=== PATIENT | male | born 1955 | race Caucasian/White ===

== ENCOUNTER → 2023-06-23 08:17 | Outpatient (REF) | payer BC, SELFPAY | LOC: DHCBS MAIN 08:17 | PROVIDERS: ATTENDING PHYSICIAN Internal Medicine Cardiovascular Disease; FAMILY PHYSICIAN Internal Medicine | DX: I10 Essential (primary) hypertension (principal) | CPT/HCPCS: 93306 ==

== ENCOUNTER 2024-08-28 15:53 | Inpatient (IN) | payer BC, SELFPAY ==
[2024-08-28] VITALS (12 sets, daily range): BP systolic 101–132; BP diastolic 65–93; BMI 31.7
--- NOTE | 2024-08-28 10:31 | ED.GENMED ---
History of Present Illness
General
Chief Complaint: Breathing Problem
Source: patient
Time Seen by Provider: 08/28/24 10:13
History of Present Illness
History of Present Illness:
68-year-old male presents to the emergency room from outpatient stress test where he essentially failed a stress test. Patient has been experiencing shortness of breath with walking short distances. It is significant enough that he has to stop and
rest. Patient was referred for stress test today and performing the stress test developed shortness of breath fatigue and was noted to have heart block as well as ST depression in the inferior leads
Past History
Past History
ED Past Medical History: CAD, HTN, Hypercholesterolemia and IDDM
Social History
Tobacco: Non-smoker
Alcohol: Occasional
Drug: None
Personal:
Living: with family
Phy Exam
Physical Exam
Physical Exam:
General: Awake, Alert, Oriented X3. No acute distress.
Vitals: unremarkable
Head: Atraumatic
Eyes: Pupils equal, EOMI
Throat: Airway intact, no exudates
Neck: Trachea midline
Lungs: Clear and equal b/l
Heart: Regular rate, no murmurs
Abd: Soft, Nontender, No pulsatile mass
Neuro: Nonfocal
Skin: Warm, dry, no rash
Extremities: pulses equal b/l, no edema
Scores
Heart Failure Risk
Heart Failure Risk Score: Not Applicable
Course
Orders/Labs/Results
Orders:
Orders
08/28/24 Lunch
Cholesterol Lowering
Cholesterol Lowering: Sodium, 2 Gram
1800 martha/15 CHO Diabetic
08/28/24 10:21
EKG [Electrocardiogram (*1)] Urgent
Reason for Study: Shortness of Breath
EKG- Treatment ONCE
08/28/24 10:30
Cardiac Monitoring- Treatment ONCE
CR Chest Portable - 1 View Urgent
Comment:
Reason For Exam: chest pain, sob
Reason Study Needs to be Portable: Patient Unstable
08/28/24 10:32
Nitroglycerin 100 mg/250 ml [Nitroglycerin Premix] 100 mg in 250 ml IV NOW
Initial dose in mcg/min, then titrate:: 5
Titrate to keep:: SBP < 160 mmHg
Titrate by mcg/min:: 5 mcg/min, may increase by 10 mcg/min if dose > 20 mcg/min
Frequency of titrations (minutes):: every 3-5 minutes
Maximum dose in mcg/min:: 200
Begin to taper infusion when:: Remained at goal for 2hrs
Taper by mcg/min:: 5 mcg/min
Frequency of taper (minutes) if patient maintains goal:: 30
Taper to off?: Yes
If infusion off & no longer maintaining goal:: Contact Provider
08/28/24 10:34
Aspirin Chewable [Low Strength Aspirin] 324 mg PO NOW STA
08/28/24 10:38
Basic Metabolic Panel Urgent
Complete Blood Count/With Diff Urgent
Magnesium Urgent
NT-proBNP Urgent
Comment: [place] PER [id number]
Troponin I Urgent
08/28/24 10:41
Heparin 4,000 units IV NOW STA
Pharmacy Request to Place See Dose Instructions PO NOW STA
Discontinue all Active Warfarin orders?: Yes
08/28/24 10:[address] Non Medication Order As Directed
Physician Order: PTT 6 hours after initial start of Heparin infusion
Above order entered?: Yes
08/28/24 10:43
PTT Urgent
Comment: Obtain baseline before beginning heparin infusion if not already collected
08/28/24 10:45
Heparin [id number] Units/250 ml 25,000 units in 250 ml IV PER PROTOCOL
Weight to be used for heparin protocol in kilograms (kg):: 112
Protocol:: Cardiac Tx/Acute Coronary
PTT Goal Range to be used:: PTT 73 to 111 seconds
Order type:: Initial
INITIAL Infusion Dose (UNITS/KG/hr) & then follow protocol:: 15 units/kg/hr
Infusion Dose in UNITS/hr & then follow protocol (UNITS/hr):: 1,500
INFUSION RATE in mL/hr & then follow protocol (mL/hr):: 15
PTT less than or equal to 64 seconds:: Increase rate by 200 units/hr (+ 2 mL/hr)
PTT 64.1 to 72.9 seconds:: Increase rate by 100 units/hr (+ 1 mL/hr)
PTT 73 to 111 seconds:: Target Range. No change in rate.
PTT 111.1 to 130.9 seconds:: Decrease rate by 100 units/hr (- 1 mL/hr)
PTT 131 to 199.9 seconds:: HOLD for 1 hr. Then decrease rate by 200 units/hr (- 2 mL/hr)
PTT greater than or equal to 200 seconds:: HOLD for 2 hrs & Notify Provider. Then decrease by 200 units/hr (-
2 mL/hr)
Lab follow-up:: Each change, PTT q6h until 2 consecutive are therapeutic. Then PTT
daily.
08/28/24 11:[address] See Dose Instructions IV DIRECTED
08/28/24 11:02
Heparin [id number] Units/250 ml 25,000 units in 250 ml .ROUTE .STK-MED
08/28/24 11:43
Verapamil Injectable [Isoptin/Verapamil Injection] 5 mg .ROUTE .STK-MED ONE
08/28/24 11:44
Heparin 1000 Units/500 ml [Heparin] 1,000 units in 500 ml .ROUTE .STK-MED
Heparin Sodium,Porcine/Ns/Pf [Heparin 2000 Units/1000 ml] 2,000 unit in 1,000 ml .ROUTE .STK-MED
Lidocaine HCl/Pf [Xylocaine-Mpf 1% Vial] 50 mg .ROUTE .STK-MED ONE
Nitroglycerin [Tridil] 1,500 mcg .ROUTE .STK-MED ONE
08/28/24 12:13
Fentanyl Citrate/Pf [Sublimaze] 100 mcg .ROUTE .STK-MED ONE
Heparin 10,000 units .ROUTE .STK-MED ONE
Midazolam HCl [Versed] 2 mg .ROUTE .STK-MED ONE
08/28/24 12:15
Heparin [id number] Units/250 ml 25,000 units in 250 ml IV PER PROTOCOL
Weight to be used for heparin protocol in kilograms (kg):: 112
Protocol:: Cardiac Tx/Acute Coronary
PTT Goal Range to be used:: PTT 73 to 111 seconds
Order type:: Initial
INITIAL Infusion Dose (UNITS/KG/hr) & then follow protocol:: 15 units/kg/hr
Infusion Dose in UNITS/hr & then follow protocol (UNITS/hr):: 1,500
INFUSION RATE in mL/hr & then follow protocol (mL/hr):: 15
PTT less than or equal to 64 seconds:: Increase rate by 200 units/hr (+ 2 mL/hr)
PTT 64.1 to 72.9 seconds:: Increase rate by 100 units/hr (+ 1 mL/hr)
PTT 73 to 111 seconds:: Target Range. No change in rate.
PTT 111.1 to 130.9 seconds:: Decrease rate by 100 units/hr (- 1 mL/hr)
PTT 131 to 199.9 seconds:: HOLD for 1 hr. Then decrease rate by 200 units/hr (- 2 mL/hr)
PTT greater than or equal to 200 seconds:: HOLD for 2 hrs & Notify Provider. Then decrease by 200 units/hr (-
2 mL/hr)
Lab follow-up:: Each change, PTT q6h until 2 consecutive are therapeutic. Then PTT
daily.
08/28/24 12:34
Furosemide [Lasix] 100 mg .ROUTE .STK-MED ONE
08/28/24 12:40
Arterial Blood Gas Urgent
08/28/24 13:16
Heparin 10,000 units .ROUTE .STK-MED ONE
08/28/24 13:26
Phenylephrine HCl/0.9% NaCl [Eduardo-Synephrine] 1,000 mcg .ROUTE .STK-MED ONE
08/28/24 13:28
NORepinephrine 4 MG/250 ML [Levophed] 4 mg in 250 ml .ROUTE .STK-MED
08/28/24 13:56
Admit Patient As Directed
Co-Sign Provider:
Level of Care: Inpatient admission
Assign to:: IVU
Physician / Group: dca
Diagnosis: NSTEMI
Reason for Hospitalization: NSTEMI
Expected length of stay greater than two midnights?: Yes
ELOS- Estimated Length of Stay in days: 2
I certify the patient meets the requirements for IP care: Yes
Electrocardiogram (*1) Urgent
Reason for Study: Other
Other Reason for Exam: s/p intervention
Comment: dca
CARDIAC REHAB CONSULT Routine
Co-Sign Provider:
Cardiac Rehab & Exercise Evaluation Referral
Type of Cardiac Rehab Referral: Outpatient
Diagnosis: NSTEMI
Date of Diagnosis/Surgery: 08/28/24
Referring Provider: Geovanna Rosales
[facility] Intensive Cardiac Rehab Exercise Prescription
The above named person is capable of participating in an intensive cardiac rehab exercise therapy program
under the guidance of the [facility] cardiac rehab staff, outpatient registered dieticians and
supervision of a physician.
ICR Program Objectives:
Provide supervised exercise, cooking classes, nutritional counseling and healthy mind-set education to
improve the function/symptom free work capacity to an optimal level as well as control risk factors to
prevent the progression of heart disease. During the supervised exercise therapy session some or all of
the following may be included in the cardiac rehab session: ECG telemetry, BP, heart rate, rate of
perceived exertion, symptoms/tolerance, cholesterol testing and education. Exercise modalities may
include: treadmill, upright or recumbent bike, spin bike, rowing machine, elliptical, recumbent
elliptical, arm-bike machine, recumbent stepper and free weights.
Intensity:
All CR staff will use ACSM guidelines: Most patients will exercise in the following range: Heart Rate
[place] range of 40% to 80% & Oxygen Uptake reserve range 40-80% (VO2R). Peak heart rate and VO2 are
derived from the cardiac rehab submaximal graded exercise test at RPE of 13/14 out of 20. Initial
intensity range: RPE 11 to 14/20 and may expand to 11 to 16/20.
Duration & Frequency:
If appropriate the patient will be progressed up to 40 minutes of exercise therapy. Patients will be
instructed to come three times a week in cardiac rehab and at a home/other gym to achieve optimal
physical activity/exercies i.e. 4000-10,000 steps per day.
Education:
The patient will receive one-on-one education during their orientation, initial exercise evaluation, ITP
reassessments and discharge session. Each exercise session will also include an education class (30-40
minutes).
VTE Contraindication Routine
VTE Mechanical Device Contraindication: Low Risk- LOS < 2 days
Pharmocologic Contraindication: Low Risk- LOS < 2 days
Risk assessment completed and pt is low risk: Yes
Acetaminophen [Tylenol] 650 mg PO Q4HPRN PRN
Activity As Directed
Activity Level: Out of Bed- Chair
Comment: bed/chair rest for 2 hours then out of bed ad eycenia
[facility] Procedure As Directed
Cardiac Cath Procedure: percutaneous coronary intervention
Intake/ Output As Directed
Frequency: Per unit guidelines
Notify MD As Directed
Notify physician if: immediately for chest pain or bleeding from access site(s)
Radial Artery Hemostasis Method As Directed
Instructions:: 3 mL out at 2 hour posts placement of band
3 mL out at 2 1/2 hours post placement of band
3 mL out at 3 hours post placement of band
Off at 3 1/2 hours post placement of band
If any oozing or hemotoma occurs:: re-inflate band and call provider
Site Checks As Directed
Check access site for bleeding/hematoma: Yes
Comment: on arrival, Q15min x4, Q30min x2, Q1 hr x2, Q2 hr x2, Q4 hr or per
protocol
Vascular Checks As Directed
Location: distal to access site - pulse check
Frequency: Other
Comment: on arrival, Q15min x4, Q30min x2, Q1 hr x2, Q2 hr x2, Q4 hr or per protocol
Vital Signs As Directed
Frequency: Other
Additional Instructions:: on arrival, Q15min x4, Q30min x2, Q1 hr x2, Q2 hr x2, then Q4 hr or per unit
protocol
08/28/24 13:57
PRN Pain Medication Management As Directed
May give lesser potent ordered pain med per pt: Yes
preference::
Protocol:: Medication orders for pain may be administered in a
manner that supports deferring to patient preference
when the pt is:
- Requesting an ordered lesser potent pain medication.
Least to most potent pain medications are defined
as: acetaminophen < NSAID < tramadol < opioids
(morphine, oxycodone, hydromorphone).
- Requesting a lesser dose of the same medication IF
ORDERED.
- Requesting a less intrusive route of administration
if both routes are prescribed by the provider (PO <
IV).
08/28/24 14:00
0.9% Sodium Chloride 1000 ml [Nss] 1,000 ml IV PER PROTOCOL
Infusion rate in mL/kg/hr:: 1.5
Infusion rate in mL/hr:: 168
Duration of infusion (hours):: 5
08/28/24 14:02
Dextrose 50%-Water [Dextrose 50% Syringe] 12.5 grams IV [id number] PRN
Glucagon [GlucaGen] 1 mg IM PRN PRN
Bedside Glucose Monitoring As Directed
Frequency: AC&HS
Additional Instructions:: Change to q6h if pt on TPN, tube feeding or not eating
08/28/24 14:03
Heparin 1000 Units/500 ml [Heparin] 1,000 units in 500 ml .ROUTE .STK-MED
08/28/24 16:00
Repaglinide [Prandin] 4 mg PO TID
08/28/24 16:30
Insulin Aspart Corrective Mod [Novolog Flexpen-Moderate Resistance] See Protocol SC AC
insulin lispro-aabc [Lyumjev KwikPen U-100 Insulin] 12 sliding scale dose SC AC
08/28/24 18:00
insulin glargine [Lantus Solostar U-100 Insulin] 40 unit SC QPM
08/28/24 20:00
Troponin I Q8H
omega-3 acid ethyl esters 2 grams PO BID
08/28/24 22:00
Buspirone [Buspar] 15 mg PO HS
08/29/24 04:00
Troponin I Q8H
08/29/24 06:00
Electrocardiogram (*1) IN AM
Reason for Study: Other
Other Reason for Exam: s/p intervention
Comment: dca
Basic Metabolic Panel IN AM
Cardiovascular Evaluation IN AM
Complete Blood Count/No Diff IN AM
Glycohemoglobin (HgbA1c) IN AM
Magnesium IN AM
08/29/24 08:00
Aspirin Low Dose EC [Aspir Low (Enteric Coated)] 81 mg PO DAILY
Buspirone [Buspar] 7.5 mg PO DAILY
Metoprolol [Lopressor] 100 mg PO DAILY
Rosuvastatin Calcium [Crestor] 40 mg PO DAILY
Tamsulosin [Flomax] 0.4 mg PO DAILY
Triamterene/Hctz [Dyazide] 1 capsule PO DAILY
finerenone [Kerendia] 20 mg PO DAILY
08/30/24 06:00
Basic Metabolic Panel IN AM
Complete Blood Count/No Diff IN AM
Magnesium IN AM
Abnormal Lab Results
08/28/24 08/28/24 08/28/24
10:38 12:40 12:55
WBC 12.9 H 10^3/uL
(4.8-10.8)
MPV 13.2 H fL
(7.4-10.4)
Abs Immat Gran (auto) 0.2 H 10^3/uL
(0-0.05)
Absolute Neuts (auto) 10.4 H 10^3/uL
(1.4-6.5)
Absolute Monos (auto) 0.9 H 10^3/uL
(0.1-0.6)
Immature Gran % 1.7 H %
(0-0.5)
Neutrophils % 80.6 H %
(42.2-75.2)
Lymphocytes % 9.6 L %
(20.5-51.1)
pCO2 30 L mmHg
(35-48)
pO2 74 L mmHg
(83-108)
HCO3 17.7 L mmol/L
(21-28)
BUN 33 H mg/dl
(9-20)
Creatinine 1.7 H mg/dL
(0.7-1.3)
Glucose 167 H mg/dl
(70-99)
Troponin I 1.340 H* ng/ml
POC ACT Low Range 227 H Seconds
(116-155)
08/28/24 08/28/24
13:09 13:23
WBC
MPV
Abs Immat Gran (auto)
Absolute Neuts (auto)
Absolute Monos (auto)
Immature Gran %
Neutrophils %
Lymphocytes %
pCO2
pO2
HCO3
BUN
Creatinine
Glucose
Troponin I
POC ACT Low Range 287 H Seconds 302 H Seconds
(116-155) (116-155)
08/28/24 10:38
08/28/24 10:38
Vital Signs
Initial and Last Documented VS:
Initial Vital Signs
Temp Pulse Resp BP Pulse Ox
98.2 F 105 16 113/82 100
08/28/24 10:11 08/28/24 10:11 08/28/24 10:11 08/28/24 10:11 08/28/24 10:11
Last Documented Vital Signs
Temp Pulse Resp BP Pulse Ox
98.2 F 96 21 113/82 99
08/28/24 10:11 08/28/24 10:30 08/28/24 10:30 08/28/24 10:16 08/28/24 10:40
MDM/Problems Addressed
Differential Diagnosis Includes:
NSTEMI, angina, conduction abnormality
MDM/Problems Addressed:
Patient developed chest discomfort, dizziness during a stress test. On the conductor freight he was observed to be in heart block ([place] 2). Patient arrives to the emergency room with 5 out of 10 chest pain. Nitro drip, heparin drip initiated.
Troponin is elevated on lab studies. Cardiology came to evaluate the patient at the bedside. He was taken to the [facility].
*Radiology
Radiology exam reviewed: preliminary read by ED provider (No acute abnormality)
*Pulse Oximetry
Patient hypoxic: no
*EKG
Interpretation: abnormal
Heart Rate: 97
Rate: normal
Rhythm: sinus
QRS Pattern: other (Nonspecific intraventricular conduction delay)
Ischemia: non-specific ST changes
*Dietary Director Interpretation
Rate: normal
Interpretation: normal
Rhythm: sinus
*Critical Care Note
Total Time (30-74mins, 75-104mins- exclusive of procedures): 33 min
comment:
Critical care statement: A total of 33 minutes of critical care time was provided for this patient. This includes management of unstable vital signs, evaluation of the patient at bedside, reviewing the patient�s pertinent medical records, discussion
with consultants, review of old EKGs and review of pertinent medical records. This time with separate from time utilized to perform the aforementioned documented procedures
ED Attending Note
-
Portions of this chart may have been created with voice recognition software.� Occasional wrong word or��sound alike� substitutions may have occurred due to the inherent limitations of voice recognition software.
Discharge Plan
Departure
Patient Disposition: Admit
Date of Disposition: 08/28/24
Time of Disposition: 11:27
Admit to: IVU
Presentation/result/management discussed w/ accepting MD/DO: Dr. sim
Condition: Serious
Discharge Problem:
Acute non-ST elevation myocardial infarction (NSTEMI)
Interventions
Interventions:
*Risk Screen - Suicide Last Done: 08/28/24 10:11
*General Assessment Last Done: 08/28/24 10:11
*Neglect/Abuse Screening Last Done: 08/28/24 10:11
*ED- Fall Risk Assessment Last Done: 08/28/24 10:42
*ED COVID-19 Vaccine History Last Done: 08/28/24 10:42
*Nursing Disposition Last Done: 08/28/24 12:12
ED- Cardiac Assessment Last Done: 08/28/24 10:40
ED- Pulmonary Assessment Last Done: 08/28/24 10:40
Discharge Date and Time
Discharge Date/Time: 08/28/24 12:13
--- NOTE | 2024-08-28 10:38 | CON.CAR ---
Addendum entered and electronically signed by Geovanna Rosales MD 08/28/24 18:19:
I saw and examined the patient.
[employer]'s note was reviewed and I agree with the note.
Comment: Patient is a 68-year-old gentleman with past medical history of hypertension, morbid obesity, hyperlipidemia, insulin-dependent type 2 diabetes mellitus, CKD stage IIIa, baseline creatinine of about 1.5, history of elevated ANCA titers
without evidence of active ANCA vasculitis, follows chronically with nephrology for his CKD, mild aortic stenosis with peak and mean transaortic gradients of 22 and 13 mmHg and possible fusion of noncoronary and left coronary cusp by echo on
June 23, 2023 with LVEF of 55 to 60%, coronary artery disease status post 2.5 x 23 mm drug-eluting stent to OM1, postdilated with a 2.5 x 15 mm NC balloon to 12 dain at [facility], repeat cath in 2005 with previously placed OM1
stent patent with subtotal occlusion of the distal LAD status post 2.5 x 24 mm Taxus drug-eluting stent to distal LAD, postdilated with a 2.5 x 15 mm NC balloon at 14 dain and a 3.5 x 20 mm Taxus drug-eluting stent to the distal RCA on January 19,
2005, overlapped with a 3.0 x 16 mm Taxus drug-eluting stent, postdilated with stent balloon to 18 dain who presents after attempting a exercise nuclear stress test with recurrent episode of chest pressure and high-grade AV block concerning for a
hide a stress test in the setting of 2 months of progressive exertional dyspnea and intermittent episodes of exertional chest pressure.
Vital signs and lab work reviewed. Initial troponin elevated at 1.34. On exam patient is complaining of ongoing mild chest discomfort and appears to be in mild distress but breathing comfortably, regular rate, 2 out of 6 systolic ejection murmur,
loudest at the right upper sternal border, fine bibasilar Rales, abdomen is soft, nontender, nondistended with active bowel sounds, warm extremities without significant edema
Recommendations
1. Initiate treatment for acute coronary syndrome with full dose aspirin, IV unfractionated heparin, high intensity statin.
2. Given ongoing 5 out of 10 chest pain in the emergency room, decision was made to bring patient up emergently to the heart catheterization lab to rule out obstructive CAD. IV nitroglycerin drip was also initiated to attempt getting patient
chest pain free and route.
3. Extensive discussion was had with patient regarding risk and benefit of the procedure with plan to access via right radial artery and after informed consent plan was to proceed with heart catheterization emergently.
Further recommendations based on findings of heart catheterization.
Geovanna Rosales MD, [facility], [facility]
Original Note:
Consultation
Consultation Request
Date/Time Consultation Requested: 08/28/24
Date/Time Consultation Performed: 08/28/24
Performing Provider: Dr. Rosales
Reason for Consultation: H&P for chest pain, ACS
Medical History
-
History of Present Illness:
Patient came to the ER today with chest pain while attempting a stress test at the [facility] and cardiology has been asked to see the patient in the ER. Patient was seen in the office on 08/15/2024 with complaints of CP and LOZA. Patient has a history of
CAD as outlined above including OM-1 PCI at [facility] in 2002. Last cath was in 2005 and at that time the OM-1 stent was patent but there was new distal LAD and distal RCA disease both of which were treated with Taxus BOB. Patient takes aspirin 81 mg
daily as an outpatient, but missed the dose today while he was NPO for stress test. Patient attempted exercise nuclear stress test at the [facility] and at the end of stage I and the beginning of stage II he has started with increased CP and ECG showed
new 3-1 AV block. Exercise was stopped before patient reached 85% of MPHR. Chest pain was waxing and waning. Patient completed second set of nuclear images and final report is pending. Patient had ongoing pain and was referred to the ER where
initial troponin was elevated at 1.34. When I saw the patient he continued with a 5 out of 10 CP and was in the process of receiving NTG gtt, aspirin chewable and heparin gtt.
PMH:
CAD
s/p 2.5 mm BOB to OM-1 at [facility] 04/29/03
s/p cath with patent previously placed OM-1 stent and then 2.5 mm Taxus to distal LAD and 3.5 mm Taxus to distal RCA 01/19/06
Mild with peak/mean 22/13 mmHg and possible fusion of the noncoronary and left coronary cusps by echo 06/23/2023
HTN
LAFB
Hyperlipidemia
DM 2
CKD 3a, baseline Cre 1.5
h/o elevated ANCA titer without evidence of active ANCA vasculitis
Past Medical History
Past Medical History: Other (in HPI)
Past Surgical History: Cardiac (OM PCI at [facility] 2002, RCA PCI at [facility] 2005)
Social History
Tobacco: Former Smoker
Alcohol: None
Drug: None
Personal:
Living: With Family
Family History
Family History: CAD and Diabetes
Allergies / Home Medications
Allergy/AdvReac Type Severity Reaction Status Date / Time
No Known Allergies Allergy Verified 08/28/24 10:19
Review of Systems
-
History Source: Patient and Family ( bedside in the ER helping with HPI)
All other systems: Negative unless noted
Physical Exam
Vital Signs
Temp Pulse Resp BP Pulse Ox
98.2 F 105 16 113/82 100
08/28/24 10:11 08/28/24 10:11 08/28/24 10:11 08/28/24 10:11 08/28/24 10:11
GEN: NAD. AAOx3
HEENT: EOMI, MMM
LUNGS: RA. Clear anterolaterally without wheeze
CV: Reg, S1/S2, 2/6 syst LSB
ABD: soft, BS+, NT, ND
EXT: No clubbing, cyanosis, lesions or edema B/L
NEURO: Gross non-focal
SKIN: Warm, dry and pink. No rash
Lab Results
Labs/02/13:
CBC: Hgb 4.5, WBC 12.9, PLT 177
CMP:Cre 1.7, BUN 33, sodium 142, potassium 4.3, blood sugar 167, troponin 1.34
Impression / Plan
-
PCP: Dr. Cornelius Rodriguez
Card: Dr. Oakes
Impression:
Admitted with chest pain and abnormal stress test/02/13
NSTEMI, initial troponin 1.34
CAD
s/p 2.5 mm BOB to OM-1 at [facility] 04/29/03
s/p cath with patent previously placed OM-1 stent and then 2.5 mm Taxus to distal LAD and 3.5 mm Taxus to distal RCA 01/19/06
Mild with peak/mean 22/13 mmHg and possible fusion of the noncoronary and left coronary cusps by echo 06/23/2023
HTN
LAFB
Hyperlipidemia
DM 2
CKD 3a, baseline Cre 1.5
h/o elevated ANCA titer without evidence of active ANCA vasculitis
Echo 06/23/2023: EF 55 to 60%, normal RV size and function, mild MR, calcified aortic valve with restricted leaflet motion and possible fusion of the noncoronary and left coronary cusps, mild with peak/mean 22/13 mmHg
Plan:
-Patient came to the ER today with chest pain while attempting a stress test at the [facility] and cardiology has been asked to see the patient in the ER. Patient was seen in the office on 08/15/2024 with complaints of CP and LOZA. Patient has a history of
CAD as outlined above including OM-1 PCI at [facility] in 2002. Last cath was in 2005 and at that time the OM-1 stent was patent but there was new distal LAD and distal RCA disease both of which were treated with Taxus BOB. Patient takes aspirin 81 mg
daily as an outpatient, but missed the dose today while he was NPO for stress test. Patient attempted exercise nuclear stress test at the [facility] and at the end of stage I and the beginning of stage II he has started with increased CP and ECG showed
new 3-1 AV block. Exercise was stopped before patient reached 85% of MPHR. Chest pain was waxing and waning. Patient completed second set of nuclear images and final report is pending. Patient had ongoing pain and was referred to the ER where
initial troponin was elevated at 1.34. When I saw the patient he continued with a 5 out of 10 CP and was in the process of receiving NTG gtt, aspirin chewable and heparin gtt.
-ECG reviewed by me is SR with lateral ST changes
-Initial troponin 1.34. Ongoing CP. Overall symptoms are concerning for ACS and likely NSTEMI. Talked with patient and about management options including cardiac cath. We talked about the risk versus the benefit of cardiac cath. Patient
had previous cardiac cath at [facility], both cases were femoral access. We discussed likely radial access, but outlined that if needed we would go back to femoral access.
-Aspirin 324 mg chewable now, ordered and administered in the ER
-Heparin 4000 unit bolus now, ordered and administered in the ER.
-Nitro gtt titrating to start now, ordered and administered in the ER
-Check HgbA1c
-Check CV and continue outpatient dose of Crestor 40 mg daily.
Patient was taking Toprol-XL 50 mg daily prior to admission and this will be continued
-Patient was taking ramipril 10 mg daily prior to admission and pending Cre will resume.
-Patient with known CKD 3 AA and baseline Cre of 1.5. Cre in the ER was 1.7.
-Nephrology office note from 08/12/2024 reviewed by me, patient has a history of an elevated ANCA level, but not felt to be concerning [place] and there was no evidence of ANCA vasculitis so biopsy was deferred. The plan was to only pursue biopsy if
there was an increase in the ANCA titer level, worsening renal function or if there was severe proteinuria.
[2024-08-28] MEDS: LOW STRENGTH ASPIRIN 324 MG PO (10:52)
[2024-08-28] MEDS: NITROGLYCERIN PREMIX 250 IV (10:57)
[2024-08-28] MEDS: HEPARIN 4000 UNITS IV (11:02)
[2024-08-28 11:03] LABS: APTT 27.7 Sec (23.4-35.0)
[2024-08-28 11:06] LABS: Blood Urea Nitrogen 33 mg/dl (9-20); Calcium 9.6 mg/dl (8.4-10.2); Carbon Dioxide 23 mmol/L (22-30); Chloride 107 mmol/L (98-107); Estimated Creatinine Clearance 56 ml/min; Glucose 167 mg/dl (70-99); Potassium 4.3 mmol/L (3.5-5.1); Sodium 142 mmol/L (135-145); eGFR 43.64
[2024-08-28 11:13] LABS: % Basophils 0.4 % (0-2); % Eosinophils 0.8 % (0-6); % Immature Granulocytes 1.7 % (0-0.5); % Lymphocytes 9.6 % (20.5-51.1); % Monocytes 6.9 % (1.7-9.3); % Neutrophils 80.6 % (42.2-75.2); Absolute Basophils 0.1 10^3/uL (0-0.2); Absolute Eosinophils 0.1 10^3/uL (0-0.7); Absolute Immature Granulocytes 0.2 10^3/uL (0-0.05); Absolute Lymphocytes 1.2 10^3/uL (1.2-3.4); Absolute Monocytes 0.9 10^3/uL (0.1-0.6); Absolute Neutrophils 10.4 10^3/uL (1.4-6.5); Hematocrit 43.6 % (39.0-52.0); Hemoglobin 14.5 g/dL (13.0-18.0); Mean Corp Hgb Conc. 33.3 g/dL (33.0-37.0); Mean Corpuscular Hgb 28.1 pg (27.0-31.0); Mean Corpuscular Volume 84.5 fL (80.0-94.0); Mean Platelet Volume 13.2 fL (7.4-10.4); Nucleated Red Blood Cells % 0 % (-); Platelet Count 177 10^3/uL (130-400); Red Blood Cell Count 5.16 10^6/uL (4.70-6.10); Red Cell Dist. Width 13.6 % (11.5-14.5); White Blood Cell Count 12.9 10^3/uL (4.8-10.8)
[2024-08-28 12:52] LABS: B.E. -6.1 mmol/L; HCO3 17.7 mmol/L (21-28); O2 Saturation % 95.3 % (94-98); PCO2 30 mmHg (35-48); PO2 74 mmHg (83-108); pH 7.38 (7.35-7.45)
[2024-08-28 12:59] LABS: ACT-LR - POC 227 Seconds (116-155)
[2024-08-28 13:17] LABS: ACT-LR - POC 287 Seconds (116-155)
[2024-08-28 13:20] LABS: NT-proBNP 2340 pg/ml
[2024-08-28 13:28] LABS: ACT-LR - POC 302 Seconds (116-155)
[2024-08-28 14:47] LABS: ACT-LR - POC 268 Seconds (116-155)
[2024-08-28 15:10] LABS: ACT-LR - POC 277 Seconds (116-155)
[2024-08-28 15:58] LABS: ACT-LR - POC > 397 Seconds (116-155)
--- NOTE | 2024-08-28 16:00 | HPS.HSE ---
Family Physician
-
Family Physician: Cornelius Kelley MD
Chief Complaint
-
chest pain
History of Present Illness
68-year-old male with PMH for CAD with cardiac stents, hypertension, type 2 diabetes, anxiety, BPH, stage III CKD,presents to the emergency room from outpatient stress test where he essentially failed a stress test. Patient stated midsternal chest
discomfort with exertion for few months with longer distance, but for few months it got worse with shorter distance. Patient stated associated short of breath. It is significant enough that he has to stop and rest. Patient attempted exercise
nuclear stress test and noted chest pain and ECG showed new 3-1 AV block. patient was refereed to ER. patient underwent cardiac cath with the impression of vessel disease. patient admitted to IVU. At rest resting in bed with no acute complaints.
Denied headache dizziness syncope. Patient denied any abdominal pain, nausea, vomiting or diarrhea. Patient denied any congestion, cough, fever, chills. Patient denied dysuria hematuria
Medical History
Past Medical History
Past Medical History: Reports Other
Additional Past Medical History:
HTN
CAD
type 2 Dm
anxiety
BPH
stage 2 CKD
hepers zoster
Past Surgical History: Reports Other
Additional Past Surgical History:
CAD stent
cataract surgery
Social History
Tobacco: Former Smoker
Alcohol: None
Drug: None
Living: With Family
Employment: Employed
Family History
Family History: Not pertinent
Allergies / Home Medications
Allergies reflects when Allergies were last updated in [employer].
Home Medications with original date entered in [employer]
Allergy/Medication List:
Allergies
Allergy/AdvReac Type Severity Reaction Status Date / Time
No Known Allergies Allergy Verified 08/28/24 10:19
Home Medications
aspirin 81 mg tablet,delayed release 81 mg PO DAILY 08/28/24
buspirone 15 mg tablet 7.5 mg PO DAILY 08/28/24
buspirone 15 mg tablet 15 mg PO HS 08/28/24
empagliflozin 10 mg tablet (Jardiance) 10 mg PO DAILY 08/28/24
finerenone 20 mg tablet (Kerendia) 20 mg PO DAILY 08/28/24
furosemide 40 mg tablet (Lasix) 40 mg PO DAILY 08/28/24
insulin glargine 100 unit/mL (3 mL) subcutaneous pen (Lantus Solostar U-100 Insulin) 40 unit SC QPM 08/28/24
insulin lispro-aabc 100 unit/mL subcutaneous pen (Lyumjev KwikPen U-100 Insulin) 12 sliding scale dose SC AC 08/28/24
metoprolol succinate 50 mg tablet,extended release 24 hr 100 mg PO DAILY 08/28/24
omega-3 acid ethyl esters 1 gram capsule 2 g PO BID 08/28/24
repaglinide 2 mg tablet 4 mg PO TID 08/28/24
rosuvastatin 40 mg tablet (Crestor) 40 mg PO DAILY 08/28/24
tamsulosin 0.4 mg capsule (Flomax) 0.4 mg PO DAILY 08/28/24
tirzepatide 5 mg/0.5 mL subcutaneous pen injector (Mounjaro) 5 mg SC MO 08/28/24
triamterene 37.5 mg-hydrochlorothiazide 25 mg capsule 1 cap PO DAILY 08/28/24
Review of Systems
-
Constitutional: Reports No Symptoms
EENT: Reports No Symptoms
Respiratory: Reports Trouble Breathing
Cardiac: Reports Chest Pain
Abdomen/GI: Reports No Symptoms
: Reports No Symptoms
Musculoskeletal: Reports No Symptoms
Skin: Reports No Symptoms
Neurological: Reports No Symptoms
Endocrine: Reports No Symptoms
Hematologic/Lymphatic: Reports No Symptoms
Psych: Reports No Symptoms
Physical Exam
Vital Signs
Vital Signs
Temp Pulse Resp BP Pulse Ox
98.2 F 96 21 113/82 99
04/09/25 10:11 08/28/24 10:30 08/28/24 10:30 08/28/24 10:16 08/28/24 10:40
Physical Exam
General: Well Developed, Well Nourished and No Apparent Distress
HEENT: NormoCephalic, Moist mucous membranes and Atraumatic
Respiratory: Clear
Cardiac: S1/S2 and Regular Rhythm; No Murmur or Rub
GI: Soft, Non Tender, Non Distended and Normal Bowel Sounds; No Organomegaly
Rectal: Deferred by Provider
Musculoskeletal: No Clubbing, No Cyanosis and No Edema
Skin: No Rash
Neuro: AO x 3 and Nonfocal/grossly intact
Psych: Calm
Laboratory Results
-
08/28/24 10:38
08/28/24 10:38
Laboratory Results
APTT 27.7 Sec (23.4-35.0) 08/28/24 10:43
pH 7.38 (7.35-7.45) 08/28/24 12:40
pCO2 30 mmHg (35-48) L 08/28/24 12:40
pO2 74 mmHg (83-108) L 08/28/24 12:40
HCO3 17.7 mmol/L (21-28) L 08/28/24 12:40
Troponin I 1.340 ng/ml H* 08/28/24 10:38
Data Reviewed
-
Lab Data: Labs Reviewed by me
Impression/Plan
-
#chest pain secondary to NSTEMI
-trop elevated at 1.34
-EKG with SR with lateral ST changes
-asa and heparin
-nitro drip
-crestor 40 daily
-ECHO
-s/p cath today with 2 vessel disease
-CT surgeon consulted
# Anxiety
-BuSpar continued
# Type 2 diabetes
- Repaglinide continued
-sliding scale
- CHO diet
- Lantus continue
# CKD stage IIIa
- Creatinine 1 point
- Kerendia continued
# BPH
- Flomax continued
# Hypertension
-Metoprolol, triamterene-HCTZ continued
# DVT prophylaxis
-on heparin drip
# CODE STATUS
-Full code
--- NOTE | 2024-08-28 16:48 | ITS.CL.CATH ---
Brand Director - Catheterization
Cardiac Catheterization
Procedure Report:
LEFT HEART CATHETERIZATION
Date of Procedure: August 28, 2024
Referring: [place] emergency department
PROCEDURES:
1. Left heart catheterization, coronary angiogram
2. Moderate sedation
3. Plain old balloon angioplasty of a hazy 95% distal RCA stenosis with CADENCE II flow into the RPDA with 3.0 x 20 mm semicompliant balloon at 16 dain with residual 40 to 50% stenosis and CADENCE-3 flow into the distal vessel along with symptom
improvement and stabilization of the respiratory status.
INDICATION: Patient is a 68-year-old gentleman with past medical history of hypertension, morbid obesity, hyperlipidemia, insulin-dependent type 2 diabetes mellitus, CKD stage IIIa, baseline creatinine of about 1.5, history of elevated ANCA titers
without evidence of active ANCA vasculitis, follows chronically with nephrology for his CKD, mild aortic stenosis with peak and mean transaortic gradients of 22 and 13 mmHg and possible fusion of noncoronary and left coronary cusp by echo on
June 23, 2023 with LVEF of 55 to 60%, coronary artery disease status post 2.5 x 23 mm drug-eluting stent to OM1, postdilated with a 2.5 x 15 mm NC balloon to 12 dain at [facility], repeat cath in 2005 with previously placed OM1
stent patent with subtotal occlusion of the distal LAD status post 2.5 x 24 mm Taxus drug-eluting stent to distal LAD, postdilated with a 2.5 x 15 mm NC balloon at 14 dain and a 3.5 x 20 mm Taxus drug-eluting stent to the distal RCA on January 19
2005, overlapped with a 3.0 x 16 mm Taxus drug-eluting stent, postdilated with stent balloon to 18 dain who presents after attempting a exercise nuclear stress test with recurrent episode of chest pressure and high-grade AV block concerning for a
high a stress test in the setting of 2 months of progressive exertional dyspnea and intermittent episodes of exertional chest pressure. After detailed informed consent, patient was brought up to the heart catheterization lab emergently in the
setting of ongoing chest pain. Even just getting the patient from the ED bed to the heart catheterization table while he was getting prepped for the procedure, his respiratory status worsened acutely and he needed to sit up using a wedge and
pillows at about 45 to 60 degree angle. His respiratory status was managed with IV diuretics, IV nitroglycerin drip, positive pressure ventilation etc. before proceeding to the heart catheterization.
ACCESS: Right radial artery, 6 [place] sheath, under ultrasound-guided
Ultrasound was utilized for vascular access. The radial artery was visualized under ultrasound, and the vessel was patent and pulsatile. An image was stored permanently in the patient's medical record. Under direct ultrasound guidance, a 6 [place]
sheath was inserted into the artery using a micropuncture kit through a modified Seldinger technique.
HEMODYNAMICS : (mmHg)
AO (s/d) : 104/70
LV (s/d) : 114/13
LVEDP : 32
CORONARY FINDINGS
DOMINANCE: Right
LEFT MAIN: The left main artery is a large-caliber vessel which gives rise to the left anterior descending artery and the left circumflex artery. There is mild diffuse atherosclerotic plaque.
LEFT ANTERIOR DESCENDING: The left anterior descending artery is a medium to large caliber vessel which gives rise to multiple small caliber diagonal branches as it courses to the anterior interventricular groove and wraps around the apex. There is
mild to moderate diffuse atherosclerotic plaque within the LAD with a focal 75 to 80% stenosis in the mid LAD just distal to the second small diagonal branch.. Mid to distal LAD has a previously placed stent which is patent. Distal LAD has
moderate to severe diffuse atherosclerotic plaque.
CIRCUMFLEX: The left circumflex artery has 100% occlusion at the ostium with faint right to left collaterals.
RIGHT CORONARY ARTERY: The right coronary artery is a large-caliber, dominant vessel which gives rise to the right posterior descending artery of the right posterolateral system. There is a hazy 95% distal RCA stenosis with CADENCE II flow into the
RPDA which is thought to be the culprit of presenting acute coronary syndrome with intervention as noted below.
CORONARY INTERVENTION: Given ongoing symptoms with no prior imaging available for review here at [facility], I reviewed images with Dr. Carlos Busby and we initially wondered if the culprit lesion could have been a ostial left circumflex
acute occlusion. So once his respiratory status was stabilized as detailed in another update note, we brought in a 6 [place] EBU 3.75 guide catheter to selectively engage the left coronary artery. We then attempted to wire into the left circumflex
using a 190 cm 0.014' run-through wire and despite multiple attempts, we could not successfully find a channel into the left circumflex. At this time I discussed the case with senior interventional partner, Dr. Montrell Funez and we decided that it
was likely a chronic total occlusion with right to left collaterals and therefore we decided to now turned our attention to the distal RCA obstructive stenosis. The right coronary artery was selectively engaged using a 6 [place] AL 0.75 guide
catheter. Through this we used the same 190 cm 0.014 run-through wire and with some difficulty successfully advance this into the distal RPDA. We predilated the lesion initially with a 2.5 x 12 mm semicompliant balloon at 14 dain with full
expansion. At this time we attempted to bring in a 2.75 x 15 mm Medtronic [place] drug-eluting stent however we could not advance this past the previously placed distal RCA stent. At this point we decided to further predilate using a 2.75 x 15 mm NC
balloon however we could not successfully advance this beyond the same point. We reattempted bringing this balloon in through a 6 [place] guide liner for support however even with GuideLiner support, we could not advance the balloon into the distal
RCA. We then attempted bringing in a 3.0 x 20 mm semicompliant balloon and we were able to successfully advance this with multiple inflations in the distal RCA into the prior stent at 14 to 16 dain with what appeared to be full expansion. Beyond
this we reattempted bringing in a 2.75 x 26 mm Medtronic [place] drug-eluting stent to cover the larger area that we had balloon and despite GuideLiner support we still could not advance the stent into the distal portion. I really tried by bringing in
the 3.0 x 20 mm semicompliant balloon and well inflated we really attempted to bring the guide liner deep to be able to 1 sheath and NC balloon however we could not advance the guide liner beyond the previously placed stent without the entire system
backing out. I rediscussed the case at this point with senior interventional partners, Drs. Daryn Busby, Montrell Funez and Mane Espino. We discussed that given we could not successfully advance any NC balloons or the stents, we did not feel like
shockwave balloons could be deliverable given higher profile though calcium modification would likely be needed. We discussed attempting orbital atherectomy at this point however given we had already given 175 cc of IV contrast in the setting of
CKD, we felt like this may increase risk for LI for this patient. Given at this point we had obtained CADENCE-3 flow down into the distal vessel and patient was chest pain-free and otherwise stable from a hemodynamic as well as respiratory standpoint
making urine with the previously given IV Lasix, we decided to stop any further interventions.
SEDATION: 57 minutes of procedural sedation was utilized. An independent medical imaging tech was present to assist with and help manage the patient's level of consciousness and physiologic status.
RADIATION SUMMARY: Fluoro Time (min): 34.5 dose (mGy): 3011.84, DAP (Gy.cm2) : 171.7 send
Closure Device: Vascular band over right radial artery, 10 cc of air.
CONCLUSIONS
1. Plain old balloon angioplasty of a hazy 95% distal RCA stenosis with CADENCE II flow into the RPDA with 3.0 x 20 mm semicompliant balloon at 16 dain with residual 40 to 50% stenosis and CADENCE-3 flow into the distal vessel along with symptom
improvement and stabilization of the respiratory status.
2. Elevated LVEDP at 32 mmHg.
RECOMMENDATIONS
1. Continue management for acute coronary syndrome with daily baby aspirin, IV unfractionated heparin, high intensity statin.
2. Heart team discussion with CT surgery consult and consideration for possible coronary artery bypass grafting to RPDA and LAD in the setting of known insulin-dependent diabetes and significant two-vessel coronary artery disease versus
reattempting PCI to the distal RCA with plan for atherectomy and staged PCI down the road of LAD.
3. Check full echocardiogram to assess biventricular function and rule out any significant valvular abnormalities.
4. Wean radioman per protocol.
5. Close monitoring on telemetry.
6. Eventual referral for outpatient cardiac rehab.
7. Aggressive management of cardiovascular risk factors.
Geovanna Rosales MD, FACC, [facility]
--- NOTE | 2024-08-28 17:06 | W.PN.UPDATE ---
Update Note
Progress Note Update
This is an addendum to the H&P written by Mary Bo on 08/28/2024.� Patient seen and examined independently with NEWS COPY EDITOR.
68-year-old male past medical history of CAD status post PCI in 2002, mild aortic stenosis, left anterior fascicular block, hypertension, hyperlipidemia, diabetes, CKD 3A, history of elevated ANCA titer presenting with chest pain and ongoing
shortness of breath with exertion.� He was referred for stress test today developed symptoms and was noted to have 3-[address] depressions in inferior leads so sent to the emergency room.
In the emergency room he was found to have troponin of 1.3 indicating NSTEMI.� EKG showed sinus rhythm with nonspecific intraventricular conduction block, LVH.� creatinine 1.7 from baseline of 1.4.
He was taken urgently to [facility] and found to have two-vessel disease.
He was initially started on heparin drip and nitroglycerin drip.� Continue daily aspirin.� Cardiology recommended CT surgery evaluation.
Lasix and Jardiance on hold.
[2024-08-28 17:10] LABS: Glucose - Point of Care 111 mg/dl (70-99)
[2024-08-28] MEDS: PRANDIN 4 MG PO (17:24)
[2024-08-28] MEDS: NOVOLOG FLEXPEN-MODERATE RESISTANCE SC (17:24)
--- NOTE | 2024-08-28 18:19 | W.PN.UPDATE ---
Update Note
Progress Note Update
Interventional cardiology update note
Soon as patient was moved from the stretcher to the heart catheterization table and prep was completed with plan for urgent heart catheterization, before I even scrubbed and he was found to have worsening hypoxic respiratory failure needing to be
placed on a wedge along with 2 pillows at about a 45 to 60 degree angle given tachypnea with oxygen saturations noninvasively down to 83%. In the setting patient also became increasingly tachycardic with heart rates in the 115s with stable blood
pressures in the 130s over 90s. Visibly he was tachypneic and working harder to breathe. His JVP was significantly elevated at about 11 to 12 cm of water with rhonchorous breath sounds and 2 out of 6 systolic ejection murmur loudest at the right
upper sternal border.
I urgently asked Hand Plate Stacker nursing to give him 80 mg of IV Lasix with his creatinine on presentation at 1.7. Respiratory therapist was urgently paged to bring down BiPAP given concern for acute decompensated diastolic heart failure in the setting of
ACS resulting in hypoxic respiratory failure warranting positive pressure ventilation. His nitroglycerin drip was increased to 20 mg IV as patient continued to complain of 5-6 out of 10 chest discomfort.
we proceeded to obtain right radial artery access to be able to send a blood gas and check a stat arterial saturation given his noninvasive pulse ox was in the low to mid 80s. Once right radial artery access was obtained, we sent off a proBNP as
well as a stat blood gas.
We also urgently proceeded to checking an LVEDP which was significantly elevated at 32 mmHg confirming our suspicion that patient was in acute hypoxic respiratory failure due to acute decompensated diastolic heart failure in the setting of acute
coronary syndrome.
On the monitor patient's heart rates were 115, nonspecific IVCD, frequent PVCs and ventricular couplets.
During the heart catheterization, given ongoing hypoxia, I asked the respiratory therapist to make further changing status BiPAP setting to 12/5 from initial 10/5 and increased FiO2. We also paged the anesthesia team in case his hypoxia does not
improve to consider mechanical ventilation and intubation. Given at this point his blood pressures were borderline low in the high 80s to low 90s, his nitroglycerin drip was discontinued.
I was informed by the staff that the proBNP came back elevated at 2340. His blood gas came back at 7.38/30/74/17.7. BUN and creatinine were 33 and 1.7. Potassium of 4.3, magnesium of 2.0.
Please refer to heart catheterization report for further procedural details.
Geovanna Rosales MD, [facility], [facility]
Critical care time: 31 minutes
The time documented above was spent providing direct care to this critically ill patient with acute decompensation of respiratory status prior to initiation of heart catheterization and does not include any time for procedures. Furthermore, in
calculating this total time I have been careful to only include the minimum time during which I personally was providing the critical care services listed to this patient. My critical care time includes examining the patient, review of laboratory
data and imaging studies, management of IV vasoactive medications, management of arrhythmias, review of ECG and telemetry, discussion with nursing and physician assistants to help coordinate care, discussing updates with family at bedside or via
phone and documentation.
[2024-08-28] MEDS: LANTUS 0.4 UNITS SC (18:25)
--- NOTE | 2024-08-28 19:17 | CONSULT.CT ---
Consultation
-
Date/Time Consultation Performed: 08/28/24 8:00pm
Performing Provider: Dr Nicholson
Reason for Consultation: CABG evaluation
Patient History
Physicians
Family Physician: Dr Cornelius Matta
Outpatient Parking Patroller: Dr Corby Oakes
Inpatient Parking Patroller: Dr Manpreet Rosales
History of Present Illness
68-year-old male presents to the emergency room from outpatient stress test where he essentially failed a stress test. Patient states he has been experiencing 2months of progressive LOZA and stable angina. He reports that walking short distances
requires frequent stops due to SOB. He denies LE edema, claudication, orthopnea, syncope, N/V, fevers, malaise. He was seen in the office on 08/15/2024 with complaints of CP and LOZA. Patient has a history of CAD, including OM-1 PCI at [facility] in 2002.
Last cath was in 2005 and at that time the OM-1 stent was patent but there was new distal LAD and distal RCA disease both of which were treated with Taxus BOB. Patient was referred for stress test today and performing the stress test developed
shortness of breath & fatigue, and was noted to have heart block as well as ST depression in the inferior leads. He reported to the ED as directed by his sole stitcher hand & in the ED initial troponin was elevated at 1.34.
Past Medical History
Past Medical History: Angina, CAD (status post 2.5 x 23 mm drug-eluting stent to OM1, postdilated with a 2.5 x 15 mm NC balloon to 12 dain at [facility], repeat cath in 2005 with previously placed OM1 stent patent with subtotal
occlusion of the distal LAD status post 2.5 x 24 mm Taxus drug-eluting stent to distal LAD,), HTN, Hypercholesterolemia, IDDM, SOB and Valvular Disease (mild with peak and mean transaortic gradients of 22 and 13 mmHg and possible fusion of
noncoronary and left coronary cusp by echo on June 23, 2023)
morbid obestity, CKD stage IIIa (baseline Cr 1.5), hx elevated ANCA titers without evidence of active ANCA vasculitis, LVEF 55-60% 06/23/23, LAFB
Past Surgical History
Past Surgical History: PCI/Stent (status post 2.5 x 23 mm drug-eluting stent to OM1, postdilated with a 2.5 x 15 mm NC balloon to 12 dain at [facility], repeat cath in 2005 with previously placed OM1 stent patent with subtotal
occlusion of the distal LAD status post 2.5 x 24 mm Taxus drug-eluting stent to distal LAD,)
Social History
Alcohol: Occasional
Drug: None
Tobacco: Former Smoker
Personal:
Living: With Family
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
Allergies
Allergy/AdvReac Type Severity Reaction Status Date / Time
No Known Allergies Allergy Verified 08/28/24 10:19
Home Medications
�Medication �Instructions �Recorded �Confirmed �Type
aspirin 81 mg tablet,delayed 81 mg PO DAILY 08/28/24 08/28/24 History
release
buspirone 15 mg tablet 7.5 mg PO DAILY 08/28/24 08/28/24 History
buspirone 15 mg tablet 15 mg PO HS 08/28/24 08/28/24 History
empagliflozin 10 mg tablet 10 mg PO DAILY 08/28/24 08/28/24 History
(Jardiance)
finerenone 20 mg tablet (Kerendia) 20 mg PO DAILY 08/28/24 08/28/24 History
furosemide 40 mg tablet (Lasix) 40 mg PO DAILY 08/28/24 08/28/24 History
insulin glargine 100 unit/mL (3 40 unit SC QPM 08/28/24 08/28/24 History
mL) subcutaneous pen (Lantus
Solostar U-100 Insulin)
insulin lispro-aabc 100 unit/mL 12 sliding scale dose SC AC 08/28/24 08/28/24 History
subcutaneous pen (Lyumjev KwikPen
U-100 Insulin)
metoprolol succinate 50 mg 100 mg PO DAILY 08/28/24 08/28/24 History
tablet,extended release 24 hr
omega-3 acid ethyl esters 1 gram 2 g PO BID 08/28/24 08/28/24 History
capsule
repaglinide 2 mg tablet 4 mg PO TID 08/28/24 08/28/24 History
rosuvastatin 40 mg tablet (Crestor) 40 mg PO DAILY 08/28/24 08/28/24 History
tamsulosin 0.4 mg capsule (Flomax) 0.4 mg PO DAILY 08/28/24 08/28/24 History
tirzepatide 5 mg/0.5 mL 5 mg SC MO 08/28/24 08/28/24 History
subcutaneous pen injector
(Mounjaro)
triamterene 37.5 1 cap PO DAILY 08/28/24 08/28/24 History
mg-hydrochlorothiazide 25 mg
capsule
Review of Systems
-
Respiratory: Reports SOB and LOZA
Cardiac: Reports Chest Pain (pressure with exertion) and Other (bradycardia noted by patient during CP episodes, recent decreased exercise tolerance)
Physical Exam
Vital Signs
Temp 98.5 F 08/28/24 15:50
Temp route: Oral 08/28/24 15:50
Pulse 94 08/28/24 18:15
Rhythm: Normal sinus rhythm 08/28/24 16:10
Resp Rate 20 08/28/24 15:50
Blood pressure 132/93 08/28/24 18:00
Blood pressure extremity used: Left upper arm 08/28/24 15:50
Position: Lying 08/28/24 15:50
MAP (cuff-Tere Monitor) 103 08/28/24 18:00
SaO2 97 08/28/24 16:10
Oxygen Mode of Delivery Room air 08/28/24 16:10
Can the patient verbally communicate their pain? Yes 08/28/24 16:27
Actual Weight 112 kg 08/28/24 10:39
Body Mass Index (BMI) 31.7 08/28/24 10:39
Labs
08/28/24 10:38
08/28/24 10:38
APTT 27.7 Sec (23.4-35.0) 08/28/24 10:43
Troponin I 1.340 ng/ml H* 08/28/24 10:38
Bww-L-Obtdpvoskgl Pept 2340 pg/ml 08/28/24 10:38
Arterial Blood Gases
pH 7.38 (7.35-7.45) 08/28/24 12:40
pCO2 30 mmHg (35-48) L 08/28/24 12:40
pO2 74 mmHg (83-108) L 08/28/24 12:40
HCO3 17.7 mmol/L (21-28) L 08/28/24 12:40
Base Excess -6.1 mmol/L 08/28/24 12:40
ABG O2 Sat (Measured) 95.3 % (94-98) 08/28/24 12:40
O2 Delivery Level Not Reportable 08/28/24 12:40
Exam
General: Well Developed and Well Nourished
HEENT: Normocephalic
Respiratory: Clear and Other (unlabored, able to speak in full sentences)
Cardiac: Regular Rhythm
GI: Soft, Non Tender, Non Distended and Other (obese abdomen)
Rectal: Deferred by Provider
Skin: Warm and Dry
Neuro: Awake, Alert, Oriented, AO x 3, No Motor Deficits and Nonfocal/Grossly Intact
Psych: Calm
Assessment / Plan
-
68 yr pleasant male who presented with NSTEMI complicated by acute hypoxic respiratory failure requiring temporary BIPAP 2/2 acute diastolic HF (LVEDP 32) who is now known to have MVCAD as was noted on cardiac catheterization today. He is s/p POBA
of a hazy 95% distal RCA stenosis with CADENCE II flow into the RPDA with 3.0 x 20 mm semicompliant balloon at 16 dain with residual 40 to 50% stenosis and CADENCE-3 flow into the distal vessel along which resulted in symptom improvement and stabilization
of the respiratory status 08/28/24. cath findings: 95% distal RCA, 80% mid LAD, 100% ostial Cx with faint collaterals
CT surgery was consulted for CABG vs staged PCI evaluation
Plan:
continue daily baby aspirin, IV unfractionated heparin, high intensity statin as per cardiology
obtain TTE, along with standard CABG workup studies
Likely would benefit from CABG, though final recommendations pending completion of workup
Data Reviewed
-
EKG: Tracing Personally Visualized and interpreted
Feltmaker: Report Reviewed by me
--- NOTE | 2024-08-28 19:18 | PTCARENOTE ---
Pt with NSTEMI received post cardiac cath done via right radial artery. Pt denied any discomfort, diuresing well after IV lasix, 99% on room air. Telemetry shows sinus rhythm. Echo done at bedside. Radial band removed as ordered without problem. Pt
OOB without problem. Will start IV heparin infusion @21:00. Pt states he will report any symptoms.
[2024-08-28] MEDS: HEPARIN 25000 UNITS/250 ML IV (21:04)
--- NOTE | 2024-08-28 22:18 | PTCARENOTE ---
Assumed care of the pt @ 1900. Pt is AAOX3 sitting up in chair. SR/ST on the monitor. Denies sob ambulating in room. RT radial cath site dressing c/d/i. Heparin gtt restarted @ 2100 @ previous rate 1500 units/HR. Call harmon within reach.
[2024-08-28] MEDS: BUSPAR 15 MG PO (22:34)
[2024-08-28 22:39] LABS: Glucose - Point of Care 103 mg/dl (70-99)
[2024-08-28] MEDS: PRANDIN PO (22:39)
[2024-08-29] VITALS (8 sets, daily range): BP systolic 108–124; BP diastolic 72–86; BMI 30.8
[2024-08-29 03:36] LABS: Hemoglobin 13.7 g/dL (13.0-18.0); Mean Corp Hgb Conc. 33.4 g/dL (33.0-37.0); Mean Corpuscular Hgb 27.6 pg (27.0-31.0); Mean Corpuscular Volume 82.7 fL (80.0-94.0); Mean Platelet Volume 12.7 fL (7.4-10.4); Platelet Count 196 10^3/uL (130-400); Red Blood Cell Count 4.96 10^6/uL (4.70-6.10); Red Cell Dist. Width 13.9 % (11.5-14.5); White Blood Cell Count 12.1 10^3/uL (4.8-10.8)
[2024-08-29 03:53] LABS: Blood Urea Nitrogen 32 mg/dl (9-20); Calcium 9.2 mg/dl (8.4-10.2); Carbon Dioxide 24 mmol/L (22-30); Chloride 108 mmol/L (98-107); Estimated Creatinine Clearance 59 ml/min; Glucose 122 mg/dl (70-99); HDL Cholesterol 44 mg/dl; LDL Cholesterol, Calculated 62 mg/dl; Magnesium 1.9 mg/dl (1.6-2.3); Potassium 3.9 mmol/L (3.5-5.1); Sodium 142 mmol/L (135-145); Total Cholesterol 146 mg/dl (50-199); Triglyceride 204 mg/dl (10-149); Very Low Density Lipoprotein 40 mg/dl (0-30); eGFR 46.93
[2024-08-29 03:55] LABS: APTT 63.5 Sec (23.4-35.0)
[2024-08-29] MEDS: TOPROL XL 100 MG PO (07:48)
[2024-08-29] MEDS: ASPIR LOW (ENTERIC COATED) 81 MG PO (07:48)
[2024-08-29] MEDS: PRANDIN 4 MG PO ×3 (07:48→17:05)
[2024-08-29] MEDS: CRESTOR 40 MG PO (07:48)
[2024-08-29] MEDS: BUSPAR 7.5 MG PO (07:49)
[2024-08-29] MEDS: DYAZIDE 1 CAPSULE PO (07:49)
[2024-08-29] MEDS: FLOMAX 0.4 MG PO (07:50)
[2024-08-29 07:55] LABS: Glucose - Point of Care 157 mg/dl (70-99)
--- NOTE | 2024-08-29 08:22 | W.PN.CARDCBS ---
Addendum entered and electronically signed by Ramana Arteaga MD 08/29/24 11:56:
I saw and examined the patient.
The Block Hacker's note was reviewed and I agree with the note.
Comment:
GEN: No distress, awake, Ox3
HEENT: supple, anicteric, mmm
LUNGS: CTA, no wheezes/rales
CV: Reg, S1/S2, 1/6 syst LSB, no gallop
ABD: soft, BS+, NT/ND
EXT: No edema
NEURO: Gross non-focal
SKIN: No rash
Plan:
Case reviewed. Echo with EF of 30% with moderate MR and mild to moderate aortic stenosis. Will review with CT surgery regarding plan for valves.
Cath results with severe multivessel coronary artery disease status post balloon angioplasty of distal RCA.
Continue aspirin and IV heparin. Continue Toprol. Creatinine at 1.6. Hold on ELLY inhibitor for now.
Peak troponin improving and down to 3.7.
Continue Crestor 40 mg daily.
Would switch Dyazide to Lasix. Will likely start tomorrow in a.m. if Creat is stable.
Original Note:
Today's Communication / Plan
-
CT surgery consult
Cre improving and eventually start ELLY (previously on ramipril, but Retail Loss Prevention Specialist changed to lisinopril 08/12/24) and finerenone
EF down to 30%, Troponin trending
Mod MR and mild to mod
Impression / Plan
-
PCP: Dr. Cornelius Rodriguez
Card: Dr. Oakes
Impression:
Admitted with chest pain and abnormal stress test 08/28/24
NSTEMI, troponin 5.1 and trending
CAD
s/p 2.5 mm BOB to OM-1 at [facility] 04/29/03
s/p cath with patent previously placed OM-1 stent and then 2.5 mm Taxus to distal LAD and 3.5 mm Taxus to distal RCA 01/19/06
s/p cath with POBA of hazy 95% distal RCA stenosis, residual 75 to 80% stenosis in the mid LAD and 100% occlusion at the ostium of the circumflex by cardiac cath 08/28/2024
ICM EF 30% by echo 08/28/2024
Mild to mod with peak/mean 20/12 mmHg and possible fusion of the noncoronary and left coronary cusps by echo 08/28/2024
Moderate central MR
HTN
LAFB
Hyperlipidemia
DM 2
CKD 3a, baseline Cre 1.5
h/o elevated ANCA titer without evidence of active ANCA vasculitis
Echo 06/23/2023: EF 55 to 60%, normal RV size and function, mild MR, calcified aortic valve with restricted leaflet motion and possible fusion of the noncoronary and left coronary cusps, mild with peak/mean 22/13 mmHg
ECHO 08/28/24: EF 30%, hypokinesis anterolateral, inferior and inferolateral smith, stage II diastolic dysfunction, mild MS peak/mean 15/6 mmHg, moderate central MR, possible fusion between noncoronary and left coronary cusps, mild to moderate with
peak/mean 20/12 mmHg, AMANDA 1.5 cm sq
Plan:
-Pain free on Heparin gtt, renewed by me 08/29/24. Hgb 13.7 and Plt 196 on labs reviewed by me 08/29/24
-Continue aspirin 81 mg daily
-Troponin up to 5.1 on 08/29/24 and next Troponin ordered for 1000 by sc, will trend to peak
-EF down to 30% by echo with hypokinesis anterolateral, inferior and inferolateral smith as new WMAs.
-Cardiac cath outlined above. Patient had POBA of a hazy 95% distal RCA lesion on 08/28/2024, but has residual disease. There is also evidence of moderate MR and mild to moderate AAS with possible effusion between the noncoronary and left coronary
cusps. CT surgery has been consulted
-Outpatient dose of Toprol XL 100 mg daily has been continued
-Outpatient med list shows ramipril 10 mg daily, but when he last saw his home improvement advisor on 08/12/2024 they had made a decision to stop ramipril and instead start lisinopril 40 mg daily. Regardless ELLY is on hold due to elevated Cre above baseline
-Outpatient dose of triamterene/HCTZ 37.5/25 mg daily is on hold due to elevated Cre above baseline
-Outpatient dose of finerenone 20 mg daily is on hold due to elevated Cre above baseline
-LDL 62 and outpatient dose of Crestor 40 mg daily has been continued
-Patient with known DM 2 and the HgbA1c is 7%. Outpatient dose of Prandin 4 mg TID is on hold. Outpatient dose of Jardiance 10 mg daily is also on hold, but will eventually restart when Cre comes back to baseline.
-Patient with known CKD 3a and baseline Cre of 1.5. Cre in the ER was 1.7 on 08/28/24 and improved a bit to 1.6 on 08/29/2024.
-Nephrology office note from 08/12/2024 reviewed by me, patient has a history of an elevated ANCA level, but not felt to be concerning [place] and there was no evidence of ANCA vasculitis so biopsy was deferred. The plan was to only pursue biopsy if
there was an increase in the ANCA titer level, worsening renal function or if there was severe proteinuria.
HPI: Patient came to the ER today with chest pain while attempting a stress test at the [facility] and cardiology has been asked to see the patient in the ER. Patient was seen in the office on 08/15/2024 with complaints of CP and LOZA. Patient has a
history of CAD as outlined above including OM-1 PCI at [facility] in 2002. Last cath was in 2005 and at that time the OM-1 stent was patent but there was new distal LAD and distal RCA disease both of which were treated with Taxus BOB. Patient takes
aspirin 81 mg daily as an outpatient, but missed the dose today while he was NPO for stress test. Patient attempted exercise nuclear stress test at the [facility] and at the end of stage I and the beginning of stage II he has started with increased CP and
ECG showed new 3-1 AV block. Exercise was stopped before patient reached 85% of MPHR. Chest pain was waxing and waning. Patient completed second set of nuclear images and final report is pending. Patient had ongoing pain and was referred to the
ER where initial troponin was elevated at 1.34. When I saw the patient he continued with a 5 out of 10 CP and was in the process of receiving NTG gtt, aspirin chewable and heparin gtt.
Progress Note - [employer]
Subjective
Date of Service: August 29, 2024
No CP with ambulating in his room
Objective
Labs:
08/29/24 03:12
08/29/24 03:12
Labs
Hgb 13.7 g/dL (13.0-18.0) 08/29/24 03:12
Hct 41.0 % (39.0-52.0) 08/29/24 03:12
Plt Count 196 10^3/uL (130-400) 08/29/24 03:12
APTT 63.5 Sec (23.4-35.0) H 08/29/24 03:12
Sodium 142 mmol/L (135-145) 08/29/24 03:12
Potassium 3.9 mmol/L (3.5-5.1) 08/29/24 03:12
BUN 32 mg/dl (9-20) H 08/29/24 03:12
Creatinine 1.6 mg/dL (0.7-1.3) H 08/29/24 03:12
Glucose 122 mg/dl (70-99) H 08/29/24 03:12
Troponins
08/28/24 08/28/24 08/29/24
10:38 20:57 03:12
Troponin I 1.340 H* 4.730 H* 5.110 H*
Vital Signs and I&O:
Vital Signs
Temp Pulse Resp BP Pulse Ox
98.6 F 98 20 120/77 97
08/29/24 07:50 08/29/24 07:49 08/29/24 07:50 08/29/24 07:49 08/29/24 07:50
Vital Signs
Temp Pulse Resp BP Pulse Ox
98.6 F 98 20 120/77 97
08/29/24 07:50 08/29/24 07:49 08/29/24 07:50 08/29/24 07:49 08/29/24 07:50
Intake & Output
08/27/24 08/28/24 08/29/24 08/30/24
06:59 06:59 06:59 06:59
Intake Total 120 / 120
Output Total 950 / 950
Balance -830 / -830
Physical Exam
Physical Exam
GEN: NAD. AAOx3
HEENT: EOMI, MMM
LUNGS: RA. No wheeze
CV: SR on tele.
ABD: ND
EXT: No edema B/L
NEURO: Gross non-focal
SKIN: No rash
[2024-08-29] MEDS: NOVOLOG FLEXPEN-MODERATE RESISTANCE 1 UNITS SC (09:43)
[2024-08-29 10:34] LABS: APTT 53.6 Sec (23.4-35.0)
[2024-08-29 11:31] LABS: Glucose - Point of Care 93 mg/dl (70-99)
--- NOTE | 2024-08-29 12:13 | CM ---
Chart reviewed. Patient is independent of ADLS, lives with his in a 3 S[address], 4 CLOTILDE, 0 DME. Patient currently works. Preoperative and postoperative instructions and restrictions, along with showering guidelines discussed with the patient and
. Gave patient Cardiac Surgery Book. Patient is agreeable to a home visit by CT Transitional RN. Plan is for the patient to return home with CT Transitional RN. CM to follow
--- NOTE | 2024-08-29 13:20 | W.PN.HOSP.TC ---
Today's Communication/Plan
-
Monitor vital signs see plan
CT surgery evaluation ongoing
Continue IV heparin
Continue with insulin
Hold Dyazide
Continue metoprolol
Assessment / Plan
Assessment / Plan
General: Well Developed, Well Nourished and No Apparent Distress
HEENT: NormoCephalic, Moist mucous membranes and Atraumatic
Respiratory: Clear
Cardiac: S1/S2 and Regular Rhythm; No Murmur or Rub
GI: Soft, Non Tender, Non Distended and Normal Bowel Sounds
Musculoskeletal: No Edema
Skin: No Rash
Neuro: AO x 3 and Nonfocal/grossly intact
Psych: Calm
NSTEMI
-trop noted
s/p cath with POBA of hazy 95% distal RCA stenosis, residual 75 to 80% stenosis in the mid LAD and 100% occlusion at the ostium of the circumflex by cardiac cath 08/28/[address] surgery evaluation ongoing
Continue with heparin drip
Aspirin
-ECHO 08/28 with EF 30%, hypokinesis, stage II diastolic dysfunction, valvular disease
Continue metoprolol
Ischemic cardiomyopathy
Echo with EF 30%
Mild to moderate AAS
Monitor
History of CKD stage IIIa
Baseline creatinine 1.5; cr 1.6 today. monitor
Continue to monitor creatinine
History of elevated ANCA titer without evidence of active ANCA vasculitis
# Anxiety
-BuSpar continued
# Type 2 diabetes
A1c 7
- Repaglinide continued
-sliding scale
- CHO diet
- Lantus continue
# BPH
- Flomax continued
# Hypertension
-Metoprolol, triamterene-HCTZ continued
# DVT prophylaxis
-on heparin drip
# CODE STATUS
-Full code
I spent a total of 52 minutes with the patient or on the floor. More than 50% of this time involved counseling and coordination of care.
Anticipated Discharge: > 48 hours
Subjective/Interval History
-
Date of Service: August 29, 2024
Denies pain
Objective Data
-
Labs:
Laboratory Results
08/29/24 08/29/24 08/29/24
03:12 10:12 17:00
WBC 12.1 H
Hgb 13.7
Hct 41.0
Plt Count 196
APTT 63.5 H 53.6 H Pending
Sodium 142
Potassium 3.9
Chloride 108 H
Carbon Dioxide 24
BUN 32 H
Creatinine 1.6 H
Glucose 122 H
Calcium 9.2
Vital Signs:
Vital Signs
Temp Pulse Resp BP Pulse Ox
97.9 F 98 20 120/77 100
08/29/24 11:13 08/29/24 07:49 08/29/24 11:13 08/29/24 07:49 08/29/24 11:13
I&O
08/28/24 08/29/24 08/30/24
06:59 06:59 06:59
Intake Total 120 / 120
Output Total 950 / 950
Balance -830 / -830
[2024-08-29] MEDS: NOVOLOG FLEXPEN-MODERATE RESISTANCE SC ×2 (13:35→17:07)
[2024-08-29] MEDS: HEPARIN 25000 UNITS/250 ML IV (13:36)
[2024-08-29 16:48] LABS: Glucose - Point of Care 98 mg/dl (70-99)
[2024-08-29] MEDS: LANTUS 0.4 UNITS SC (17:05)
--- NOTE | 2024-08-29 18:00 | PTCARENOTE ---
Pt received this am with no c/o of chest pain or sob. Heparin infusing as ordered. OOB ad yecenia in the room and the hallway. No c/o offered.
[2024-08-29 18:12] LABS: APTT 92.8 Sec (23.4-35.0)
[2024-08-29 18:45] LABS: Hepatitis C Antibody Negative (Negative)
[2024-08-29] MEDS: BUSPAR 15 MG PO (21:05)
[2024-08-29 22:09] LABS: Glucose - Point of Care 136 mg/dl (70-99)
[2024-08-30] VITALS (8 sets, daily range): BP systolic 104–139; BP diastolic 59–80; BMI 30.9
--- NOTE | 2024-08-30 00:23 | PTCARENOTE ---
Assumed care of the pt @ 1900. Pt is AAOX3 sitting in the chair. SR on the monitor denies cp Heparin gtt infusing @ 1900 units. Call harmon with reach.
[2024-08-30 00:37] LABS: APTT 116.1 Sec (23.4-35.0)
[2024-08-30 06:42] LABS: % Basophils 0.9 % (0-2); % Eosinophils 2.6 % (0-6); % Immature Granulocytes 0.3 % (0-0.5); % Lymphocytes 25.8 % (20.5-51.1); % Monocytes 9.9 % (1.7-9.3); % Neutrophils 60.5 % (42.2-75.2); Absolute Basophils 0.1 10^3/uL (0-0.2); Absolute Eosinophils 0.3 10^3/uL (0-0.7); Absolute Lymphocytes 2.7 10^3/uL (1.2-3.4); Absolute Monocytes 1.1 10^3/uL (0.1-0.6); Absolute Neutrophils 6.4 10^3/uL (1.4-6.5); Hematocrit 41.7 % (39.0-52.0); Hemoglobin 13.9 g/dL (13.0-18.0); Mean Corp Hgb Conc. 33.3 g/dL (33.0-37.0); Mean Corpuscular Hgb 28.3 pg (27.0-31.0); Mean Corpuscular Volume 84.9 fL (80.0-94.0); Mean Platelet Volume 12.9 fL (7.4-10.4); Nucleated Red Blood Cells % 0 % (-); Platelet Count 195 10^3/uL (130-400); Red Blood Cell Count 4.91 10^6/uL (4.70-6.10); Red Cell Dist. Width 13.8 % (11.5-14.5); White Blood Cell Count 10.6 10^3/uL (4.8-10.8)
[2024-08-30 06:55] LABS: ALT (SGPT) 21 U/L (0-50); AST (SGOT) 28 U/L (17-59); Alkaline Phosphatase 59 U/L (38-126); Blood Urea Nitrogen 33 mg/dl (9-20); Calcium 9.6 mg/dl (8.4-10.2); Carbon Dioxide 28 mmol/L (22-30); Chloride 106 mmol/L (98-107); Direct Bilirubin 0.2 mg/dl (0.0-0.4); Estimated Creatinine Clearance 59 ml/min; Glucose 132 mg/dl (70-99); Magnesium 2.1 mg/dl (1.6-2.3); Sodium 142 mmol/L (135-145); Total Bilirubin 0.8 mg/dl (0.2-1.3); Total Protein 6.5 g/dl (6.3-8.2); eGFR 46.93
[2024-08-30 07:00] LABS: Urine Albumin 1+ (Neg - Trace); Urine Bilirubin Negative (Negative); Urine Character Clear (Clear); Urine Color Yellow; Urine Glucose 4+ (Negative); Urine Ketone Negative (Negative); Urine Leukocyte Negative (Negative); Urine Nitrite Negative (Negative); Urine Occult Blood Negative (Negative); Urine Urobilinogen Negative (Neg - 1+)
[2024-08-30 07:01] LABS: APTT 117.7 Sec (23.4-35.0)
[2024-08-30 07:15] LABS: INR 1.05; PT 14.2 Sec (11.4-14.6)
[2024-08-30 07:18] LABS: APTT 121.6 Sec (23.4-35.0)
[2024-08-30 07:31] LABS: Urine Bacteria Few (Negative); Urine Red Blood Cell 0-2 /HPF (0-2); Urine White Cell 0-2 /HPF (0-5)
[2024-08-30 08:25] LABS: Glucose - Point of Care 106 mg/dl (70-99)
--- NOTE | 2024-08-30 08:34 | W.PN.CARDCBS ---
Addendum entered and electronically signed by Ramana Arteaga MD 08/30/24 09:35:
I saw and examined the patient.
The Toaster Element Repairer's note was reviewed and I agree with the note.
Comment:
GEN: No distress, awake, Ox3
HEENT: supple, anicteric, mmm
LUNGS: CTA, no wheezes/rales
CV: Reg, S1/S2, 2/6 syst LSB, no gallop
ABD: soft, BS+, NT/ND
EXT: No edema
NEURO: Gross non-focal
SKIN: No rash
Plan:
Overall doing well. Plan is likely for CABG plus AVR plus mitral valve surgery.
Continue Toprol, aspirin and heparin.
Creatinine overall stable at 1.6. Continue to hold ELLY, Dyazide, Jardiance, and finerenone.
LVEDP during cath was 32. If creatinine remains stable in a.m. would start Lasix.
Original Note:
Today's Communication / Plan
-
Continue CT surgery evaluation
Continue heparin, aspirin
Continue Toprol. ELLY, dyazide, jardiance, and finerenone on hold.
Impression / Plan
-
PCP: Dr. Cornelius Rodriguez
Card: Dr. Jonas
Impression:
Admitted with chest pain and abnormal stress test 08/28/24
NSTEMI, troponin 5.1 and trending
CAD
s/p 2.5 mm BOB to OM-1 at [facility] [place] [place] 04/29/03
s/p cath with patent previously placed OM-1 stent and then 2.5 mm Taxus to distal LAD and 3.5 mm Taxus to distal RCA 01/19/06
s/p cath with POBA of hazy 95% distal RCA stenosis, residual 75 to 80% stenosis in the mid LAD and 100% occlusion at the ostium of the circumflex by cardiac cath 08/28/2024
ICM EF 30% by echo 08/28/2024
Mild to mod with peak/mean 20/12 mmHg and possible fusion of the noncoronary and left coronary cusps by echo 08/28/2024
Moderate central MR
HTN
LAFB
Hyperlipidemia
DM 2
CKD 3a, baseline Cre 1.5
h/o elevated ANCA titer without evidence of active ANCA vasculitis
Echo 06/23/2023: EF 55 to 60%, normal RV size and function, mild MR, calcified aortic valve with restricted leaflet motion and possible fusion of the noncoronary and left coronary cusps, mild with peak/mean 22/13 mmHg
ECHO 08/28/2024: EF 30%, hypokinesis anterolateral, inferior and inferolateral smith, stage II diastolic dysfunction, mild MS peak/mean 15/6 mmHg, moderate central MR, possible fusion between noncoronary and left coronary cusps, mild to moderate
with peak/mean 20/12 mmHg, AMANDA 1.5 cm sq
Plan:
-Presented with chest pain and abnormal stress test 08/28. Trop peaked at 5.1. C 08/28 noted MV CAD as outlined above.
-EF down to 30% by echo 08/28 with hypokinesis anterolateral, inferior and inferolateral smith as new WMAs.
-Also noted to have moderate MR and mild to moderate w/ possible fusion between noncoronary and left coronary cusps.
-CT surgery evaluation ongoing.
-Continue heparin gtt, aspirin 81mg daily.
-Continues on Toprol for medical therapy. OP ELLY, Dyazide, and finerenone on hold due to creat above baseline.
-May eventually need diuresis, however still feels well w/ no SOB or edema. Weight
-LDL 62 and outpatient dose of Crestor 40 mg daily has been continued
-Known DM2, HgbA1c 7%. Jardiance on hold. Eventually resume.
HPI: Patient came to the ER today with chest pain while attempting a stress test at the [facility] and cardiology has been asked to see the patient in the ER. Patient was seen in the office on 08/15/2024 with complaints of CP and LOZA. Patient has a
history of CAD as outlined above including OM-1 PCI at [facility] in 2002. Last cath was in 2005 and at that time the OM-1 stent was patent but there was new distal LAD and distal RCA disease both of which were treated with Taxus BOB. Patient takes
aspirin 81 mg daily as an outpatient, but missed the dose today while he was NPO for stress test. Patient attempted exercise nuclear stress test at the [facility] and at the end of stage I and the beginning of stage II he has started with increased CP and
ECG showed new 3-1 AV block. Exercise was stopped before patient reached 85% of MPHR. Chest pain was waxing and waning. Patient completed second set of nuclear images and final report is pending. Patient had ongoing pain and was referred to the
ER where initial troponin was elevated at 1.34. When I saw the patient he continued with a 5 out of 10 CP and was in the process of receiving NTG gtt, aspirin chewable and heparin gtt.
Progress Note - Bulk Sealer
Subjective
Date of Service: August 30, 2024
Feeling well. No current complaints.
Objective
Labs:
08/30/24 06:26
08/30/24 06:26
Labs
Hgb 13.9 g/dL (13.0-18.0) 08/30/24 06:26
Hct 41.7 % (39.0-52.0) 08/30/24 06:26
Plt Count 195 10^3/uL (130-400) 08/30/24 06:26
PT 14.2 Sec (11.4-14.6) 08/30/24 06:26
INR 1.05 08/30/24 06:26
APTT 117.7 Sec (23.4-35.0) H 08/30/24 06:26
APTT 121.6 Sec (23.4-35.0) H 08/30/24 06:26
Sodium 142 mmol/L (135-145) 08/30/24 06:26
Potassium 4.0 mmol/L (3.5-5.1) 08/30/24 06:26
BUN 33 mg/dl (9-20) H 08/30/24 06:26
Creatinine 1.6 mg/dL (0.7-1.3) H 08/30/24 06:26
Glucose 132 mg/dl (70-99) H 08/30/24 06:26
Troponins
08/28/24 08/28/24 08/29/24
10:38 20:57 03:12
Troponin I 1.340 H* 4.730 H* 5.110 H*
08/29/24
10:12
Troponin I 3.780 H* D
Vital Signs and I&O:
Vital Signs
Temp Pulse Resp BP Pulse Ox
97.9 F 74 20 113/59 99
08/30/24 07:16 08/30/24 03:30 08/30/24 07:16 08/30/24 02:12 08/30/24 07:16
Vital Signs
Temp Pulse Resp BP Pulse Ox
97.9 F 74 20 113/59 99
08/30/24 07:16 08/30/24 03:30 08/30/24 07:16 08/30/24 02:12 08/30/24 07:16
Intake & Output
08/28/24 08/29/24 08/30/24 08/31/24
06:59 06:59 06:59 06:59
Intake Total 120 / 120 120 / 120
Output Total 950 / 950
Balance -830 / -830 120 / 120
Physical Exam
Physical Exam
GEN: No distress, awake, alert, oriented x3
HEENT: supple, anicteric, mmm
LUNGS: CTA b/l, no wheezes/rales
CV: Reg, S1/S2, 1/6 syst murmur
EXT: No clubbing, cyanosis, or edema
NEURO: Gross non-focal
SKIN: Warm, dry, no rash
[2024-08-30] MEDS: NOVOLOG FLEXPEN-MODERATE RESISTANCE SC ×3 (09:15→17:11)
[2024-08-30] MEDS: FLOMAX 0.4 MG PO (09:20)
[2024-08-30] MEDS: ASPIR LOW (ENTERIC COATED) 81 MG PO (09:20)
[2024-08-30] MEDS: BUSPAR 7.5 MG PO (09:20)
[2024-08-30] MEDS: CRESTOR 40 MG PO (09:20)
[2024-08-30] MEDS: PRANDIN 4 MG PO ×3 (09:24→17:12)
[2024-08-30] MEDS: TOPROL XL 100 MG PO (09:29)
--- NOTE | 2024-08-30 10:32 | CM ---
Chart reviewed. Patient is independent of ADLS, working, lives with his in a 3 [address], 4 CLOTILDE, 0 DME. Patient waiting on timing for CABG. Plan is for the patient to return home. CM to follow
[2024-08-30 11:58] LABS: Glucose - Point of Care 107 mg/dl (70-99)
[2024-08-30 14:38] LABS: APTT 89.1 Sec (23.4-35.0)
--- NOTE | 2024-08-30 14:53 | W.PN.HOSP.TC ---
Today's Communication/Plan
-
Monitor vital signs see plan
Continue metoprolol
Continue with IV heparin
CT surgery evaluation ongoing
Continue with insulin
Monitor renal function
Assessment / Plan
Assessment / Plan
General: Well Developed, Well Nourished and No Apparent Distress
HEENT: NormoCephalic, Moist mucous membranes and Atraumatic
Respiratory: Clear
Cardiac: S1/S2 and Regular Rhythm; No Murmur or Rub
GI: Soft, Non Tender, Non Distended and Normal Bowel Sounds
Musculoskeletal: No Edema
Skin: No Rash
Neuro: AO x 3 and Nonfocal/grossly intact
Psych: Calm
NSTEMI
-trop noted
s/p cath with POBA of hazy 95% distal RCA stenosis, residual 75 to 80% stenosis in the mid LAD and 100% occlusion at the ostium of the circumflex by cardiac cath 08/28/2024
CT surgery evaluation ongoing today. Plan for likely CABG plus AVR and mitral valve surgery
Continue with heparin drip
Aspirin
-ECHO 08/28 with EF 30%, hypokinesis, stage II diastolic dysfunction, valvular disease
Continue metoprolol
Ischemic cardiomyopathy
Echo with EF 30%
Mild to moderate AAS
Monitor
History of CKD stage IIIa
Baseline creatinine 1.5; cr 1.6 today. monitor
Continue to monitor creatinine
History of elevated ANCA titer without evidence of active ANCA vasculitis
# Anxiety
-BuSpar continued
# Type 2 diabetes
A1c 7
- Repaglinide continued
-sliding scale
continue lantus
# BPH
- Flomax continued
# Hypertension
-continue Metoprolol, hold triamterene-HCTZ
# DVT prophylaxis
-on heparin drip
# CODE STATUS
-Full code
I spent a total of 51 minutes with the patient or on the floor. More than 50% of this time involved counseling and coordination of care.
Anticipated Discharge: > 48 hours
Subjective/Interval History
-
Date of Service: August 30, 2024
Denies chest pain
Objective Data
-
Labs:
Laboratory Results
08/30/24 08/30/24 08/30/24
06:26 06:26 14:13
WBC 10.6
Hgb 13.9
Hct 41.7
Plt Count 195
PT 14.2
INR 1.05
APTT 121.6 H 117.7 H 89.1 H
Sodium 142
Potassium 4.0
Chloride 106
Carbon Dioxide 28
BUN 33 H
Creatinine 1.6 H
Glucose 132 H
Calcium 9.6
Total Bilirubin 0.8
AST 28
ALT 21
Alkaline Phosphatase 59
Vital Signs:
Vital Signs
Temp Pulse Resp BP Pulse Ox
98.2 F 74 20 113/59 100
08/30/24 11:00 08/30/24 03:30 08/30/24 11:00 08/30/24 02:12 08/30/24 11:00
I&O
08/29/24 08/30/24 08/31/24
06:59 06:59 06:59
Intake Total 120 / 120 120 / 120 180 / 180
Output Total 950 / 950
Balance -830 / -830 120 / 120 180 / 180
[2024-08-30] MEDS: DOBUTREX 500 MG 250 IV (14:58)
--- NOTE | 2024-08-30 16:00 | PTCARENOTE ---
Pt received this am with no c/o of any chest pain or sob. Heparin infusing as ordered. Dobutamine started as ordered. Pt ambulating ad yecenia in the hallway. No c/o offered.
[2024-08-30 17:10] LABS: Glucose - Point of Care 72 mg/dl (70-99)
[2024-08-30] MEDS: LANTUS 0.4 UNITS SC (17:12)
[2024-08-30] MEDS: HEPARIN 25000 UNITS/250 ML IV (17:28)
[2024-08-30] MEDS: MIRALAX 17 GRAMS PO (18:38)
--- NOTE | 2024-08-30 19:36 | W.PN.UPDATE ---
Update Note
Progress Note Update
Ongoing CT surgery work up. Per Dr. Pinto, will start low dose DTX infusion at 2mcg/kg/min and obtain repeat TTE on monday. Please continue to monitor UOP closely and obtian daily weights. continue to trend Cr. tentative surgery date next week.
[2024-08-30 20:53] LABS: APTT 62.1 Sec (23.4-35.0)
[2024-08-30 21:38] LABS: Glucose - Point of Care 106 mg/dl (70-99)
--- NOTE | 2024-08-30 22:09 | PTCARENOTE ---
Patient received at change of shift out of bed to the chair. Dobutamine gtt infusing at 2mcg/kg/min (3.3mL/hr) per order. Heparin gtt infusing at 1700 units/hr. Patient offers no complaints at this time. Oxygen saturation 98-100% on room air. Sinus
rhythm on telemetry. Plan of care discussed with patient. Call harmon within reach. Care ongoing.
[2024-08-30] MEDS: BUSPAR 15 MG PO (22:16)
[2024-08-31] VITALS (7 sets, daily range): BP systolic 109–127; BP diastolic 62–96; BMI 31.0
[2024-08-31 03:31] LABS: % Basophils 0.8 % (0-2); % Eosinophils 2.9 % (0-6); % Immature Granulocytes 0.2 % (0-0.5); % Lymphocytes 25.2 % (20.5-51.1); % Monocytes 9.8 % (1.7-9.3); % Neutrophils 61.1 % (42.2-75.2); Absolute Basophils 0.1 10^3/uL (0-0.2); Absolute Eosinophils 0.3 10^3/uL (0-0.7); Absolute Lymphocytes 2.7 10^3/uL (1.2-3.4); Absolute Neutrophils 6.4 10^3/uL (1.4-6.5); Hematocrit 39.1 % (39.0-52.0); Hemoglobin 13.1 g/dL (13.0-18.0); Mean Corp Hgb Conc. 33.5 g/dL (33.0-37.0); Mean Corpuscular Hgb 28.3 pg (27.0-31.0); Mean Corpuscular Volume 84.4 fL (80.0-94.0); Mean Platelet Volume 12.7 fL (7.4-10.4); Nucleated Red Blood Cells % 0 % (-); Platelet Count 185 10^3/uL (130-400); Red Blood Cell Count 4.63 10^6/uL (4.70-6.10); Red Cell Dist. Width 13.7 % (11.5-14.5); White Blood Cell Count 10.5 10^3/uL (4.8-10.8)
[2024-08-31 03:46] LABS: APTT 117.1 Sec (23.4-35.0)
[2024-08-31 05:11] LABS: Blood Urea Nitrogen 31 mg/dl (9-20); Calcium 8.8 mg/dl (8.4-10.2); Carbon Dioxide 20 mmol/L (22-30); Chloride 110 mmol/L (98-107); Estimated Creatinine Clearance 67 ml/min; Glucose 106 mg/dl (70-99); Potassium 3.8 mmol/L (3.5-5.1); Sodium 141 mmol/L (135-145); eGFR 55.09
[2024-08-31] MEDS: HEPARIN 25000 UNITS/250 ML IV ×2 (05:57→19:52)
[2024-08-31 07:19] LABS: Glucose - Point of Care 113 mg/dl (70-99)
[2024-08-31] MEDS: NOVOLOG FLEXPEN-MODERATE RESISTANCE SC ×3 (07:53→17:40)
--- NOTE | 2024-08-31 07:59 | W.PN.CARDCBS ---
Addendum entered and electronically signed by Theresa Kunz MD 08/31/24 12:07:
I saw and examined the patient.
The Epic Director's note was reviewed and I agree with the note.
Comment: Exam with patient sitting in the chair. Trace plus lower extremity edema. Decreased breath sounds at the bases. Regular rate and rhythm with 3/6 basal systolic murmur. Awake and appropriate.
Multivessel coronary artery disease
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
Aortic valve stenosis
Heart failure with reduced ejection fraction
Renal insufficiency
Diabetes
Plan at this time:
Discussed with CT surgery and would discontinue dobutamine given some degree of mitral stenosis
Keep heart rate around 60 bpm if able. Continue beta-rzo.
Await upcoming CT surgery
Continue guideline directed medical therapy as able for heart failure with reduced ejection fraction pre-/postop. Eventually could consider ELLY inhibitor/ARB/Arni. Eventually resume finerenone.
Patient appears to be holding some fluid. 1 dose of oral Lasix given and follow.
Renal insufficiency noted.
Non-Q wave VT noted. Continue IV heparin. Continue aspirin. Continue statin.
Telemetry reviewed and stable.
Original Note:
Today's Communication / Plan
-
continue dobut
consider for dose of IV lasix today
follow Cr
repeat TTE 09/02
Impression / Plan
-
PCP: Dr. Cornelius Rodriguez
Card: Dr. Jonas
Impression:
Admitted with chest pain and abnormal stress test 08/28/24
NSTEMI, troponin 5.1 and trending
CAD
s/p 2.5 mm BOB to OM-1 at [facility] 04/29/03
s/p cath with patent previously placed OM-1 stent and then 2.5 mm Taxus to distal LAD and 3.5 mm Taxus to distal RCA 01/19/06
s/p cath with POBA of hazy 95% distal RCA stenosis, residual 75 to 80% stenosis in the mid LAD and 100% occlusion at the ostium of the circumflex by cardiac cath 08/28/2024
ICM EF 30% by echo 08/28/2024
Mild to mod with peak/mean 20/12 mmHg and possible fusion of the noncoronary and left coronary cusps by echo 08/28/2024
Moderate central MR
HTN
LAFB
Hyperlipidemia
DM 2
CKD 3a, baseline Cre 1.5
h/o elevated ANCA titer without evidence of active ANCA vasculitis
Echo 06/23/2023: EF 55 to 60%, normal RV size and function, mild MR, calcified aortic valve with restricted leaflet motion and possible fusion of the noncoronary and left coronary cusps, mild with peak/mean 22/13 mmHg
ECHO 08/28/2024: EF 30%, hypokinesis anterolateral, inferior and inferolateral smith, stage II diastolic dysfunction, mild MS peak/mean 15/6 mmHg, moderate central MR, possible fusion between noncoronary and left coronary cusps, mild to moderate
with peak/mean 20/12 mmHg, AMANDA 1.5 cm sq
Plan:
-Presented with chest pain and abnormal stress test 08/28. Trop peaked at 5.1. LHC 08/28 noted MV CAD as outlined above.
-EF down to 30% by echo 08/28 with hypokinesis anterolateral, inferior and inferolateral smith as new WMAs.
-Also noted to have moderate MR and mild to moderate w/ possible fusion between noncoronary and left coronary cusps.
-was started on dobutamine @2. plan for repeat echo Saturday 09/02
-Cr improved to 1.4 on 08/31. LVEDP was 32 08/28. would consider giving dose of IV lasix today
-CT surgery evaluation ongoing, planned for this upcoming week
-Continue heparin gtt, aspirin 81mg daily, toprol, crestor
-OP ELLY, Dyazide, and finerenone on hold due to creat above baseline.
-Known DM2 with HgbA1c 7%. Jardiance on hold. Eventually resume post op
HPI: Patient came to the ER today with chest pain while attempting a stress test at the [facility] and cardiology has been asked to see the patient in the ER. Patient was seen in the office on 08/15/2024 with complaints of CP and LOZA. Patient has a
history of CAD as outlined above including OM-1 PCI at [facility] in 2002. Last cath was in 2005 and at that time the OM-1 stent was patent but there was new distal LAD and distal RCA disease both of which were treated with Taxus BOB. Patient takes
aspirin 81 mg daily as an outpatient, but missed the dose today while he was NPO for stress test. Patient attempted exercise nuclear stress test at the [facility] and at the end of stage I and the beginning of stage II he has started with increased CP and
ECG showed new 3-1 AV block. Exercise was stopped before patient reached 85% of MPHR. Chest pain was waxing and waning. Patient completed second set of nuclear images and final report is pending. Patient had ongoing pain and was referred to the
ER where initial troponin was elevated at 1.34. When I saw the patient he continued with a 5 out of 10 CP and was in the process of receiving NTG gtt, aspirin chewable and heparin gtt.
Progress Note - Terrazzo Mechanic Helper
Subjective
Date of Service: August 31, 2024
no issues overnight
Objective
Labs:
08/31/24 03:18
08/31/24 03:18
Labs
Hgb 13.1 g/dL (13.0-18.0) 08/31/24 03:18
Hct 39.1 % (39.0-52.0) 08/31/24 03:18
Plt Count 185 10^3/uL (130-400) 08/31/24 03:18
PT 14.2 Sec (11.4-14.6) 08/30/24 06:26
INR 1.05 08/30/24 06:26
APTT 117.1 Sec (23.4-35.0) H 08/31/24 03:18
Sodium 141 mmol/L (135-145) 08/31/24 03:18
Potassium 3.8 mmol/L (3.5-5.1) 08/31/24 03:18
BUN 31 mg/dl (9-20) H 08/31/24 03:18
Creatinine 1.4 mg/dL (0.7-1.3) H 08/31/24 03:18
Glucose 106 mg/dl (70-99) H 08/31/24 03:18
Troponins
08/28/24 08/28/24 08/29/24
10:38 20:57 03:12
Troponin I 1.340 H* 4.730 H* 5.110 H*
08/29/24
10:12
Troponin I 3.780 H* D
Vital Signs and I&O:
Vital Signs
Temp Pulse Resp BP Pulse Ox
97.5 F 73 18 127/73 100
08/31/24 07:22 08/31/24 07:14 08/31/24 07:22 08/31/24 07:14 08/31/24 07:22
Vital Signs
Temp Pulse Resp BP Pulse Ox
97.5 F 73 18 127/73 100
08/31/24 07:22 08/31/24 07:14 08/31/24 07:22 08/31/24 07:14 08/31/24 07:22
Intake & Output
08/28/24 08/29/24 08/30/24 08/31/24
07:59 07:59 07:59 07:59
Intake Total 120 / 120 120 / 120 1783.6 / 1783.6
Output Total 950 / 950 575 / 575
Balance -830 / -830 120 / 120 1208.6 / 1208.6
Physical Exam
Physical Exam
GEN: No distress, awake, alert, oriented x3. sitting in chair
HEENT: supple, anicteric, mmm, eomi
LUNGS: Few crackles at LLB, no wheezes
CV: Reg, S1/S2, 2/6 murmur
ABD: soft, BS+, NT/ND
EXT: No cyanosis, clubbing, edema
NEURO: Gross non-focal
SKIN: Warm, pink, dry. No rash
[2024-08-31] MEDS: ASPIR LOW (ENTERIC COATED) 81 MG PO (08:31)
[2024-08-31] MEDS: FLOMAX 0.4 MG PO (08:32)
[2024-08-31] MEDS: PRANDIN 4 MG PO ×3 (08:32→18:10)
[2024-08-31] MEDS: TOPROL XL 100 MG PO (08:32)
[2024-08-31] MEDS: CRESTOR 40 MG PO (08:32)
[2024-08-31] MEDS: BUSPAR 7.5 MG PO (08:33)
--- NOTE | 2024-08-31 11:04 | PTCARENOTE ---
Received patient this morning sitting oob in the chair. Denies any chest pain or sob. IV heparin infusing at 1800 units/hr, IV dobutamine infusing at 2mcg/kg/min. Patient seen by CT surgery and is now scheduled for surgery this Monday. IV
dobutamine discontinued as ordered.
[2024-08-31] MEDS: LASIX 20 MG PO (12:23)
[2024-08-31 12:40] LABS: Glucose - Point of Care 75 mg/dl (70-99)
--- NOTE | 2024-08-31 14:27 | W.PN.HOSP.TC ---
Today's Communication/Plan
-
Monitor vital signs see plan
Continue with IV heparin
Trial of Lasix
Continue insulin
Assessment / Plan
Assessment / Plan
General: Well Developed, Well Nourished and No Apparent Distress
HEENT: NormoCephalic, Moist mucous membranes and Atraumatic
Respiratory: Clear
Cardiac: S1/S2 and Regular Rhythm; No Murmur or Rub
GI: Soft, Non Tender, Non Distended and Normal Bowel Sounds
Musculoskeletal: No Edema
Skin: No Rash
Neuro: AO x 3 and Nonfocal/grossly intact
Psych: Calm
NSTEMI
-trop noted
s/p cath with POBA of hazy 95% distal RCA stenosis, residual 75 to 80% stenosis in the mid LAD and 100% occlusion at the ostium of the circumflex by cardiac cath 08/28/2024
CT surgery evaluation ongoing today. Plan for likely CABG plus AVR and mitral valve surgery
Continue with heparin drip
Aspirin
-ECHO 08/28 with EF 30%, hypokinesis, stage II diastolic dysfunction, valvular disease
Continue metoprolol
Initially was put on low-dose dobutamine however now discontinued given some degree of mitral stenosis. Plan for repeat echo Saturday 09/02
Ischemic cardiomyopathy
Echo with EF 30%
Mild to moderate AAS
Monitor
History of CKD stage IIIa
Baseline creatinine 1.5; cr 1.4 today. monitor
Continue to monitor creatinine
History of elevated ANCA titer without evidence of active ANCA vasculitis
Suspect acute CHF with reduced ejection fraction
1 dose Lasix today monitor
# Anxiety
-BuSpar continued
# Type 2 diabetes
A1c 7
- Repaglinide continued
-sliding scale
continue lantus
# BPH
- Flomax continued
# Hypertension
-continue Metoprolol, hold triamterene-HCTZ
# DVT prophylaxis
-on heparin drip
# CODE STATUS
-Full code
Anticipated Discharge: > 48 hours
Subjective/Interval History
-
Date of Service: August 31, 2024
Denies chest pain
Objective Data
-
Labs:
Laboratory Results
08/31/24 08/31/24 08/31/24
03:18 10:04 16:00
WBC 10.5
Hgb 13.1
Hct 39.1
Plt Count 185
APTT 117.1 H 100.0 H Pending
Sodium 141
Potassium 3.8
Chloride 110 H
Carbon Dioxide 20 L
BUN 31 H
Creatinine 1.4 H
Glucose 106 H
Calcium 8.8
Vital Signs:
Vital Signs
Temp Pulse Resp BP Pulse Ox
97.5 F 69 18 116/96 100
08/31/24 11:24 08/31/24 12:00 08/31/24 11:24 08/31/24 11:26 08/31/24 11:24
I&O
08/30/24 08/31/24 09/01/24
06:59 06:59 06:59
Intake Total 120 / 120 1783.6 / 1783.6 240 / 240
Output Total 575 / 575 150 / 150
Balance 120 / 120 1208.6 / 1208.6 90 / 90
[2024-08-31 16:35] LABS: APTT 93.5 Sec (23.4-35.0)
[2024-08-31 17:33] LABS: Glucose - Point of Care 87 mg/dl (70-99)
[2024-08-31] MEDS: LANTUS 0.4 UNITS SC (18:10)
[2024-08-31] MEDS: BUSPAR 15 MG PO (20:01)
[2024-08-31 23:01] LABS: Glucose - Point of Care 93 mg/dl (70-99)
--- NOTE | 2024-09-01 00:36 | PTCARENOTE ---
Pt. has no complaints CP/discomfort this shift, VSS, NSR on the monitor. Heparin gtt infusing at 1800 units/hr. Pt. independent & ambulatory in room. Pt. currently sleeping.
[2024-09-01 03:43] VITALS: BP 114/73
[2024-09-01 03:45] VITALS: BMI 30.9
[2024-09-01 04:19] LABS: APTT 90.2 Sec (23.4-35.0)
[2024-09-01 04:28] LABS: % Basophils 0.8 % (0-2); % Eosinophils 3.3 % (0-6); % Immature Granulocytes 0.4 % (0-0.5); % Lymphocytes 21.6 % (20.5-51.1); % Neutrophils 64.9 % (42.2-75.2); Absolute Basophils 0.1 10^3/uL (0-0.2); Absolute Eosinophils 0.3 10^3/uL (0-0.7); Absolute Lymphocytes 2.1 10^3/uL (1.2-3.4); Absolute Monocytes 0.9 10^3/uL (0.1-0.6); Absolute Neutrophils 6.3 10^3/uL (1.4-6.5); Hematocrit 39.3 % (39.0-52.0); Hemoglobin 13.1 g/dL (13.0-18.0); Mean Corp Hgb Conc. 33.3 g/dL (33.0-37.0); Mean Corpuscular Hgb 28.2 pg (27.0-31.0); Mean Corpuscular Volume 84.7 fL (80.0-94.0); Mean Platelet Volume 12.9 fL (7.4-10.4); Nucleated Red Blood Cells % 0 % (-); Platelet Count 183 10^3/uL (130-400); Red Blood Cell Count 4.64 10^6/uL (4.70-6.10); Red Cell Dist. Width 13.7 % (11.5-14.5); White Blood Cell Count 9.7 10^3/uL (4.8-10.8)
[2024-09-01 04:30] LABS: Blood Urea Nitrogen 35 mg/dl (9-20); Calcium 9.5 mg/dl (8.4-10.2); Carbon Dioxide 25 mmol/L (22-30); Chloride 107 mmol/L (98-107); Estimated Creatinine Clearance 63 ml/min; Glucose 123 mg/dl (70-99); Potassium 4.2 mmol/L (3.5-5.1); Sodium 140 mmol/L (135-145); eGFR 50.71
[2024-09-01 08:22] VITALS: BP 119/75
[2024-09-01 08:49] LABS: Glucose - Point of Care 93 mg/dl (70-99)
[2024-09-01] MEDS: NOVOLOG FLEXPEN-MODERATE RESISTANCE SC ×3 (08:53→18:19)
[2024-09-01] MEDS: TOPROL XL 100 MG PO (08:54)
[2024-09-01] MEDS: PRANDIN 4 MG PO ×2 (08:54→12:37)
[2024-09-01] MEDS: CRESTOR 40 MG PO (08:54)
[2024-09-01] MEDS: FLOMAX 0.4 MG PO (08:54)
[2024-09-01] MEDS: ASPIR LOW (ENTERIC COATED) 81 MG PO (08:54)
[2024-09-01] MEDS: BUSPAR 7.5 MG PO (08:55)
[2024-09-01] MEDS: FLUSH (NSS) 2 FLUSH IV (08:55)
--- NOTE | 2024-09-01 10:41 | PTCARENOTE ---
Received patient this morning sitting oob in the chair, IV heparin infusing at 1800 units/hr, PTT is therapeutic. Patient offers no complaints, awaiting surgery on Monday.
--- NOTE | 2024-09-01 11:08 | W.PN.CARDCBS ---
Today's Communication / Plan
-
Stable overnight.
Telemetry stable.
CT surgery continues to evaluate for procedure
Impression / Plan
-
PCP: Dr. Cornelius Rodriguez
Card: Dr. Jonas
Impression:
Admitted with chest pain and abnormal stress test 08/28/24
NSTEMI, troponin 5.1 and trending
CAD
s/p 2.5 mm BOB to OM-1 at [facility] 04/29/03
s/p cath with patent previously placed OM-1 stent and then 2.5 mm Taxus to distal LAD and 3.5 mm Taxus to distal RCA 01/19/06
s/p cath with POBA of hazy 95% distal RCA stenosis, residual 75 to 80% stenosis in the mid LAD and 100% occlusion at the ostium of the circumflex by cardiac cath 08/28/2024
ICM EF 30% by echo 08/28/2024
Mild to mod with peak/mean 20/12 mmHg and possible fusion of the noncoronary and left coronary cusps by echo 08/28/2024
Moderate central MR
HTN
LAFB
Hyperlipidemia
DM 2
CKD 3a, baseline Cre 1.5
h/o elevated ANCA titer without evidence of active ANCA vasculitis
Echo 06/23/2023: EF 55 to 60%, normal RV size and function, mild MR, calcified aortic valve with restricted leaflet motion and possible fusion of the noncoronary and left coronary cusps, mild with peak/mean 22/13 mmHg
ECHO 08/28/2024: EF 30%, hypokinesis anterolateral, inferior and inferolateral smith, stage II diastolic dysfunction, mild MS peak/mean 15/6 mmHg, moderate central MR, possible fusion between noncoronary and left coronary cusps, mild to moderate
with peak/mean 20/12 mmHg, AMANDA 1.5 cm sq
Plan:
-He is stable overnight and awaiting CT surgery. No chest pain. Telemetry independently reviewed by me and stable.
-Initial presentation with chest pain and abnormal stress test 08/28. Trop peaked at 5.1. [facility] 08/28 noted MV CAD as outlined above.
-EF down to 30% by echo 08/28/24 with hypokinesis anterolateral, inferior and inferolateral smith as new WMAs.
-Also noted to have moderate MR and mild to moderate w/ possible fusion between noncoronary and left coronary cusps.
-was started on dobutamine @2 briefly and was discontinued given patient does also have some degree of mitral stenosis.
-Per CT surgery plan for repeat echo Saturday 09/02
-CT surgery evaluation ongoing, planned for this upcoming week
-Renal insufficiency with stable creatinine Cr 1.5. LVEDP was 32 08/28/24. Did receive 1 dose of oral Lasix 09/01/24
-Continue heparin gtt, aspirin 81mg daily, toprol, crestor
-OP ELLY, Dyazide, and finerenone on hold due to creat above baseline.
-Known DM2 with HgbA1c 7%. Jardiance on hold. Eventually resume post op
HPI: Patient came to the ER today with chest pain while attempting a stress test at the [facility] and cardiology has been asked to see the patient in the ER. Patient was seen in the office on 08/15/2024 with complaints of CP and LOZA. Patient has a
history of CAD as outlined above including OM-1 PCI at [facility] in 2002. Last cath was in 2005 and at that time the OM-1 stent was patent but there was new distal LAD and distal RCA disease both of which were treated with Taxus BOB. Patient takes
aspirin 81 mg daily as an outpatient, but missed the dose today while he was NPO for stress test. Patient attempted exercise nuclear stress test at the [facility] and at the end of stage I and the beginning of stage II he has started with increased CP and
ECG showed new 3-1 AV block. Exercise was stopped before patient reached 85% of MPHR. Chest pain was waxing and waning. Patient completed second set of nuclear images and final report is pending. Patient had ongoing pain and was referred to the
ER where initial troponin was elevated at 1.34. When I saw the patient he continued with a 5 out of 10 CP and was in the process of receiving NTG gtt, aspirin chewable and heparin gtt.
Progress Note - Health Information Coder
Subjective
Date of Service: September 01, 2024
He denies chest pain, palpitations, dizziness and syncope.
Objective
Labs:
09/01/24 03:51
09/01/24 03:51
Labs
Hgb 13.1 g/dL (13.0-18.0) 09/01/24 03:51
Hct 39.3 % (39.0-52.0) 09/01/24 03:51
Plt Count 183 10^3/uL (130-400) 09/01/24 03:51
PT 14.2 Sec (11.4-14.6) 08/30/24 06:26
INR 1.05 08/30/24 06:26
APTT 90.2 Sec (23.4-35.0) H 09/01/24 03:51
Sodium 140 mmol/L (135-145) 09/01/24 03:51
Potassium 4.2 mmol/L (3.5-5.1) 09/01/24 03:51
BUN 35 mg/dl (9-20) H 09/01/24 03:51
Creatinine 1.5 mg/dL (0.7-1.3) H 09/01/24 03:51
Glucose 123 mg/dl (70-99) H 09/01/24 03:51
Vital Signs and I&O:
Vital Signs
Temp Pulse Resp BP Pulse Ox
97.7 F 72 20 119/75 97
09/01/24 08:24 09/01/24 08:22 09/01/24 08:24 09/01/24 08:22 09/01/24 08:24
Vital Signs
Temp Pulse Resp BP Pulse Ox
97.7 F 72 20 119/75 97
09/01/24 08:24 09/01/24 08:22 09/01/24 08:24 09/01/24 08:22 09/01/24 08:24
Intake & Output
08/30/24 08/31/24 09/01/24 09/02/24
06:59 06:59 06:59 06:59
Intake Total 120 / 120 1783.6 / 1783.6 1176 / 1176 240 / 240
Output Total 575 / 575 1275 / 1275 200 / 200
Balance 120 / 120 1208.6 / 1208.6 -99 / -99 40 / 40
Physical Exam
Physical Exam
General: Well developed, well nourished in NAD.
Heart: Non displaced PMI, RRR, 2/6 basal systolic murmur and 2/6 apical holosystolic murmur
Lungs: Clear to auscultation bilaterally, no wheeze, rhonchi, rubs bilaterally,
Extremities: No clubbing, cyanosis and trace edema bilaterally.
Neuro: Grossly nonfocal, awake, alert and oriented x3.
[2024-09-01] MEDS: HEPARIN 25000 UNITS/250 ML IV (11:12)
[2024-09-01 11:59] VITALS: BP 110/66
[2024-09-01 12:29] LABS: Glucose - Point of Care 96 mg/dl (70-99)
--- NOTE | 2024-09-01 13:12 | W.PN.HOSP.TC ---
Today's Communication/Plan
-
Monitor vital signs see plan
Continue heparin
Echo tomorrow
Cardiology and CT surgery following
Assessment / Plan
Assessment / Plan
General: Well Developed, Well Nourished and No Apparent Distress
HEENT: NormoCephalic, Moist mucous membranes and Atraumatic
Respiratory: Clear
Cardiac: S1/S2 and Regular Rhythm; No Murmur or Rub
GI: Soft, Non Tender, Non Distended
Musculoskeletal: No Edema
Neuro: AO x 3 and Nonfocal/grossly intact
Psych: Calm
NSTEMI
-trop noted
s/p cath with POBA of hazy 95% distal RCA stenosis, residual 75 to 80% stenosis in the mid LAD and 100% occlusion at the ostium of the circumflex by cardiac cath 08/28/2024
CT surgery evaluation ongoing today. Plan for likely CABG plus AVR and mitral valve surgery
Continue with heparin drip
Aspirin
-ECHO 08/28 with EF 30%, hypokinesis, stage II diastolic dysfunction, valvular disease
Continue metoprolol
Initially was put on low-dose dobutamine however now discontinued given some degree of mitral stenosis. Plan for repeat echo Saturday 09/02
Ischemic cardiomyopathy
Echo with EF 30%
Mild to moderate AAS
Monitor
History of CKD stage IIIa
Baseline creatinine 1.5; monitor
Continue to monitor creatinine
History of elevated ANCA titer without evidence of active ANCA vasculitis
Suspect acute CHF with reduced ejection fraction
1 dose Lasix 08/31; monitor
Diuresis per cardiology
# Anxiety
-BuSpar continued
# Type 2 diabetes
A1c 7
- Repaglinide continued
-sliding scale
continue lantus
# BPH
- Flomax continued
# Hypertension
-continue Metoprolol, hold triamterene-HCTZ
# DVT prophylaxis
-on heparin drip
# CODE STATUS
-Full code
Anticipated Discharge: > 48 hours
Subjective/Interval History
-
Date of Service: September 01, 2024
Denies chest pain
Objective Data
-
Labs:
Laboratory Results
09/01/24
03:51
WBC 9.7
Hgb 13.1
Hct 39.3
Plt Count 183
APTT 90.2 H
Sodium 140
Potassium 4.2
Chloride 107
Carbon Dioxide 25
BUN 35 H
Creatinine 1.5 H
Glucose 123 H
Calcium 9.5
Vital Signs:
Vital Signs
Temp Pulse Resp BP Pulse Ox
98.2 F 65 20 110/66 98
09/01/24 11:59 09/01/24 12:00 09/01/24 11:59 09/01/24 11:59 09/01/24 11:59
I&O
08/31/24 09/01/24 09/02/24
06:59 06:59 06:59
Intake Total 1783.6 / 1783.6 1176 / 1176 240 / 240
Output Total 575 / 575 1275 / 1275 200 / 200
Balance 1208.6 / 1208.6 -99 / -99 40 / 40
[2024-09-01 17:07] VITALS: BP 119/72
[2024-09-01 18:16] LABS: Glucose - Point of Care 64 mg/dl (70-99)
[2024-09-01] MEDS: LANTUS SC (18:22)
[2024-09-01] MEDS: PRANDIN PO (18:22)
[2024-09-01 18:27] VITALS: BP 120/77
[2024-09-01 18:38] LABS: Glucose - Point of Care 72 mg/dl (70-99)
--- NOTE | 2024-09-01 19:26 | PTCARENOTE ---
Accu check before dinner was 64, patient was asymptomatic. Give 4oz of OJ per protocol, accu check 15' after 72. Notified Dr. Hawkins, patient was due for prandin at dinner and 40 units of lantus. To hold dinner prandin and he will decrease PM lantus
dose.
[2024-09-01 20:35] LABS: Glucose - Point of Care 133 mg/dl (70-99)
[2024-09-01] MEDS: LANTUS 0.25 UNITS SC (21:12)
[2024-09-01 22:34] VITALS: BP 129/66
[2024-09-01] MEDS: BUSPAR 15 MG PO (22:39)
[2024-09-01 22:40] LABS: Glucose - Point of Care 112 mg/dl (70-99)
--- NOTE | 2024-09-02 00:37 | PTCARENOTE ---
Assumed care of patient at change of shift. Patient ambulating self in room, denies any dizziness. Tele monitor shows SR, HR in the 60-70's. Denies any CP or discomfort. Right radial site BLAST SETTER w/ positive pulse. IV Heparin gtt infusing at 18ml/hr.
Patient aware of POC, call harmon within reach.
--- NOTE | 2024-09-02 01:06 | W.PN.CT ---
Today's Communication / Plan
-
Plan:
-Cont. current medical management/optimization per primary team
-Nurse reports LUE IV site infiltrate, swollen and tender to palpation on my assessment, no cord felt. Cont. heat therapy and elevation, will monitor
-Cont. current meds (ASA, Heparin gtt, Toprol XL)
-Avoid ELLY-I/ARBs/CCB at least [address] Surgery
-Avoid SGLT2 inhibitors (Jardiance) at least [address]
-Ongoing preop evaluation/optimization
-For echo today 09/02/24, made NPO after midnight
-Dr. Pinto to see after echo
Assessment / Plan
-
Assessment:
-Admitted with chest pain and abnormal stress test 08/28/24
-Multivessel CAD S/p POBA distal 95% hazy distal RCA, 08/28/24
-NSTEMI (peak trop 5.1)
-Hx CAD S/P BOB to OM-1 at [facility] 04/29/03
-LVEF 30% with hypokinesis of anterolateral, inferior and inferolateral smith, per TTE 08/28/24
-Moderate MR
-Mild MS
-MIld to moderate
-HTN
-LAFB
-Hyperlipidemia
-T2DM (hgb A1C 7.0, on insulin)
-Class 1 obesity (BMI 30.9)
-CKD 3a (baseline 1.4-1.7)
-BPH (on flomax)
-Anxiety disorder
-Hx elevated ANCA titer without evidence of active ANCA vasculitis
-S/p Cataracts
Discussed patient care with: Cardiology, Nursing, Respiratory Therapy, Pharmacy and Care Team
Subjective
-
Date of Service: September 02, 2024
No issues overnight. Denies CP/SOB
Objective Data
-
PT 14.2 Sec (11.4-14.6) 08/30/24 06:26
INR 1.05 08/30/24 06:26
APTT 90.2 Sec (23.4-35.0) H 09/01/24 03:51
Vital Signs
Vital Signs
Temp Pulse Resp BP Pulse Ox
97.7 F 69 18 129/66 100
09/01/24 22:34 09/01/24 22:34 09/01/24 22:34 09/01/24 22:34 09/01/24 22:34
CT Intake/Output/Weight
09/01/24 09/01/24 09/02/24
06:59 18:59 06:59
Intake Total 696 / 1176 240 / 240
Output Total 875 / 1275 400 / 675 275 / 675
Balance -179 / -99 -160 / -435 -275 / -435
SaO2: 100 (RA)
Physical Exam
-
General: Awake, Oriented and AOx3
Cardiovascular: Regular rate & rhythm
Respiratory: Clear
Incision: Clean, Dry, Intact and Dressing Intact
Extremities: No Edema
Data Reviewed
-
Lab Results: Results Reviewed
Medications: Active Meds Reviewed
Chest X-Ray: Report Reviewed and Image Reviewed
ECG: Report Reviewed and Image Reviewed
[2024-09-02] MEDS: HEPARIN 25000 UNITS/250 ML IV ×2 (01:46→16:04)
[2024-09-02 03:15] LABS: Glucose - Point of Care 104 mg/dl (70-99)
[2024-09-02 03:16] VITALS: BP 129/80
[2024-09-02 03:17] VITALS: BMI 30.9
[2024-09-02 03:54] LABS: % Basophils 0.6 % (0-2); % Eosinophils 3.8 % (0-6); % Immature Granulocytes 0.3 % (0-0.5); % Lymphocytes 21.6 % (20.5-51.1); % Monocytes 9.6 % (1.7-9.3); % Neutrophils 64.1 % (42.2-75.2); Absolute Basophils 0.1 10^3/uL (0-0.2); Absolute Eosinophils 0.4 10^3/uL (0-0.7); Absolute Lymphocytes 2.3 10^3/uL (1.2-3.4); Absolute Neutrophils 6.8 10^3/uL (1.4-6.5); Hematocrit 40.1 % (39.0-52.0); Hemoglobin 13.3 g/dL (13.0-18.0); Mean Corp Hgb Conc. 33.2 g/dL (33.0-37.0); Mean Corpuscular Volume 84.4 fL (80.0-94.0); Mean Platelet Volume 12.3 fL (7.4-10.4); Nucleated Red Blood Cells % 0 % (-); Platelet Count 187 10^3/uL (130-400); Red Blood Cell Count 4.75 10^6/uL (4.70-6.10); Red Cell Dist. Width 13.6 % (11.5-14.5); White Blood Cell Count 10.7 10^3/uL (4.8-10.8)
[2024-09-02 04:03] LABS: APTT 99.4 Sec (23.4-35.0)
[2024-09-02 04:47] LABS: Blood Urea Nitrogen 35 mg/dl (9-20); Calcium 9.7 mg/dl (8.4-10.2); Carbon Dioxide 21 mmol/L (22-30); Chloride 110 mmol/L (98-107); Estimated Creatinine Clearance 67 ml/min; Glucose 116 mg/dl (70-99); Magnesium 2.1 mg/dl (1.6-2.3); Potassium 4.4 mmol/L (3.5-5.1); Sodium 141 mmol/L (135-145); eGFR 55.09
--- NOTE | 2024-09-02 05:27 | PTCARENOTE ---
Left wrist and left lower forearm IV sites removed yesterday d/t concern of an IV infiltration. Site tender to touch and swollen. Ed Masood CT PA made aware, and instructed RN to apply heat to the site. Left arm elevated on pillow. Patient aware to
maintain NPO status for ECHO LOUIS. Will pass along to day shift RN.
[2024-09-02 07:26] VITALS: BP 122/76
[2024-09-02] MEDS: NOVOLOG FLEXPEN-MODERATE RESISTANCE SC ×3 (08:41→18:43)
[2024-09-02 08:42] LABS: Glucose - Point of Care 95 mg/dl (70-99)
[2024-09-02] MEDS: FLOMAX 0.4 MG PO (08:42)
[2024-09-02] MEDS: BUSPAR 7.5 MG PO (08:42)
[2024-09-02] MEDS: ASPIR LOW (ENTERIC COATED) 81 MG PO (08:42)
[2024-09-02] MEDS: CRESTOR 40 MG PO (08:42)
[2024-09-02] MEDS: TOPROL XL 100 MG PO (08:42)
--- NOTE | 2024-09-02 09:21 | W.PN.CARDCBS ---
Addendum entered and electronically signed by Felix Carmen DO 09/02/24 11:24:
I saw and examined the patient.
The Directional Driller's note was reviewed and I agree with the note.
Comment:
Plan:
For LOUIS today to better eval his MR and and EF
For tentative OR September 04 2024.
Cont IV Heparin
Cont Toprol for NSVT
Cont ASA
Original Note:
Today's Communication / Plan
-
For LOUIS today 09/02
Continue heparin, aspirin
Consider additional lasix
Tentative plan is for OR on Monday 09/04.
Impression / Plan
-
PCP: Dr. Cornelius Rodriguez
Card: Dr. Jonas
Impression:
Admitted with chest pain and abnormal stress test 08/28/24
NSTEMI, troponin 5.1 and trending
CAD
s/p 2.5 mm BOB to OM-1 at [facility] 04/29/03
s/p cath with patent previously placed OM-1 stent and then 2.5 mm Taxus to distal LAD and 3.5 mm Taxus to distal RCA 01/19/06
s/p cath with POBA of hazy 95% distal RCA stenosis, residual 75 to 80% stenosis in the mid LAD and 100% occlusion at the ostium of the circumflex by cardiac cath 08/28/2024
ICM EF 30% by echo 08/28/2024
Mild to mod with peak/mean 20/12 mmHg and possible fusion of the noncoronary and left coronary cusps by echo 08/28/2024
Moderate central MR
HTN
LAFB
Hyperlipidemia
DM 2
CKD 3a, baseline Cre 1.5
h/o elevated ANCA titer without evidence of active ANCA vasculitis
Echo 06/23/2023: EF 55 to 60%, normal RV size and function, mild MR, calcified aortic valve with restricted leaflet motion and possible fusion of the noncoronary and left coronary cusps, mild with peak/mean 22/13 mmHg
ECHO 08/28/2024: EF 30%, hypokinesis anterolateral, inferior and inferolateral smith, stage II diastolic dysfunction, mild MS peak/mean 15/6 mmHg, moderate central MR, possible fusion between noncoronary and left coronary cusps, mild to moderate
with peak/mean 20/12 mmHg, AMANDA 1.5 cm sq
Plan:
-Presented w/ chest pain and abnormal stress test 08/28. Trop peaked at 5.1. [facility] 08/28 noted MV CAD as outlined above.
-EF down to 30% by echo 08/28/24 with hypokinesis anterolateral, inferior and inferolateral smith as new WMAs.
-Also noted to have moderate MR and mild to moderate w/ possible fusion between noncoronary and left coronary cusps. For LOUIS today, 09/02 to further assess.
-He is stable overnight and awaiting CT surgery, tentatively planned for 09/04. No chest pain.
-Short burst of NSVT noted on tele. Asymptomatic. Continue Toprol.
-was started on dobutamine @2 briefly and was discontinued given patient does also have some degree of mitral stenosis.
-Renal insufficiency with stable creatinine Cr 1.4. LVEDP was 32 08/28/24. Did receive 1 dose of oral Lasix 09/01/24. Could consider additional dose 09/02.
-Continue heparin gtt, aspirin 81mg daily, toprol, crestor
-OP ELLY, Dyazide, and finerenone on hold due to creat above baseline.
-Known DM2 with HgbA1c 7%. Jardiance on hold. Eventually resume post op.
HPI: Patient came to the ER today with chest pain while attempting a stress test at the [facility] and cardiology has been asked to see the patient in the ER. Patient was seen in the office on 08/15/2024 with complaints of CP and LOZA. Patient has a
history of CAD as outlined above including OM-1 PCI at [facility] in 2002. Last cath was in 2005 and at that time the OM-1 stent was patent but there was new distal LAD and distal RCA disease both of which were treated with Taxus BOB. Patient takes
aspirin 81 mg daily as an outpatient, but missed the dose today while he was NPO for stress test. Patient attempted exercise nuclear stress test at the [facility] and at the end of stage I and the beginning of stage II he has started with increased CP and
ECG showed new 3-1 AV block. Exercise was stopped before patient reached 85% of MPHR. Chest pain was waxing and waning. Patient completed second set of nuclear images and final report is pending. Patient had ongoing pain and was referred to the
ER where initial troponin was elevated at 1.34. When I saw the patient he continued with a 5 out of 10 CP and was in the process of receiving NTG gtt, aspirin chewable and heparin gtt.
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
Subjective
Date of Service: September 02, 2024
No complaints. Feeling well this AM.
Objective
Labs:
09/02/24 03:33
09/02/24 03:33
Labs
Hgb 13.3 g/dL (13.0-18.0) 09/02/24 03:33
Hct 40.1 % (39.0-52.0) 09/02/24 03:33
Plt Count 187 10^3/uL (130-400) 09/02/24 03:33
PT 14.2 Sec (11.4-14.6) 08/30/24 06:26
INR 1.05 08/30/24 06:26
APTT 99.4 Sec (23.4-35.0) H 09/02/24 03:33
Sodium 141 mmol/L (135-145) 09/02/24 03:33
Potassium 4.4 mmol/L (3.5-5.1) 09/02/24 03:33
BUN 35 mg/dl (9-20) H 09/02/24 03:33
Creatinine 1.4 mg/dL (0.7-1.3) H 09/02/24 03:33
Glucose 116 mg/dl (70-99) H 09/02/24 03:33
Vital Signs and I&O:
Vital Signs
Temp Pulse Resp BP Pulse Ox
97.8 F 75 18 122/76 97
09/02/24 07:27 09/02/24 07:26 09/02/24 07:27 09/02/24 07:26 09/02/24 07:27
Vital Signs
Temp Pulse Resp BP Pulse Ox
97.8 F 75 18 122/76 97
09/02/24 07:27 09/02/24 07:26 09/02/24 07:27 09/02/24 07:26 09/02/24 07:27
Intake & Output
08/31/24 09/01/24 09/02/24 09/03/24
06:59 06:59 06:59 06:59
Intake Total 1783.6 / 1783.6 1176 / 1176 456 / 456
Output Total 575 / 575 1275 / 1275 1150 / 1150 200 / 200
Balance 1208.6 / 1208.6 -99 / -99 -694 / -694 -200 / -200
Physical Exam
Physical Exam
GEN: No distress, awake, alert, oriented x3
HEENT: supple, anicteric, mmm
LUNGS: CTA b/l, no wheezes/rales
CV: Reg, S1/S2, 2/6 syst murmur
EXT: No clubbing or cyanosis, trace edema b/l LE
NEURO: Gross non-focal
SKIN: Warm, dry, no rash
--- NOTE | 2024-09-02 09:31 | PTCARENOTE ---
During walking rounds at change of shift, patient found oob in the chair. IV heparin continues to infuse at 1800 units/hr at [facility]. Patient is aware that he is NPO x meds for scheduled LOUIS. Accu check wnl, prandin on hold. Left wrist/forearm with
trace edema from previous IV site, pulse palpable, tender to touch, warm compress applied. Call harmon in reach, awaiting planned procedure.
--- NOTE | 2024-09-02 09:36 | W.PN.HOSP.TC ---
Today's Communication/Plan
-
for LOUIS today
warm compress for Superficial venous thrombus in left forearm
maintain on heparin drip
Assessment / Plan
Assessment / Plan
NSTEMI
Ischemic cardiomyopathy
- s/p cath with POBA of hazy 95% distal RCA stenosis, residual 75 to 80% stenosis in the mid LAD and 100% occlusion at the ostium of the circumflex by cardiac cath 08/28/2024
- on asa/heparin drip currently
- ECHO 08/28 with EF 30%, hypokinesis, stage II diastolic dysfunction, valvular disease
- Initially was put on low-dose dobutamine however now discontinued given some degree of mitral stenosis.
- CTS evaluated and patient is planned to get LOUIS today.
- Eventual bypass + valve repair per CTS
History of CKD stage IIIa
-Baseline creatinine 1.5; monitor
-Continue to monitor creatinine
-History of elevated ANCA titer without evidence of active ANCA vasculitis
Acute on chronic systolic HF
- diuretics dosing per cardiology
- weight stable, no signs of oveload
# Anxiety
-BuSpar continued
# Type 2 diabetes
-A1c 7
-oral meds on hold, maintain on subq insulin
# BPH
- Flomax continued
# Hypertension
-continue Metoprolol, hold triamterene-HCTZ
# left forearm SVT
- from IV infiltration. maintain on heparin drip
- warm comperss at the area
DVT prophylaxis -on heparin drip
CODE STATUS - Full code
Anticipated Discharge: > 48 hours
Subjective/Interval History
-
Date of Service: September 02, 2024
no complains overnight
remains on heparin drip
Objective Data
-
Labs:
Laboratory Results
09/02/24
03:33
WBC 10.7
Hgb 13.3
Hct 40.1
Plt Count 187
APTT 99.4 H
Sodium 141
Potassium 4.4
Chloride 110 H
Carbon Dioxide 21 L
BUN 35 H
Creatinine 1.4 H
Glucose 116 H
Calcium 9.7
Vital Signs:
Vital Signs
Temp Pulse Resp BP Pulse Ox
97.8 F 75 18 122/76 97
09/02/24 07:27 09/02/24 07:26 09/02/24 07:27 09/02/24 07:26 09/02/24 07:27
I&O
09/01/24 09/02/24 09/03/24
06:59 06:59 06:59
Intake Total 1176 / 1176 456 / 456
Output Total 1275 / 1275 1150 / 1150 200 / 200
Balance -99 / -99 -694 / -694 -200 / -200
Review of Systems
-
Respiratory: Reports No Symptoms
Cardiac: Reports No Symptoms
Abdomen/GI: Reports No Symptoms
Physical Exam
-
General: Obese
HEENT: Negative Oxygen
Neuro: Awake, Alert, Oriented and No Motor Deficits
--- NOTE | 2024-09-02 10:23 | PTCARENOTE ---
Patient taken for his LOUIS.
[2024-09-02 12:01] VITALS: BP 106/54
--- NOTE | 2024-09-02 12:05 | PTCARENOTE ---
Patient returned from LOUIS, SR on the monitor, VSS. Sitting oob in the chair, call harmon in reach, his is at the bedside.
[2024-09-02 12:54] LABS: Glucose - Point of Care 72 mg/dl (70-99)
[2024-09-02 16:33] VITALS: BP 128/77
--- NOTE | 2024-09-02 17:14 | CM ---
plan is for CABG 09/04, cm following
[2024-09-02 18:08] LABS: Glucose - Point of Care 99 mg/dl (70-99)
[2024-09-02] MEDS: LANTUS 0.25 UNITS SC (18:43)
--- NOTE | 2024-09-02 18:50 | W.PN.UPDATE ---
Update Note
Progress Note Update
LOUIS reviewed by Dr. Pinto today. Procedure was discussed with patient and will proceed with CABG and left atrial appendage clip on Monday. Consent obtained and patient expressed understanding. Continue heparin drip and ongoing preoperative
workup.
Procedure Type:�Isolated CABG
Perioperative Outcome Estimate %
Operative Mortality 3.52%
Morbidity & Mortality 14.9%
Stroke 1.89%
Renal Failure 5.44%
Reoperation 2.92%
Prolonged Ventilation 7.55%
Deep Sternal Wound Infection 0.391%
Long Hospital Stay (>14 days) 8.43%
Short Hospital Stay (<6 days)* 30.4%
Clinical Summary
Planned Surgery: Isolated CABG, Urgent, First cardiovascular surgery
Demographics: 68 year old, male, 112kg, 188cm, BMI: 31.7 kg/m�
Lab Values: Creatinine: 1.6 mg/dL, Hematocrit: 41%, WBC Count: 12.1 10�/�L, Platelet Count: 727108 cells/�L
PreOp Medications: Insulin diabetes control
Substance Abuse: Former smoker, Alcohol use: <=1 drink/week
Risk Factors / Comorbidities: Insulin-dependent Diabetes Mellitus, Hypertension, Family Hx of CAD
Cardiac Status: Acute and chronic heart failure, Ejection Fraction = 40%
Coronary Artery Disease: 3 vessels diseased, Non-ST Elevation GA, GA: 1 to 7 Days
Valve Disease: Moderate MR, Trivial/Trace TR
[2024-09-02 19:51] VITALS: BP 124/70
[2024-09-02] MEDS: BUSPAR 15 MG PO (21:50)
[2024-09-02 22:45] VITALS: BP 123/68
[2024-09-02 22:52] LABS: Glucose - Point of Care 126 mg/dl (70-99)
[2024-09-03] VITALS (7 sets, daily range): BP systolic 100–132; BP diastolic 69–94; BMI 31.2
--- NOTE | 2024-09-03 03:01 | PTCARENOTE ---
Pt. in NSR on the monitor with some PVC's, other vitals stable, no complaints of chest pain/discomfort. Pt. sits OOB in chair evening when awake, ambulates without difficulty. Heparin gtt infusing at 1800 units/hr. Pt. sleeping.
[2024-09-03] MEDS: HEPARIN 25000 UNITS/250 ML IV ×2 (05:04→19:09)
[2024-09-03 05:20] LABS: APTT 104.3 Sec (23.4-35.0)
--- NOTE | 2024-09-03 06:36 | W.PN.CT ---
Today's Communication / Plan
-
Plan:
-Cont. current medical management/optimization per primary team
-Nurse reports LUE IV site infiltrate, swollen and tender to palpation on my assessment, no cord felt. Cont. heat therapy and elevation, will monitor
-Cont. current meds (ASA, Heparin gtt, Toprol XL)
-Avoid ELLY-I/ARBs/CCB at least [address] Surgery
-Avoid SGLT2 inhibitors (Jardiance) at least [address]
-Ongoing preop evaluation/optimization
-LOUIS yesterday showed: Mild-mod MR, mild MS, mild , Trace TR. LVEF 40%
-CABG/ ELAA by Dr. Pinto tomorrow 09/04
Assessment / Plan
-
Assessment:
-Admitted with chest pain and abnormal stress test 08/28/24
-Multivessel CAD S/p POBA distal 95% hazy distal RCA, 08/28/24
-NSTEMI (peak trop 5.1)
-Hx CAD S/P BOB to OM-1 at [facility] 04/29/03
-LVEF 30% with hypokinesis of anterolateral, inferior and inferolateral smith, per TTE 08/28/24; LVEF 40% per LOUIS 09/02
-Mild -Moderate MR
-Mild MS
-MIld
-Trace TR
-HTN
-LAFB
-Hyperlipidemia
-T2DM (hgb A1C 7.0, on insulin)
-Class 1 obesity (BMI 30.9)
-CKD 3a (baseline 1.4-1.7)
-BPH (on flomax)
-Anxiety disorder
-Hx elevated ANCA titer without evidence of active ANCA vasculitis
-S/p Cataracts
Discussed patient care with: Cardiology, Nursing, Respiratory Therapy, Pharmacy and Care Team
Subjective
-
Date of Service: September 03, 2024
No major issues overnight. Denies CP/SOB
Objective Data
-
Lab Results
09/02/24 03:33
09/02/24 03:33
PT 14.2 Sec (11.4-14.6) 08/30/24 06:26
INR 1.05 08/30/24 06:26
APTT 104.3 Sec (23.4-35.0) H 09/03/24 04:55
Vital Signs
Vital Signs
Temp Pulse Resp BP Pulse Ox
98.0 F 81 18 132/94 98
09/03/24 04:36 09/03/24 05:00 09/03/24 04:36 09/03/24 04:36 09/03/24 04:36
CT Intake/Output/Weight
09/02/24 09/02/24 09/03/24
06:59 18:59 06:59
Intake Total 216 / 456 50 / 530 480 / 530
Output Total 575 / 1150 775 / 1275 500 / 1275
Balance -359 / -694 -725 / -745 -20 / -745
SaO2: 98 (RA)
Physical Exam
-
General: Awake, Oriented and AOx3
Cardiovascular: Regular rate & rhythm, Murmur (3/6 systolic) and No Murmurs
Respiratory: Clear
Incision: Clean, Dry, Intact and Dressing Intact
Extremities: Other (+trace edema)
Data Reviewed
-
Lab Results: Results Reviewed
Medications: Active Meds Reviewed
Chest X-Ray: Report Reviewed and Image Reviewed
ECG: Report Reviewed and Image Reviewed
[2024-09-03] MEDS: CRESTOR 40 MG PO (07:58)
[2024-09-03] MEDS: FLOMAX 0.4 MG PO (07:58)
[2024-09-03] MEDS: ASPIR LOW (ENTERIC COATED) 81 MG PO (07:58)
[2024-09-03] MEDS: BUSPAR 7.5 MG PO (07:59)
[2024-09-03] MEDS: TOPROL XL 100 MG PO (08:00)
[2024-09-03 08:06] LABS: Glucose - Point of Care 117 mg/dl (70-99)
[2024-09-03] MEDS: NOVOLOG FLEXPEN-MODERATE RESISTANCE SC ×3 (08:06→17:55)
--- NOTE | 2024-09-03 09:55 | W.PN.CARDCBS ---
Today's Communication / Plan
-
RECOMMENDATIONS:
-Planned to go to OR
-discussed with CT: CABG, AISHWARYA clip, hold on MV unless there is obvious pathology in OR
-Continue high intensity statin
-Dyazide diuretic on hold.
-LV Dysfunction and diabetic: Would likely benefit from ELLY/ARB.
---Would start post op given underlying renal insufficiency once stable post op
Impression / Plan
-
PCP: Dr. Cornelius Rodriguez
Card: Dr. Jonas
Impression:
Admitted with chest pain and abnormal stress test 08/28/24
NSTEMI, troponin 5.1 ng/ml
CAD
s/p 2.5 mm BOB to OM-1 at [facility] 04/29/03
s/p cath with patent previously placed OM-1 stent and then 2.5 mm Taxus to distal LAD and 3.5 mm Taxus to distal RCA 01/19/06
s/p cath with POBA of hazy 95% distal RCA stenosis, residual 75 to 80% stenosis in the mid LAD and 100% occlusion at the ostium of the circumflex by cardiac cath 08/28/2024
ICM EF 30% by echo 08/28/2024
Mild to mod with peak/mean 20/12 mmHg and possible fusion of the noncoronary and left coronary cusps by echo 08/28/2024
Moderate central MR
HTN
LAFB
Hyperlipidemia
DM 2
CKD 3a, baseline Cre 1.5
h/o elevated ANCA titer without evidence of active ANCA vasculitis
Echo 06/23/2023: EF 55 to 60%, normal RV size and function, mild MR, calcified aortic valve with restricted leaflet motion and possible fusion of the noncoronary and left coronary cusps, mild with peak/mean 22/13 mmHg
ECHO 08/28/2024: EF 30%, hypokinesis anterolateral, inferior and inferolateral smith, stage II diastolic dysfunction, mild MS peak/mean 15/6 mmHg, moderate central MR, possible fusion between noncoronary and left coronary cusps, mild to moderate
with peak/mean 20/12 mmHg, AMANDA 1.5 cm sq
LOUIS ECHO 09/02/2024: LV: global HK with mild-moderate reduced EF estimated 40%. RV: Normal, LA: Mildly dilated, RA: Normal, AISHWARYA no thrombus, MV: Prolapse of anterior leaflet with mild-mild MR. Mild MS with mean gradient 3, AV: Mild with mean
gradient of 9. No AI. TV: Trace TR
Cath/PCI 08/28/2024: LM:Ok, LAD: Focal 75-80% mid LAD after D2, LCX: 100% occluded, RCA: Hazy 95% stenosis at crux of vessel. SUPERVISING ARCHITECT with 2.0x20 mm to 16 dain w residual 40-50%. Could NOT deliver stent
Plan:
-Successful SUPERVISING ARCHITECT of the distal RCA with inability to deliver stent through heavily calcified diffusely diseased vessel.
-Multivessel CADz: Evaluated by CT surgery with planned CABG and AISHWARYA clip on 09/04
-LOUIS on 09/02 with mild-mod MR and mild MS: Plan is NOT to replace MV
-Continue high intensity statin
-Dyazide diuretic on hold.
-LV Dysfunction and diabetic: Would likely benefit from ELLY/ARB.
---Would start post op given underlying renal insufficiency once stable post op
-Known DM2 with HgbA1c 7%. Jardiance on hold. Eventually resume post op.
-Spent 55 min review of echo and cath images, seeing and evaluating patient and in discussions with CT surgery and seeing/evaluation of patient and discussion with patient as well as preparing note
HPI: Patient came to the ER today with chest pain while attempting a stress test at the [facility] and cardiology has been asked to see the patient in the ER. Patient was seen in the office on 08/15/2024 with complaints of CP and LOZA. Patient has a
history of CAD as outlined above including OM-1 PCI at [facility] in 2002. Last cath was in 2005 and at that time the OM-1 stent was patent but there was new distal LAD and distal RCA disease both of which were treated with Taxus BOB. Patient takes
aspirin 81 mg daily as an outpatient, but missed the dose today while he was NPO for stress test. Patient attempted exercise nuclear stress test at the [facility] and at the end of stage I and the beginning of stage II he has started with increased CP and
ECG showed new 3-1 AV block. Exercise was stopped before patient reached 85% of MPHR. Chest pain was waxing and waning. Patient completed second set of nuclear images and final report is pending. Patient had ongoing pain and was referred to the
ER where initial troponin was elevated at 1.34. When I saw the patient he continued with a 5 out of 10 CP and was in the process of receiving NTG gtt, aspirin chewable and heparin gtt.
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
Subjective
Date of Service: September 03, 2024
Generally feels well. No complaints.
Total Time Spent with Patient (in minutes): 50 min.
Objective
Labs:
09/02/24 03:33
09/02/24 03:33
Labs
Hgb 13.3 g/dL (13.0-18.0) 09/02/24 03:33
Hct 40.1 % (39.0-52.0) 09/02/24 03:33
Plt Count 187 10^3/uL (130-400) 09/02/24 03:33
PT 14.2 Sec (11.4-14.6) 08/30/24 06:26
INR 1.05 08/30/24 06:26
APTT 104.3 Sec (23.4-35.0) H 09/03/24 04:55
Sodium 141 mmol/L (135-145) 09/02/24 03:33
Potassium 4.4 mmol/L (3.5-5.1) 09/02/24 03:33
BUN 35 mg/dl (9-20) H 09/02/24 03:33
Creatinine 1.4 mg/dL (0.7-1.3) H 09/02/24 03:33
Glucose 116 mg/dl (70-99) H 09/02/24 03:33
Vital Signs and I&O:
Vital Signs
Temp Pulse Resp BP Pulse Ox
97.7 F 72 16 132/94 96
09/03/24 06:40 09/03/24 06:40 09/03/24 06:40 09/03/24 04:36 09/03/24 06:40
Vital Signs
Temp Pulse Resp BP Pulse Ox
97.7 F 72 16 132/94 96
09/03/24 06:40 09/03/24 06:40 09/03/24 06:40 09/03/24 04:36 09/03/24 06:40
Intake & Output
08/31/24 09/01/24 09/02/24 09/03/24
23:59 23:59 23:59 23:59
Intake Total 1399.6 / 1399.6 720 / 720 266 / 266 480 / 480
Output Total 1200 / 1200 1225 / 1225 1275 / 1275 300 / 300
Balance 199.6 / 199.6 -505 / -505 -1009 / -1009 180 / 180
Physical Exam
Physical Exam
Physical Exam
GEN: AAO x 3.��No acute distress
HEENT:��NC/AT, sclera are anicteric
LUNGS: Clear to bases bilaterally.��No wheezing
CV: Regular rate and rhythm.��Normal S1/S2.�Murmur: I/ USB
EXT: No CCE
NEURO: No focal neurologic deficits
[2024-09-03 12:14] LABS: Glucose - Point of Care 124 mg/dl (70-99)
[2024-09-03] MEDS: MIRALAX 17 GRAMS PO (13:21)
--- NOTE | 2024-09-03 14:51 | W.PN.HOSP.TC ---
Today's Communication/Plan
-
for bypass tomorrow
continue care per Cards/CT surg
Assessment / Plan
Assessment / Plan
NSTEMI
Ischemic cardiomyopathy
- s/p cath with POBA of hazy 95% distal RCA stenosis, residual 75 to 80% stenosis in the mid LAD and 100% occlusion at the ostium of the circumflex by cardiac cath 08/28/2024
- on asa/heparin drip currently
- ECHO 08/28 with EF 30%, hypokinesis, stage II diastolic dysfunction, valvular disease
- Initially was put on low-dose dobutamine however now discontinued given some degree of mitral stenosis.
- got LOUIS on Monday
- bypass + valve repair per CTS tomorrow
History of CKD stage IIIa
-Baseline creatinine 1.5; monitor
-Continue to monitor creatinine
-History of elevated ANCA titer without evidence of active ANCA vasculitis
Acute on chronic systolic HF
- diuretics dosing per cardiology
- weight stable, no signs of oveload
# Anxiety
-BuSpar continued
# Type 2 diabetes
-A1c 7
-oral meds on hold, maintain on subq insulin
# BPH
- Flomax continued
# Hypertension
-continue Metoprolol, hold triamterene-HCTZ
# left forearm SVT
- from IV infiltration. maintain on heparin drip
- warm comperss at the area
DVT prophylaxis -on heparin drip
CODE STATUS - Full code
Anticipated Discharge: Within 24 hours
Subjective/Interval History
-
Date of Service: September 03, 2024
No complaints overnight
Objective Data
-
Labs:
Laboratory Results
09/03/24
04:55
APTT 104.3 H
Vital Signs:
Vital Signs
Temp Pulse Resp BP Pulse Ox
97.6 F 67 18 100/85 100
09/03/24 11:16 09/03/24 12:00 09/03/24 11:16 09/03/24 11:15 09/03/24 11:16
I&O
09/02/24 09/03/24 09/04/24
06:59 06:59 06:59
Intake Total 456 / 456 530 / 530
Output Total 1150 / 1150 1275 / 1275 200 / 200
Balance -694 / -694 -745 / -745 -200 / -200
Review of Systems
-
Respiratory: Reports No Symptoms
Cardiac: Reports No Symptoms
Abdomen/GI: Reports No Symptoms
Physical Exam
-
General: No Apparent Distress and Comfortable
HEENT: Negative Oxygen
Musculoskeletal: No Edema
Neuro: Awake, Alert, Oriented, No Motor Deficits and Nonfocal/Grossly Intact
Psych: Calm
--- NOTE | 2024-09-03 16:19 | VATNOTE ---
called to assess right ac line from 08/28. Pt had been itching area due to spandage. This VAT RN assessed and redressed IV site and cleaned per protocol; let air dry. area seems more of a contact dermatitis than red from a phlebitis. IV site left in.
Area not sore or firm; just red. Pt stated less itchy when spandage removed. PCN to change heparin tubing.
[2024-09-03 17:12] LABS: Glucose - Point of Care 141 mg/dl (70-99)
[2024-09-03] MEDS: LANTUS 0.25 UNITS SC (17:55)
[2024-09-03 21:42] LABS: Glucose - Point of Care 136 mg/dl (70-99)
[2024-09-03] MEDS: BUSPAR 15 MG PO (23:11)
--- NOTE | 2024-09-04 04:25 | PTCARENOTE ---
Rec'd pt at change of shift. AAO*3, VSS, and SR CVOR prep complete. CT PA aware and rec'd verbal instruction that pt would not be first case on schedule. Also instructed to hold pre op meds until doctors notice. Heparin infusing as ordered. pt
denies any pain or discomfort and now resting with call harmon in reach and plan of care ongoing.
[2024-09-04 05:22] VITALS: BP 125/74
[2024-09-04 06:00] VITALS: BMI 31.0
[2024-09-04 06:25] LABS: Hematocrit 43.5 % (39.0-52.0); Hemoglobin 14.5 g/dL (13.0-18.0); Mean Corp Hgb Conc. 33.3 g/dL (33.0-37.0); Mean Corpuscular Hgb 28.3 pg (27.0-31.0); Mean Corpuscular Volume 84.8 fL (80.0-94.0); Mean Platelet Volume 12.6 fL (7.4-10.4); Platelet Count 168 10^3/uL (130-400); Red Blood Cell Count 5.13 10^6/uL (4.70-6.10); Red Cell Dist. Width 13.7 % (11.5-14.5); White Blood Cell Count 8.7 10^3/uL (4.8-10.8)
[2024-09-04 06:30] LABS: APTT 83.9 Sec (23.4-35.0)
[2024-09-04 06:38] LABS: Blood Urea Nitrogen 29 mg/dl (9-20); Carbon Dioxide 23 mmol/L (22-30); Chloride 110 mmol/L (98-107); Estimated Creatinine Clearance 73 ml/min; Glucose 114 mg/dl (70-99); Potassium 4.4 mmol/L (3.5-5.1); Sodium 141 mmol/L (135-145); eGFR > 60.00
[2024-09-04] MEDS: FLOMAX PO (08:16)
[2024-09-04] MEDS: MIRALAX PO (08:16)
[2024-09-04 08:25] LABS: Glucose - Point of Care 122 mg/dl (70-99)
[2024-09-04] MEDS: NOVOLOG FLEXPEN-MODERATE RESISTANCE SC ×2 (08:25→15:22)
--- NOTE | 2024-09-04 08:45 | PTCARENOTE ---
Pt NSR on the monitor, Hr 70-80's, hep gtt infusinf at 1800 unit per hour. Pt has no c/o pain or SOB. VSS. Pt in agreement with POC.
[2024-09-04] MEDS: ASPIR LOW (ENTERIC COATED) PO (09:26)
[2024-09-04] MEDS: BUSPAR PO (09:26)
[2024-09-04] MEDS: TOPROL XL 100 MG PO (09:26)
[2024-09-04] MEDS: MAGNESIUM OXIDE 500 MG PO (09:26)
[2024-09-04] MEDS: PROTONIX 40 MG PO (09:26)
[2024-09-04] MEDS: BACTROBAN 2% OINTMENT 1 APPLIC NASAL ×2 (09:26→21:23)
[2024-09-04] MEDS: CRESTOR PO (09:27)
--- NOTE | 2024-09-04 11:25 | PTCARENOTE ---
Pt transferred to OR at this time, Hep gtt stopped at 11:12, chart and meds sent with pt. pt's belongings moved to 3508.
[2024-09-04 12:10] LABS: ACT+ - POC 112 Seconds (82-134)
--- NOTE | 2024-09-04 12:38 | CM ---
Chart reviewed. Patient is in the OR today. Patient is independent of ADLS, lives with his in a 3 S[address], 4 CLOTILDE, 0 DME. Plan is for the patient to return home with CT Transitional RN.
[2024-09-04 12:54] LABS: Urine Albumin 2+ (Neg - Trace); Urine Bilirubin Negative (Negative); Urine Character Clear (Clear); Urine Color Yellow; Urine Glucose Negative (Negative); Urine Ketone Negative (Negative); Urine Leukocyte Negative (Negative); Urine Nitrite Negative (Negative); Urine Occult Blood 1+ (Negative); Urine Specific Gravity 1.015 (<1.030); Urine Urobilinogen Negative (Neg - 1+)
[2024-09-04 13:23] LABS: Urine Bacteria Few (Negative); Urine Squamous Cell 0-2 /LPF (Few); Urine White Cell 0-2 /HPF (0-5)
[2024-09-04 13:26] LABS: ACT+ - POC 455 Seconds (82-134)
[2024-09-04 13:41] LABS: B.E. - POC -3.6 mmol/L; Glucose - POC 107 mg/dl (70-99); HCO3 - POC 21 mmol/L (21-28); Hematocrit - POC 39 % PCV (42-52); Hemodilution- POC No; Hemoglobin Calculated - POC 13.2; Ionized Calcium - POC 1.22 mmol/L (1.15-1.33); O2 Saturation %Calculated-POC 99.6 % (94-98); PCO2 - POC 35 mmHg (35-48); PO2 - POC 178 mmHg (83-108); POC Comment PRE; Potassium - POC 3.9 mmol/L (3.5-5.1); Sodium - POC 143 mmol/L (136-145); Specimen Type - POC Arterial; pH - POC 7.39 (7.35-7.45)
[2024-09-04 13:46] LABS: ACT+ - POC 433 Seconds (82-134)
[2024-09-04 14:02] LABS: ACT+ - POC 638 Seconds (82-134)
[2024-09-04 14:26] LABS: ACT+ - POC 638 Seconds (82-134)
[2024-09-04 14:36] LABS: Glucose - POC 197 mg/dl (70-99); HCO3 - POC 23 mmol/L (21-28); Hematocrit - POC 35 % PCV (42-52); Hemodilution- POC Yes; Ionized Calcium - POC 1.11 mmol/L (1.15-1.33); Lactate - POC 0.71 mmol/L (0.36-0.75); O2 Saturation %Calculated-POC 99.9 % (94-98); PCO2 - POC 37 mmHg (35-48); PO2 - POC 293 mmHg (83-108); POC Comment CPB; Potassium - POC 5.5 mmol/L (3.5-5.1); Sodium - POC 139 mmol/L (136-145); Specimen Type - POC Arterial; pH - POC 7.39 (7.35-7.45)
[2024-09-04 14:44] LABS: ACT+ - POC 664 Seconds (82-134)
[2024-09-04 15:09] LABS: B.E. - POC -3.6 mmol/L; Glucose - POC 211 mg/dl (70-99); HCO3 - POC 22 mmol/L (21-28); Hematocrit - POC 34 % PCV (42-52); Hemodilution- POC Yes; Hemoglobin Calculated - POC 11.6; Ionized Calcium - POC 1.12 mmol/L (1.15-1.33); Lactate - POC 1.01 mmol/L (0.36-0.75); O2 Saturation %Calculated-POC 99.7 % (94-98); PCO2 - POC 38 mmHg (35-48); PO2 - POC 202 mmHg (83-108); POC Comment WARM; Potassium - POC 5.3 mmol/L (3.5-5.1); Sodium - POC 139 mmol/L (136-145); Specimen Type - POC Arterial; pH - POC 7.36 (7.35-7.45)
[2024-09-04 15:13] LABS: ACT+ - POC 120 Seconds (82-134)
[2024-09-04] MEDS: NOVOLOG FLEXPEN SC ×2 (15:23→15:35)
[2024-09-04] MEDS: TYLENOL PO ×2 (15:29→22:20)
[2024-09-04] MEDS: PACERONE PO (15:29)
[2024-09-04] MEDS: NEURONTIN PO (15:29)
[2024-09-04 15:42] LABS: B.E. - POC -4.9 mmol/L; Glucose - POC 165 mg/dl (70-99); HCO3 - POC 20 mmol/L (21-28); Hematocrit - POC 34 % PCV (42-52); Hemodilution- POC Yes; Hemoglobin Calculated - POC 11.6; Ionized Calcium - POC 1.18 mmol/L (1.15-1.33); Lactate - POC 1.06 mmol/L (0.36-0.75); O2 Saturation %Calculated-POC 99.7 % (94-98); PCO2 - POC 38 mmHg (35-48); PO2 - POC 217 mmHg (83-108); POC Comment POST; Potassium - POC 4.6 mmol/L (3.5-5.1); Sodium - POC 140 mmol/L (136-145); Specimen Type - POC Arterial; pH - POC 7.34 (7.35-7.45)
--- NOTE | 2024-09-04 15:43 | CON.INTV ---
Consultation
Consultation Request
Date/Time Consultation Requested: 09/04/2024 - 1514
Date/Time Consultation Performed: 09/04/2024 - 1539
Requesting Provider: YUNIER Thomas
Performing Provider: Dr. Colon
Reason for Consultation: s/p CABG + ELAA
Medical History
-
Chief Complaint: SOB/chest pain
History of Present Illness:
68-year-old male former tobacco smoker with a past medical history of CAD s/p stents x 4, DM type II, CKD, hypertension, hypercholesterolemia, BPH, pseudogout, colonic polyps, anxiety and herpes zoster (02/2018) who presents with an abnormal stress
test with SOB + chest pain. He attempted an exercise nuclear stress test with recurrent episodes of chest pressure and high-grade AV block. He was having progressive exertional dyspnea with intermittent episodes of exertional chest pressure prior
to this stress test. In the ER his initial troponin was elevated at 1.34. He was started on a nitroglycerin drip + heparin drip after being given aspirin. Initial EKG showed inferoanterolateral ST depressions. He was admitted to the IVU for an
NSTEMI. Transthoracic echo on 08/28 showed severely reduced LV systolic function with EF 30%, with hypokinesis of the anterolateral, inferior and inferolateral smith. Also stage II diastolic dysfunction, with mild mitral stenosis, moderate central
MR, mild this moderate aortic stenosis with peak/mean gradients of 20/12 mmHg, respectively, with AMANDA of 1.5 cm�, and normal PASP at 28 mmHg. His prior echo in June 2023 showed a preserved LVEF at 55% and his MR at that time was mild. He
underwent a left heart catheterization on 08/28 showing multivessel disease with 75-80% stenosis in the mid LAD, 100 send occlusion at the ostial left circumflex, and hazy 95% distal RCA stenosis, and he underwent plain old balloon angioplasty of his
RCA lesion. Also there was an elevated LVEDP at 32 mmHg. Surgical revascularization was discussed with the patient and he agreed to this procedure. Today he underwent a CABG x 4 + left atrial appendage exclusion with a 35mm device. There were no
complications postoperatively and he was transferred to the CVICU for further care. Service Advocate Contact service is now consulted for additional management/recommendations.
When I saw the patient he was resting in bed in no acute distress, intubated on SIMV at 16/500/40%/5, with PIP 22 cmH2O, VTe 469 cc and breathing at 16 breaths/min. Heart rate 91, BP via A-line: 98/54, BP via NIBP: 98/65, PAP 26/14, SpO2 95% and
CO/CI: 7.04/2.99, respectively. Currently on Levophed at 1 mcg/min, Precedex at 0.5 mcg/kg/hr, dobutamine at 3 mcg/kg/min, and insulin drip at 3 units/hr.
PMHx: CAD s/p stents x 4 (OM1 PCI - [facility] 2002, PCI to distal LAD + RCA PCI which overlapped a 3.0 x 16 mm Taxus BOB - [facility] 2005), DM type II, hypertension, hypercholesterolemia, history of hematuria, pseudogout, BPH, colonic polyps, right-sided
retinal tear, microalbuminuria, CKD, anxiety, herpes zoster (February 2018)
PSHx: Cataract surgery bilaterally + coronary stents x 4 at 51 years old (approximately)
Past Medical History
Past Medical History: Other (Above as per HPI)
Past Surgical History: Other (Above as per HPI)
Social History
Tobacco: Former Smoker (Quit >30 years ago)
Alcohol: None
Drug: None
Family History
Family History: CAD (Father + mother), Diabetes (Mother, maternal grandfather + maternal grandmother) and Other (Mother: TIA)
Allergies / Home Medications
Allergies
Allergy/AdvReac Type Severity Reaction Status Date / Time
No Known Allergies Allergy Verified 08/28/24 10:19
Home Medications
�Medication �Instructions �Recorded �Confirmed �Last Taken �Type
aspirin 81 mg tablet,delayed 81 mg PO DAILY Blood Clot 08/28/24 08/28/24 08/27/24 History
release Prevention/Tx
buspirone 15 mg tablet 7.5 mg PO DAILY Mental 08/28/24 08/28/24 08/27/24 History
Health/Anxiety
buspirone 15 mg tablet 15 mg PO HS Mental Health/Anxiety 08/28/24 08/28/24 08/27/24 History
empagliflozin 10 mg tablet 10 mg PO DAILY Diabetes 08/28/24 08/28/24 08/27/24 History
(Jardiance)
finerenone 20 mg tablet (Kerendia) 20 mg PO DAILY Kidney Disease 08/28/24 08/28/24 08/27/24 History
furosemide 40 mg tablet (Lasix) 40 mg PO DAILY Fluid 08/28/24 08/28/24 08/27/24 History
Retention/Swelling
insulin glargine 100 unit/mL (3 40 unit SC QPM Gastrointestinal 08/28/24 08/28/24 08/27/24 History
mL) subcutaneous pen (Lantus Issue
Solostar U-100 Insulin)
insulin lispro-aabc 100 unit/mL 12 sliding scale dose SC AC 08/28/24 08/28/24 08/27/24 History
subcutaneous pen (Lyummonikav KwfabianoPen Gastrointestinal Issue
U-100 Insulin)
metoprolol succinate 50 mg 100 mg PO DAILY Heart 08/28/24 08/28/24 08/27/24 History
tablet,extended release 24 hr Disease/Condition
omega-3 acid ethyl esters 1 gram 2 g PO BID Supplement 08/28/24 08/28/24 08/27/24 History
capsule
repaglinide 2 mg tablet 4 mg PO TID Diabetes 08/28/24 08/28/24 08/27/24 History
rosuvastatin 40 mg tablet (Crestor) 40 mg PO DAILY High Cholesterol 08/28/24 08/28/24 08/27/24 History
tamsulosin 0.4 mg capsule (Flomax) 0.4 mg PO DAILY Urinary Issue 08/28/24 08/28/24 08/27/24 History
tirzepatide 5 mg/0.5 mL 5 mg SC MO Diabetes 08/28/24 08/28/24 08/26/24 History
subcutaneous pen injector
(Mounjaro)
triamterene 37.5 1 cap PO DAILY Blood Clot 08/28/24 08/28/24 08/27/24 History
mg-hydrochlorothiazide 25 mg Prevention/Tx
capsule
Review of Systems
-
Unable to Obtain full review of systems at this time due to: Patient Intubation
Vitals / Labs / Diagnostic Testing
Vital Signs
Temp Pulse Resp BP Pulse Ox
96.7 F L 87 16 135/92 94
09/04/24 16:13 09/04/24 16:03 09/04/24 16:03 09/04/24 09:26 09/04/24 16:11
Laboratory Results
09/03/24 09/04/24 09/04/24
18:21 05:33 16:08
APTT Cancelled 83.9 H
pH 7.36
pCO2 39
pO2 94
HCO3 22.0
O2 Delivery Level
Diagnostic Testing:
Physical Exam
-
HEENT: Normocephalic, Anicteric and Other (ETT in place)
Cardiovascular: S1/S2 and Peripheral Edema (negative)
Respiratory: Wheeze (negative), Rales (negative), Rhonchi (negative), Non-Labored Respirations, Other (Mechanical breath sounds heard bilaterally) and Other (Chest tubes: mediastinal chest tubes x 2 + left pleural chest tube x 1)
GI: Soft, Distended (Abdominal obesity), Non Tender and Normal Bowel Sounds
Neurology: Tremors (negative) and Other (Sedated)
Skin: Warm and Dry
General: Respiratory Distress (negative), Comfortable, Fever (negative) and Chills (negative)
Assessment
-
Assessment: 68-year-old male former tobacco smoker with a past medical history of CAD s/p stents x 4, DM type II, CKD, hypertension, hypercholesterolemia, BPH, pseudogout, colonic polyps, anxiety and herpes zoster (02/2018) who presents with an
abnormal stress test with SOB + chest pain. He attempted an exercise nuclear stress test with recurrent episodes of chest pressure and high-grade AV block. He was having progressive exertional dyspnea with intermittent episodes of exertional chest
pressure prior to this stress test. In the ER his initial troponin was elevated at 1.34. He was started on a nitroglycerin drip + heparin drip after being given aspirin. Initial EKG showed inferoanterolateral ST depressions. He was admitted to
the IVU for an NSTEMI. Transthoracic echo on 08/28 showed severely reduced LV systolic function with EF 30%, with hypokinesis of the anterolateral, inferior and inferolateral smith. Also stage II diastolic dysfunction, with mild mitral stenosis,
moderate central MR, mild this moderate aortic stenosis with peak/mean gradients of 20/12 mmHg, respectively, with AMANDA of 1.5 cm�, and normal PASP at 28 mmHg. His prior echo in June 2023 showed a preserved LVEF at 55% and his MR at that time
was mild. He underwent a left heart catheterization on 08/28 showing multivessel disease with 75-80% stenosis in the mid LAD, 100 send occlusion at the ostial left circumflex, and hazy 95% distal RCA stenosis, and he underwent plain old balloon
angioplasty of his RCA lesion. Also there was an elevated LVEDP at 32 mmHg. Surgical revascularization was discussed with the patient and he agreed to this procedure. Today he underwent a CABG x 4 + left atrial appendage exclusion with a 35mm
device. There were no complications postoperatively and he was transferred to the CVICU for further care. Service Advocate Contact service is now consulted for additional management/recommendations.
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
Impression:
#Multivessel CAD with NSTEMI/ICM s/p CABG x 4+ left atrial appendage exclusion with a 35mm device � POD #0)
#Acute anemia due to above
#Acute thrombocytopenia due to above
#DM type II (uncontrolled - HbA1C: 7 on 08/29/2024) c/b hyperglycemia (mild)
#Acute on chronic HFrEF
#Pulmonary hypertension
#History of CAD s/p stenting x 4 (BOB to OM1 - [facility] 2002, BOB to distal LAD + BOB to RCA which overlapped a 3.0 x 16 mm Taxus BOB - [facility] 2005)
#Hypertension
#Hyperlipidemia
#CKD stage IIIa
#Obesity (BMI: 30.9)
#Former tobacco smoker (quit >30 years ago)
Plan:
Ventilator settings reviewed
FiO2 will be weaned to maintain SpO2 >90-94%
Minute ventilation will be adjusted
Arterial blood gases will be monitored
Spontaneous breathing trial will be attempted with hopeful extubation after anesthesia/sedation wear off
prn nebulized bronchodilators - not currently bronchospastic
Pulmonary artery catheter parameters will be followed
Pressors/antihypertensive/inotropes/diuretics will be provided as needed
Maintain MAP>65
Replete electrolytes with K>4, Mg>2
Monitor chest tube output (mediastinal chest tubes x 2 + left pleural chest tube x 1)
Monitor hemoglobin
Monitor platelet count and coags
Transfuse blood products as needed to maintain Hb>7g/dL, plt>50k (given post-operative status)
CT surgery managing chest tubes
Monitor blood sugar to maintain euglycemia with goal BG 110-140
Insulin drip per protocol
Aspiration precautions
VAP prevention protocol
DVT prophylaxis
Early nutrition
Early mobilization
Critical care statement: A total of 38 minutes of critical care time was provided for this patient today. This includes management of ventilator, spontaneous breathing trial, arterial blood gases, pressors, of unstable vital signs, evaluation of the
patient at bedside, reviewing the patient's pertinent medical records including radiographs, microbiology, laboratory evaluations, and discussion with primary team and critical care nursing.
--- NOTE | 2024-09-04 15:57 | W.PN.CT.SURG ---
CT Surgery Operative Note
-
CARDIAC SURGERY OPERATIVE REPORT
Preoperative Diagnosis: Multivessel Coronary Artery Disease with ischemic cardiomyopathy and NSTEMI
Postoperative Diagnosis: Same
Procedure(s) Performed:
1. Standard sternotomy with aortic and right atrial cannulation
2. Internal mammary artery harvesting and endoscopic harvesting of vein in the right lower extremity
3. Coronary artery bypass grafting x 4 (In situ HOANG to LAD, Ao to RSVG to OM sequential to OM, Ao to RSVG to RPDA)
4. Placement temporary ventricular pacing wires
5. Left atrial appendage exclusion with a 35 mm device [serial #[id number]]
6. Transesophageal echocardiography
Date of Surgery: 09/04/2024
Comorbidities:
1. Acute on chronic ischemic cardiomyopathy with both systolic and diastolic dysfunction
2. Depressed left ventricular ejection fraction approximately 35%
3. Functional and degenerative mitral valve insufficiency with mild stenosis
4. Mild aortic valve stenosis
5. Moderately severe pulmonary hypertension
6. History of CAD status post stenting x 2
7. Hypertension
8. Hyperlipidemia
9. CKD stage IIIa
10. Insulin-dependent diabetic
11. Morbidly obese with BMI of greater than 30
Attending Surgeon: Hayder Pinto MD, MS
Assistants: Jonna Greco PA-C (present and necessary to educational assistant, retraction, suction, exposure, suture management, and wound closure under my direction) & Lisa Dash PA-C (endo vein harvest)
Anesthesiology: Pablo Hickey MD and Virginia Amador CRNA
Scrub and Circulating RNs: Ruben Darden, RN, Catalina Lagunas RN
Mass Communications Instructor: David Horton CCP
Anesthesia: GETA
EBL: per perfusion records
Products: None
CPB Time: 84 minutes
Aortic Cross Clamp Time: 73 minutes
Indication(s) for Procedures: This is a 68-year-old male who presented to the emergency department after a outpatient stress test with 2 months of progressive shortness of breath and stable angina. He ruled in for an NSTEMI and underwent left heart
cath with angioplasty to the right system as the culprit vessel. He had residual significant coronary disease involving the proximal LAD as well as a GLASS GRINDER lesion to the proximal circumflex. He had significant functional valvular dysfunction at that
time with evidence of acute on chronic ischemic cardiomyopathy. With some diuresis, afterload reduction and inotropic support, his EF did improve to approximately 45% with reduction in mitral valve insufficiency. Ultimately, multidisciplinary team
discussion was to move forward with revascularization and to leave his valves alone.
Conduit(s) Quality:
HOANG -excellent/skeletonized
RSVG -good/minor varicosities and thickening, multiple branches
Target(s) Quality:
RCA/PDA -good/somewhat of an acceptable target, had significantly better flows with test dose of antegrade of approximately 55 cc a minute, flow probe assessment of the graft demonstrated mean flow of approximately 17 cc a minute with a pulsatile
index of 4.8
OM 1 and 2-good/this was a GLASS GRINDER lesion, 2 OM's were able to be identified and of adequate target size, a vein graft was grafted here with test dosing antegrade yielding approximately 45 cc a minute at a pressure of 80 mmHg, flow probe assessment had
a mean flow approximately 30 cc a minute with a pulsatile index of 5.5
LAD -average/heavily, heavily calcified throughout the entire LAD tree, I was able to find a spot proximally that dove down towards the myocardium. There was good visual pinking up of the myocardium upon removal of the bulldog clamp of the HOANG
graft, flow probe assessment yielded a mean flow of approximately 21 with a pulse index of 2.4
Findings: His left ventricular ejection fraction preoperatively was approximately 45%, there was regional wall motion abnormalities towards the inferior lateral wall that appeared to be more sluggish. There was a moderate degree of mitral valve
insufficiency that was both functional and had a component of degenerative disease particularly towards the posterior leaflet which was heavily calcified. The mean gradient across the mitral valve was 3 mmHg. The mean gradient across the aortic
valve was 13 mmHg. The HOANG was harvested in a skeletonized fashion. Following bypass grafting, test dose cardioplegia was given down each distal and confirmed patency and hemostasis. The left atrial appendage was verified to be free of any
thrombus or debris preoperatively and found to be totally occlusive postoperatively. Following revascularization, the heart appeared to be more vigorous in its contractions. The LVEF was approximately 50 to 55% and the regional wall motion
abnormalities mostly towards the inferior lateral wall had improved. The basal was moving better. The mitral valve insufficiency was mild to moderate. He did not require any blood products. He was placed preemptively on inotropic support at
dobutamine of 3. He did not require any pacing and resumed his sinus rhythm.
Description of Procedure: The patient was taken to the operating room. Their identity and procedure to be performed were verified and they were positioned supine on the operating table. Induction via general anesthesia with endotracheal intubation
was performed and central venous access and arterial monitoring were inserted. A preoperative transesophageal echocardiogram was performed to assess cardiac function and valvular function. The patient was then prepped and draped from chin to feet in
a sterile fashion. A preoperative time-out was performed with all members of the team present. A midline chest incision was performed along with median sternotomy. Simultaneous endoscopic access of the right lower extremity for saphenous vein
harvest was obtained. A RulTract sternal retractor was positioned to exposure the left internal mammary bed. The mammary was harvested and found to have good flow. A bulldog clamp was applied to the distal end of the mammary after dividing it. It
was wrapped in a papaverine soaked RayTec and replaced back into the left hemithorax. The RulTract was exchanged for a median sternal retractor. The innominate vein was isolated. Full heparinization was given (a total of 70,000 units). We created a
pericardial well. The aortic cannulation site was chosen where it was soft, pliable, and free of calcium. Cannulation was performed with an arterial cannula in the ascending aorta and a triple-stage venous cannula through the right atrial appendage.
The arterial cannula line had an appropriate bounce and correlating pressures with test dosing. Next, a root vent/antegrade cannula was inserted into the ascending aorta. The ACT was confirmed to be over 400 and retrograde autologous priming was
performed before commencing cardiopulmonary bypass. The pulmonary artery was away from the aorta to facilitate a clamp site. The aortic cross-clamp was placed after decreasing the flow on the bypass and mean arterial pressure. A total of
1.2L initial dose of antegrade Del-Nido cardioplegia solution was given and planned for re-dosing every 75 minutes as necessary. There was rapid electro-mechanical arrest of the heart at 280 cc of cardioplegia. The left ventricle was observed for
distention on echocardiogram and manual palpation. Cold slush was placed into a sponge and topically on the RV while we systemically cooled to 34 degrees centigrade. The heart was then rotated medially and the left atrial appendage was clipped with
a 35 mm device flush to the base. Since I had the heart already exposed laterally, identify the OM targets.
A akhiok blade was used to expose the OM 2 coronary and perform the arteriotomy. Coronary Palacio scissors were used to enlarge the incision. The saphenous vein was trimmed and beveled to an appropriate size. The distal anastomosis was performed using
7-0 prolene in an end-to-side fashion. Antegrade cardioplegia was administered into the graft. Appropriate hemostasis and flow were confirmed. I then sized the graft in order to accommodate a sequential vessel to the OM1. The OM1 target was
prepared in a similar fashion and a small coronary arteriotomy was created and enlarged with Palacio scissors. A obdb-rh-vbhu anastomosis was then created with the vein graft and after occluding the distal end of the vein graft test dosing antegrade
was given down the graft to verify both flow and hemostasis which was excellent down the graft and target. The graft was measured for length to the aorta and cut. A suitable site on the RPDA was chosen. We dissected and prepared the distal target
in a similar fashion. An end-to-side anastomosis was created with a 7-0 prolene. Antegrade cardioplegia was administered into the graft. Appropriate hemostasis and flow were confirmed. The graft was measured for length to the aorta and cut. A
suitable target on the proximal to mid left anterior descending was identified of note, the LAD was heavily calcified throughout its entire course and I was able to find a intramyocardial proximal portion that dove down towards the myocardium that
was softer and suitable for grafting. We dissected and prepared the distal target in a similar fashion. We retrieved the HOANG from the chest and created a pericardial opening while being cognizant of the phrenic nerve to facilitate the course of the
mammary. The distal end of the mammary was prepped and beveled to size. We verified orientation and length of the MIKE and found brisk flow. An end-to-side anastomosis was created with a 7-0 prolene. We temporarily released the bulldog clamp on the
mammary to inspect flow. Perfusion to the LAD territory was visualized and hemostasis was confirmed. The bull clamp was replaced on the mammary. The heart was filled and the root was distended with antegrade cardioplegia to make final assessment of
graft length and orientation. We created 2 aortotomies using a #11 blade then a 4.0mm aortic punch. The proximal anastomoses were created in an end-to-side fashion using 6-0 prolene. At the the same time, we re-warmed to 36.5 degrees centigrade. The
bulldog clamp was removed from the mammary. Temporary bipolar ventricular pacing wires were placed on the base of the right ventricle. The patient was placed in a Trendelenburg position and flows on bypass were lowered. The aortic cross clamp was
removed and flows were slowly brought back up. All bypass grafts were inspected and were free from kinking or twisting. The distal and proximal anastomoses appeared hemostatic. Once transesophageal echocardiography appeared satisfactory for
de-airing, the flows were temporarily lowered for root vent removal. After verifying acceptable parameters, we initiated weaning from cardiopulmonary bypass. Once we were off cardiopulmonary bypass, the venous cannula was clamped and removed. A test
dose of protamine was administered and the patient was monitored for any adverse reaction before resuming protamine. Once half of the protamine dose was delivered, pump suckers were turned off and the systolic blood pressure was lowered for aortic
decannulation. The aortic cannula was removed and pursestrings were tied down. All cannulation sites were oversewn with a 4-0 prolene. The mammary bed was inspected and hemostasis was confirmed. Once the mediastinum was hemostatic, 19Fr Guillaume drain
was placed in the left pleural cavity and two 24Fr Guillaume drains were placed within the pericardium. The sternum was approximated with 4 #7 single and 3 #8 double stainless steel wires. Fascia was approximated with #1 vicryl suture. The subcutaneous,
dermis and epidermis were closed in layers in a running fashion. The skin wound was cleansed and dressed.
All instrument, sponge, and needle counts were confirmed to be correct x 2 at the end of the operation. The patient was transferred to the cardiac intensive care unit in critical but stable condition.
I, Dr. Hayder Pinto, was present, scrubbed for, and performed all critical elements of this procedure.
Hayder Pinto MD, MS
Cardiothoracic Surgeon
[facility]
This operative dictation was created using the [employer] dictation system. Please excuse any grammatical, typographical, or 'sound alike' errors
[2024-09-04 16:08] LABS: Glucose - Point of Care 135 mg/dl (70-99)
[2024-09-04 16:14] LABS: B.E. -3.2 mmol/L; O2 Saturation % 97.9 % (94-98); PCO2 39 mmHg (35-48); PO2 94 mmHg (83-108); Potassium 4.4 mMOL/L (3.5-5.1); Sodium 136 mMOL/L (136-145); pH 7.36 (7.35-7.45)
[2024-09-04] MEDS: ANCEF 10 IV ×2 (16:17→16:18)
[2024-09-04] MEDS: NSS 500 IV (16:17)
[2024-09-04] MEDS: LR 250 ML IV ×2 (16:19→18:42)
[2024-09-04 16:24] LABS: Hematocrit 34.6 % (39.0-52.0); Hemoglobin 11.8 g/dL (13.0-18.0); Platelet Count 103 10^3/uL (130-400)
[2024-09-04 16:27] LABS: Blood Urea Nitrogen 27 mg/dl (9-20); Estimated Creatinine Clearance 63 ml/min; Glucose 147 mg/dl (70-99); Magnesium 2.5 mg/dl (1.6-2.3)
[2024-09-04 16:31] LABS: INR 1.29; PT 16.6 Sec (11.4-14.6)
[2024-09-04] MEDS: DILAUDID 0.5 MG IV (16:34)
[2024-09-04 16:37] VITALS: BP 98/65
--- NOTE | 2024-09-04 16:44 | W.PN.CARDCBS ---
Addendum entered and electronically signed by Ramana Arteaga MD 09/04/24 17:40:
I saw and examined the patient.
The Cartridge Loading Operator's note was reviewed and I agree with the note.
Comment:
GEN: No distress, intubated/sedated
HEENT: supple, anicteric, mmm
LUNGS: CTA, no wheezes/rales
CV: Reg, S1/S2, 1/6 syst LSB, no rub
ABD: soft, BS+, NT/ND
EXT: No edema
NEURO: Gross non-focal
SKIN: sternotomy
Plan:
Overall doing well status post CABG and left atrial appendage clip.
LVEF improved to 45 to 60% post bypass.
Wean to extubate and wean off dobutamine.
Continue postoperative care.
Continue aspirin and Plavix.
Original Note:
Today's Communication / Plan
-
continue post op care
Impression / Plan
-
PCP: Dr. Cornelius Rodriguez
Card: Dr. Jonas
Impression:
Admitted with chest pain and abnormal stress test 08/28/24
NSTEMI, troponin 5.1 ng/ml
CAD
s/p 2.5 mm BOB to OM-1 at [facility] 04/29/03
s/p cath with patent previously placed OM-1 stent and then 2.5 mm Taxus to distal LAD and 3.5 mm Taxus to distal RCA 01/19/06
s/p cath with POBA of hazy 95% distal RCA stenosis, residual 75 to 80% stenosis in the mid LAD and 100% occlusion at the ostium of the circumflex by cardiac cath 08/28/2024
s/p CABG x 4 (in situ HOANG to LAD, AO to R SVG to OM sequential to OM, AO to RSVG to RPDA), AISHWARYA clip 09/04/2024
ICM EF 30% by echo 08/28/2024
Mild to mod with peak/mean 20/12 mmHg and possible fusion of the noncoronary and left coronary cusps by echo 08/28/2024
Moderate central MR
HTN
LAFB
Hyperlipidemia
DM 2
CKD 3a, baseline Cre 1.5
h/o elevated ANCA titer without evidence of active ANCA vasculitis
Echo 06/23/2023: EF 55 to 60%, normal RV size and function, mild MR, calcified aortic valve with restricted leaflet motion and possible fusion of the noncoronary and left coronary cusps, mild with peak/mean 22/13 mmHg
ECHO 08/28/2024: EF 30%, hypokinesis anterolateral, inferior and inferolateral smith, stage II diastolic dysfunction, mild MS peak/mean 15/6 mmHg, moderate central MR, possible fusion between noncoronary and left coronary cusps, mild to moderate
with peak/mean 20/12 mmHg, AMANDA 1.5 cm sq
LOUIS ECHO 09/02/2024: LV: global HK with mild-moderate reduced EF estimated 40%. RV: Normal, LA: Mildly dilated, RA: Normal, AISHWARYA no thrombus, MV: Prolapse of anterior leaflet with mild-mild MR. Mild MS with mean gradient 3, AV: Mild with mean
gradient of 9. No AI. TV: Trace TR
Cath/PCI 08/28/2024: LM:Ok, LAD: Focal 75-80% mid LAD after D2, LCX: 100% occluded, RCA: Hazy 95% stenosis at crux of vessel. DEAN OF INSTRUCTION with 2.0x20 mm to 16 dain w residual 40-50%. Could NOT deliver stent
Plan:
- He was admitted with chest pain and abnormal stress test and ruled in for NSTEMI with peak troponin of 5. Echo with ischemic cardiomyopathy, EF 30%
- Was noted to have multivessel CAD by cath and underwent POBA of distal RCA stenosis 08/28/[address] surgical evaluation
- s/p CABG x 4 (in situ HOANG to LAD, AO to R SVG to OM sequential to OM, AO to RSVG to RPDA), AISHWARYA clip 09/04/2024
- Intubated, sedated. On Enmanuel hugger
- On levo at 3, dobutamine at 3, insulin at 3. Wean as able. CI 2.9
- There was initial consideration for MVR at time of CABG, however LOUIS on 09/02 after diuresis with mild to moderate MR and mild MS, so he did not undergo mitral valve intervention
- Hemoglobin 11.8, platelets 103
- in SR by review of EKG
- Continue postoperative care
- Will initiate GDMT of ischemic cardiomyopathy postoperatively as able. EF 45 to 50% with basal inferior hypokinesis post bypass by IntraOp LOUIS
- Known type II diabetic with hemoglobin A1c 7%
- Discussed with nursing
HPI: Patient came to the ER today with chest pain while attempting a stress test at the [facility] and cardiology has been asked to see the patient in the ER. Patient was seen in the office on 08/15/2024 with complaints of CP and LOZA. Patient has a
history of CAD as outlined above including OM-1 PCI at [facility] in 2002. Last cath was in 2005 and at that time the OM-1 stent was patent but there was new distal LAD and distal RCA disease both of which were treated with Taxus BOB. Patient takes
aspirin 81 mg daily as an outpatient, but missed the dose today while he was NPO for stress test. Patient attempted exercise nuclear stress test at the [facility] and at the end of stage I and the beginning of stage II he has started with increased CP and
ECG showed new 3-1 AV block. Exercise was stopped before patient reached 85% of MPHR. Chest pain was waxing and waning. Patient completed second set of nuclear images and final report is pending. Patient had ongoing pain and was referred to the
ER where initial troponin was elevated at 1.34. When I saw the patient he continued with a 5 out of 10 CP and was in the process of receiving NTG gtt, aspirin chewable and heparin gtt.
Progress Note - Boat Operator
Subjective
Date of Service: September 04, 2024
intubated, sedated
Objective
Labs:
09/04/24 16:08
Labs
Hgb 11.8 g/dL (13.0-18.0) L 09/04/24 16:08
Hct 34.6 % (39.0-52.0) L 09/04/24 16:08
Plt Count 103 10^3/uL (130-400) L D 09/04/24 16:08
PT 16.6 Sec (11.4-14.6) H 09/04/24 16:08
INR 1.29 09/04/24 16:08
APTT 83.9 Sec (23.4-35.0) H 09/04/24 05:33
Sodium 141 mmol/L (135-145) 09/04/24 05:33
Potassium 4.4 mmol/L (3.5-5.1) 09/04/24 05:33
BUN 27 mg/dl (9-20) H 09/04/24 16:08
Creatinine 1.5 mg/dL (0.7-1.3) H 09/04/24 16:08
Glucose 147 mg/dl (70-99) H 09/04/24 16:08
Vital Signs and I&O:
Vital Signs
Temp Pulse Resp BP Pulse Ox
96.7 F L 89 16 98/65 93
09/04/24 16:15 09/04/24 16:40 09/04/24 16:15 09/04/24 16:37 09/04/24 16:40
Vital Signs
Temp Pulse Resp BP Pulse Ox
96.7 F L 89 16 98/65 93
09/04/24 16:15 09/04/24 16:40 09/04/24 16:15 09/04/24 16:37 09/04/24 16:40
Intake & Output
09/02/24 09/03/24 09/04/24 09/05/24
07:59 07:59 07:59 07:59
Intake Total 456 / 456 530 / 530 480 / 480 72 / 72
Output Total 1150 / 1150 1275 / 1275 450 / 450
Balance -694 / -694 -745 / -745 72 / 72
Physical Exam
Physical Exam
GEN: No distress, intubated, sedated. on enmanuel hugger
HEENT: supple, mmm
LUNGS: CTA B/L, no wheezes
CV: Reg, S1/S2, 1/6 murmur
EXT: No cyanosis, clubbing, edema
NEURO: sedated
SKIN: Warm, pink, dry. No rash. Sternotomy dressing c/d/i. CTs in place
: sonya
--- NOTE | 2024-09-04 16:48 | W.PN.UPDATE ---
Update Note
Progress Note Update
68-year-old male was admitted on 08/28/2024 after experiencing chest discomfort during an outpatient stress test. Ruled in for NSTEMI by troponin. A TTE reported EF of 30% with mild and moderate MR. Cath results with severe multivessel coronary
artery disease status post balloon angioplasty of distal RCA. Patient diuresed and repeat LOUIS 09/02 reported EF 40% with mild , mild MS, and mild-moderate MR.
IV fluids: 1500
U.O.:� 550
Blood:� none
Wires:� bipolar V-wire
Drips: Dobut @ 3, Levo @ 2, Insulin, Precedex
�
NEURO: sedated, pupils +2mm B/L
RESP: #8OT @24cm> 500/40%/02/10. Lungs clear B/L. 2 mediastinal (0cc on arrival) and R/L pleural (20cc on arrival) chest tubes to -20cm suction. Sanguineous drainage , no air leak, no crepitus
CV: RRR +S1, S2, no S3, no�rub, no murmur. Dermabond to median sternotomy. RIJ w/[place] locked @ 48cm. PA ; CVP 11
ABD: round, soft, no BS
EXT: no edema, +2/4 DP pulses B/L, no femoral bruit, RLE ELLY wrap intact; left radial A-line intact
: Meneses with clear yellow urine
�
A/P: POD #0 s/p CABG x 4 (HOANG to LAD, SVG to OM sequential to OM, SVG to RPDA), left atrial appendage exclusion (#35 mm clip)
LOUIS: EF�45-50% on Dobutamine @ 3
- wean and extubate
- Keep Dobutamine and add Cardene if needed for HTN
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
- will require ASA, Plavix, statin (Crestor)
- add beta roz when off dobutamine
- F/U TTE on Monday
# CKDIIIa
- resume Kerendia when tolerating solids
# Anxiety/Depression
- resume home Buspar regimen
�
# acute surgical blood loss anemia-expected
- trend CBC
�
# T2DM (A1C 7.0)
- insulin infusion x 48h
- on Glargine, lispro, Jardiance, Mounjaro, Prandin at home
- diabetes KITCHENHAND consulted
�
# BPH
- resume�Flomax in AM if BP tolerates
[2024-09-04 16:59] LABS: Glucose - Point of Care 135 mg/dl (70-99)
[2024-09-04] MEDS: CARDENE 200 IV (17:08)
--- NOTE | 2024-09-04 17:17 | PTCARENOTE ---
Patient received from [facility] s/p CABG x 4/LAAE. RIJ Cordis/[place]-Jose Alfredo catheter, L radial arterial lines present - leveled, flushed, and calibrated w/good waveforms returned. Epicardial V-wire to pulse generator - tested at bedside by surgeon.
Mediastinal chest tubes x 2, Y-connected to one pleurevac, L pleural chest tube to separate collection chamber - both placed to -20cm suction w/no air leaks appreciated. Meneses catheter to gravity. All procedural sites stable. Rash noted to R AC , R
groin. Labs drawn, EKG performed, pcxr obtained. Toni hugger applied. See work list for full assessment, interventions performed, and intravenous infusions and titrations.
[2024-09-04 18:01] LABS: Glucose - Point of Care 132 mg/dl (70-99)
[2024-09-04 19:06] LABS: Glucose - Point of Care 138 mg/dl (70-99)
--- NOTE | 2024-09-04 19:32 | PTCARENOTE ---
pt received from previous rn. pt NSR per tele monitor HR 80s. v wire set to VVI 50/10/0.8. Mediastinal chest tubes x 2, Y-connected to one pleurevac, L pleural chest tube to separate collection chamber - both placed to -20cm suction w/no air leaks/
crepitus/ tidaling. pox 98% lungs diminished. ETT 8.0 24cm@the lip. Vent set to SIMV 16/500/5/5/40% hypoactive bs, hassan catheter draining clear yellow urine. all surgical sites intact. RIJ Cordis/[place]-Jose Alfredo catheter, L radial arterial lines present
- leveled, flushed, and calibrated pix infusing insulin per glycemic protocol.
[2024-09-04 19:55] LABS: Glucose - Point of Care 113 mg/dl (70-99)
[2024-09-04 20:05] LABS: Hematocrit 34.9 % (39.0-52.0); Hemoglobin 12.1 g/dL (13.0-18.0); Platelet Count 118 10^3/uL (130-400)
[2024-09-04 20:58] LABS: Glucose - Point of Care 111 mg/dl (70-99)
[2024-09-04 21:00] LABS: B.E. -1.6 mmol/L; HCO3 22.9 mmol/L (21-28); Ionized Calcium 1.21 mMOL/L (1.15-1.33); O2 Saturation % 97.6 % (94-98); PCO2 37 mmHg (35-48); PO2 130 mmHg (83-108); Potassium 4.7 mMOL/L (3.5-5.1)
[2024-09-04 21:03] LABS: Mixed Venous O2 Saturation 73.4 %
[2024-09-04] MEDS: SENOKOT-S PO (21:23)
[2024-09-04] MEDS: OFIRMEV 100 IV (21:23)
--- NOTE | 2024-09-04 21:45 | PTCARENOTE ---
pt placed on CPAP @2024, ABG drawn, results discussed w. CTPA, pt extubated @2109 to 6L NC w/ no incident able to follow all commands and state name and .
--- NOTE | 2024-09-04 21:47 | RESPNOTE ---
Pt extubated at 0 to NC. No incidents occured during extubation. + vocalization - stridor.
[2024-09-04] MEDS: ANCEF 5 IV (21:50)
[2024-09-04] MEDS: LOW STRENGTH ASPIRIN 81 MG PO (21:50)
[2024-09-04] MEDS: NEURONTIN 100 MG PO (22:20)
[2024-09-04] MEDS: PACERONE 200 MG PO (22:20)
[2024-09-04] MEDS: BUSPAR 15 MG PO (22:20)
[2024-09-04 22:55] LABS: Glucose - Point of Care 103 mg/dl (70-99)
[2024-09-05] VITALS (34 sets, daily range): BP systolic 98–151; BP diastolic 61–90; PULSE 77; O2SAT 96–97; BMI 30.7
[2024-09-05 00:56] LABS: Glucose - Point of Care 119 mg/dl (70-99)
[2024-09-05] MEDS: FLEXERIL 5 MG PO ×3 (01:06→19:47)
[2024-09-05 03:02] LABS: Glucose - Point of Care 110 mg/dl (70-99)
[2024-09-05 03:19] LABS: Hematocrit 35.3 % (39.0-52.0); Hemoglobin 12.1 g/dL (13.0-18.0); Mean Corp Hgb Conc. 34.3 g/dL (33.0-37.0); Mean Corpuscular Hgb 28.5 pg (27.0-31.0); Mean Corpuscular Volume 83.1 fL (80.0-94.0); Mean Platelet Volume 12.7 fL (7.4-10.4); Platelet Count 140 10^3/uL (130-400); Red Blood Cell Count 4.25 10^6/uL (4.70-6.10); Red Cell Dist. Width 13.8 % (11.5-14.5); White Blood Cell Count 14.3 10^3/uL (4.8-10.8)
--- NOTE | 2024-09-05 03:27 | PTCARENOTE ---
routine labs obtained. VSS. NSR per tele monitor HR 80s.
[2024-09-05 03:38] LABS: Blood Urea Nitrogen 27 mg/dl (9-20); Calcium 8.9 mg/dl (8.4-10.2); Carbon Dioxide 20 mmol/L (22-30); Chloride 110 mmol/L (98-107); Estimated Creatinine Clearance 63 ml/min; Glucose 117 mg/dl (70-99); Magnesium 2.3 mg/dl (1.6-2.3); Sodium 139 mmol/L (135-145); eGFR 50.71
--- NOTE | 2024-09-05 04:25 | W.PN.CT ---
Today's Communication / Plan
-
-pod #1
-no issues overnight. Extubated uneventfully at 9:15 pm
-CI 2.16, CO 5.08, SVR 1070. Drips: Dobut 3, Insulin. Levo is off at 3 am[address]
-CT output: L pleur 80/120, 2 meds 65/85 in 12/24 hrs
-gave 1 bicarb
-Cr 1.5 today (1.3-1.5 preop)- follow
-follow K - 5.0 today
-wean Dobut as tolerated
-continue Insulin
-encourage IS, OOB
Assessment / Plan
-
Impression:
-s/p CABG x 4 (In situ HOANG to LAD, Ao to RSVG to OM sequential to OM, Ao to RSVG to RPDA); LAAE with a [address] Pinto on 09/04/24, pod #1
-intraop LOUIS: LVEF preop was approximately 45%, there was regional wall motion abnormalities towards the inferior lateral wall that appeared to be more sluggish. There was a moderate degree of mitral valve insufficiency that was both functional and
had a component of degenerative disease particularly towards the posterior leaflet which was heavily calcified. The mean gradient across the mitral valve was 3 mmHg. The mean gradient across the aortic valve was 13 mmHg. The LVEF postop was
approximately 50 to 55% and the regional wall motion abnormalities mostly towards the inferior lateral wall had improved. The basal was moving better. The mitral valve insufficiency was mild to moderate. The left atrial appendage was verified to
be free of any thrombus or debris preoperatively and found to be totally occlusive postoperatively.
-Admitted with chest pain and abnormal stress test 08/28/24
-Multivessel CAD S/p POBA distal 95% hazy distal RCA, 08/28/24
-NSTEMI (peak trop 5.1)
-Hx CAD S/P BOB to OM-1 at [facility] 04/29/03
-LVEF 30% with hypokinesis of anterolateral, inferior and inferolateral smith, per TTE 08/28/24; LVEF 40% per LOUIS 09/02
-Moderately severe pulmonary hypertension
-Mild -Moderate MR
-Mild MS
-MIld
-Trace TR
-HTN
-LAFB
-Hyperlipidemia
-T2DM (hgb A1C 7.0, on insulin)
-Class 1 obesity (BMI 30.9)
-CKD 3a (baseline 1.4-1.7)
-BPH (on Flomax)
-Anxiety disorder
-Hx elevated ANCA titer without evidence of active ANCA vasculitis
-S/p Cataracts
-Acute postop blood loss anemia
-Acute postop thrombocytopenia - improved
-Acute postop atelectasis
-Acute postop hypovolemia with subsequent hypervolemia
Discussed patient care with: Nursing
Subjective
-
Date of Service: September 05, 2024
Objective Data
-
Lab Results
09/05/24 03:02
09/05/24 03:02
PT 16.6 Sec (11.4-14.6) H 09/04/24 16:08
INR 1.29 09/04/24 16:08
APTT 83.9 Sec (23.4-35.0) H 09/04/24 05:33
Vital Signs
Vital Signs
Temp Pulse Resp BP Pulse Ox
97.6 F 77 19 104/70 98
09/05/24 04:00 09/05/24 04:04 09/05/24 04:04 09/05/24 04:01 09/05/24 04:04
CT Intake/Output/Weight
09/04/24 09/04/24 09/05/24
06:59 18:59 06:59
Intake Total 480 / 480 404.6 / 1123.3 718.7 / 1123.3
Output Total 310 / 1170 860 / 1170
Balance 480 / 30 94.6 / -46.7 -141.3 / -46.7
SaO2: 98
Physical Exam
-
General: Awake and AOx3
Cardiovascular: Regular rate & rhythm, No Murmurs and Rub
Respiratory: Decreased Breath Sounds
Sternum: Stable
Incision: Clean, Dry and Intact
Extremities: No Edema (DPs 1+ b/l)
Abdomen: soft, nontender, + decreased bowel sounds
Data Reviewed
-
Lab Results: Results Reviewed
Medications: Active Meds Reviewed
Chest X-Ray: Report Reviewed and Image Reviewed
ECG: Report Reviewed
[2024-09-05 04:57] LABS: Glucose - Point of Care 96 mg/dl (70-99)
[2024-09-05 05:03] LABS: B.E. -4.6 mmol/L; HCO3 20.3 mmol/L (21-28); O2 Saturation % 97.6 % (94-98); PCO2 36 mmHg (35-48); PO2 108 mmHg (83-108); pH 7.36 (7.35-7.45)
[2024-09-05 05:07] LABS: O2 Therapy 2L NC
[2024-09-05] MEDS: TYLENOL 1000 MG PO ×3 (05:59→21:04)
[2024-09-05] MEDS: ANCEF 5 IV ×2 (05:59→13:57)
[2024-09-05] MEDS: SODIUM BICARBONATE 50 MEQ IV (06:00)
[2024-09-05 07:03] LABS: Glucose - Point of Care 88 mg/dl (70-99)
--- NOTE | 2024-09-05 07:38 | W.PN.CARDCBS ---
Addendum entered and electronically signed by Ramana Arteaga MD 09/05/24 16:31:
I saw and examined the patient.
The Able Bodied Watchman's note was reviewed and I agree with the note.
Comment:
GEN: No distress, awake, Ox3
HEENT: supple, anicteric, mmm
LUNGS: CTA, no wheezes/rales
CV: Reg, S1/S2, 1/6 syst LSB, no rub
ABD: soft, BS+, NT/ND
EXT: No edema
NEURO: Gross non-focal
SKIN: sternotomy
Plan:
Doing well status post CABG. Wean dobutamine as tolerated.
In sinus rhythm. Continue amiodarone
Continue aspirin and Plavix. Hg 12.1
Original Note:
Today's Communication / Plan
-
Dobutamine at 2
Impression / Plan
-
PCP: Dr. Cornelius Rodriguez
Card: Dr. Jonas
Impression:
Admitted with chest pain and abnormal stress test 08/28/24
NSTEMI, troponin 5.1 ng/ml
CAD
s/p 2.5 mm BOB to OM-[address] at [facility] 04/29/03
s/p cath with patent previously placed OM-1 stent and then 2.5 mm Taxus to distal LAD and 3.5 mm Taxus to distal RCA 01/19/06
s/p cath with POBA of hazy 95% distal RCA stenosis, residual 75 to 80% stenosis in the mid LAD and 100% occlusion at the ostium of the circumflex by cardiac cath 08/28/2024
s/p CABG x 4 (in situ HOANG to LAD, AO to R SVG to OM sequential to OM, AO to RSVG to RPDA), AISHWARYA clip 09/04/2024
ICM EF 30% by echo 08/28/2024
Mild to mod with peak/mean 20/12 mmHg and possible fusion of the noncoronary and left coronary cusps by echo 08/28/2024
Moderate central MR
HTN
LAFB
Hyperlipidemia
DM 2
CKD 3a, baseline Cre 1.5
h/o elevated ANCA titer without evidence of active ANCA vasculitis
Cath/PCI 08/28/2024: LM:Ok, LAD: Focal 75-80% mid LAD after D2, LCX: 100% occluded, RCA: Hazy 95% stenosis at crux of vessel. [employer] with 2.0x20 mm to 16 dain w residual 40-50%. Could NOT deliver stent
Echo 06/23/2023: EF 55 to 60%, normal RV size and function, mild MR, calcified aortic valve with restricted leaflet motion and possible fusion of the noncoronary and left coronary cusps, mild with peak/mean 22/13 mmHg
ECHO 08/28/2024: EF 30%, hypokinesis anterolateral, inferior and inferolateral smith, stage II diastolic dysfunction, mild MS peak/mean 15/6 mmHg, moderate central MR, possible fusion between noncoronary and left coronary cusps, mild to moderate
with peak/mean 20/12 mmHg, AMANDA 1.5 cm sq
LOUIS ECHO 09/02/2024: LV: global HK with mild-moderate reduced EF estimated 40%. RV: Normal, LA: Mildly dilated, RA: Normal, AISHWARYA no thrombus, MV: Prolapse of anterior leaflet with mild-mild MR. Mild MS with mean gradient 3, AV: Mild with mean
gradient of 9. No AI. TV: Trace TR
Plan:
-Patient is s/p CABG with HOANG to LAD, SVG to OM sequential to OM, SVG to RPDA 09/05/24. Extubated 09/04/24 PM and now on RA
-Patient had an abnormal stress test at [facility] and sent to the ER and Troponin peaked at 5.11. Patient managed as a NSTEMI and taken to cath and underwent POBA of distal RCA stenosis 08/28/[address] surgical evaluation
-Cont aspirin and Plavix
-Remains on dobutamine at 2
-Post-op dose Lopressor 12.5 mg BID on hold while on dobutamine. Patient was taking Toprol XL 100 mg daily prior to admission
-Outpatient dose of lisinopril 40 mg daily is on hold post-op.
-Outpatient dose of triamterene/HCTZ 37.5/25 mg daily is on hold post-op
-Outpatient dose of finerenone 20 mg daily is on hold post-op
-LDL 62 and outpatient dose of Crestor 40 mg daily has been continued
-Patient with known DM 2 and the HgbA1c is 7%. Outpatient dose of Prandin 4 mg TID is on hold. Outpatient dose of Jardiance 10 mg daily is also on hold, but will eventually restart when Cre comes back to baseline.
-ICM, EF 30% on echo 08/28/24, but a bit better at 40-45% by LOUIS 09/02/24 and same on 09/04/24 intra-op study
-ECG reviewed by me 09/04/24 and 09/05/24 are SR without acute ST changes
HPI: Patient came to the ER today with chest pain while attempting a stress test at the [facility] and cardiology has been asked to see the patient in the ER. Patient was seen in the office on 08/15/2024 with complaints of CP and LOZA. Patient has a
history of CAD as outlined above including OM-[address] [facility] in 2002. Last cath was in 2005 and at that time the OM-1 stent was patent but there was new distal LAD and distal RCA disease both of which were treated with Taxus BOB. Patient takes
aspirin 81 mg daily as an outpatient, but missed the dose today while he was NPO for stress test. Patient attempted exercise nuclear stress test at the [facility] and at the end of stage I and the beginning of stage II he has started with increased CP and
ECG showed new 3-1 AV block. Exercise was stopped before patient reached 85% of MPHR. Chest pain was waxing and waning. Patient completed second set of nuclear images and final report is pending. Patient had ongoing pain and was referred to the
ER where initial troponin was elevated at 1.34. When I saw the patient he continued with a 5 out of 10 CP and was in the process of receiving NTG gtt, aspirin chewable and heparin gtt.
Progress Note - Blanket Binder
Subjective
Date of Service: September 05, 2024
He feels well, aching type of pain
Objective
Labs:
09/05/24 03:02
09/05/24 03:02
Labs
Hgb 12.1 g/dL (13.0-18.0) L 09/05/24 03:02
Hct 35.3 % (39.0-52.0) L 09/05/24 03:02
Plt Count 140 10^3/uL (130-400) 09/05/24 03:02
PT 16.6 Sec (11.4-14.6) H 09/04/24 16:08
INR 1.29 09/04/24 16:08
APTT 83.9 Sec (23.4-35.0) H 09/04/24 05:33
Sodium 139 mmol/L (135-145) 09/05/24 03:02
Potassium 5.0 mmol/L (3.5-5.1) 09/05/24 03:02
BUN 27 mg/dl (9-20) H 09/05/24 03:02
Creatinine 1.5 mg/dL (0.7-1.3) H 09/05/24 03:02
Glucose 117 mg/dl (70-99) H 09/05/24 03:02
Vital Signs and I&O:
Vital Signs
Temp Pulse Resp BP Pulse Ox
97.6 F 79 18 107/70 97
09/05/24 07:00 09/05/24 07:02 09/05/24 07:02 09/05/24 06:00 09/05/24 07:02
Vital Signs
Temp Pulse Resp BP Pulse Ox
97.6 F 79 18 107/70 97
09/05/24 07:00 09/05/24 07:02 09/05/24 07:02 09/05/24 06:00 09/05/24 07:02
Intake & Output
09/03/24 09/04/24 09/05/24 09/06/24
06:59 06:59 06:59 06:59
Intake Total 530 / 530 480 / 480 1234.5 / 1264.7 30.2 / 30.2
Output Total 1275 / 1275 450 / 450 1320 / 1400 80 / 80
Balance -745 / -745 30 / 30 -85.5 / -135.3 -49.8 / -49.8
Physical Exam
Physical Exam
GEN: NAD. AAOx3
HEENT: EOMI, MMM
LUNGS: RA. No wheeze
CV: SR on tele.
ABD: ND
EXT: No edema B/L
NEURO: Gross non-focal
SKIN: No rash
--- NOTE | 2024-09-05 08:15 | W.PN.INTV ---
Today's Communication / Plan
Recommendations
Up OOB as tolerated
Pain control
Encourage IS use q1hr while awake
Keep SpO2 >90-94%
Removal of R�IJ cordis + PAC per CT surgery team
Monitor output from chest tubes
Wean off insulin drip per protocol with goal BG 110�140
Wean off dobutamine drip while trending MVO2 with goal >65�70 and CI >2
[employer] services will continue to follow along while patient remains in the CVICU.
Assessment
-
Assessment: 68-year-old male former tobacco smoker with a past medical history of CAD s/p stents x 4, DM type II, CKD, hypertension, hypercholesterolemia, BPH, pseudogout, colonic polyps, anxiety and herpes zoster (02/2018) who presents with an
abnormal stress test with SOB + chest pain. He attempted an exercise nuclear stress test with recurrent episodes of chest pressure and high-grade AV block. He was having progressive exertional dyspnea with intermittent episodes of exertional chest
pressure prior to this stress test. In the ER his initial troponin was elevated at 1.34. He was started on a nitroglycerin drip + heparin drip after being given aspirin. Initial EKG showed inferoanterolateral ST depressions. He was admitted to
the IVU for an NSTEMI. Transthoracic echo on 08/28 showed severely reduced LV systolic function with EF 30%, with hypokinesis of the anterolateral, inferior and inferolateral smith. Also stage II diastolic dysfunction, with mild mitral stenosis,
moderate central MR, mild this moderate aortic stenosis with peak/mean gradients of 20/12 mmHg, respectively, with AMANDA of 1.5 cm�, and normal PASP at 28 mmHg. His prior echo in June 2023 showed a preserved LVEF at 55% and his MR at that time
was mild. He underwent a left heart catheterization on 08/28 showing multivessel disease with 75-80% stenosis in the mid LAD, 100 send occlusion at the ostial left circumflex, and hazy 95% distal RCA stenosis, and he underwent plain old balloon
angioplasty of his RCA lesion. Also there was an elevated LVEDP at 32 mmHg. Surgical revascularization was discussed with the patient and he agreed to this procedure. Today he underwent a CABG x 4 + left atrial appendage exclusion with a 35mm
device. There were no complications postoperatively and he was transferred to the CVICU for further care. [employer] service is now consulted for additional management/recommendations.
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
Impression:
#Multivessel CAD with NSTEMI/ICM s/p CABG x 4+ left atrial appendage exclusion with a 35mm device � POD #1)
#Acute anemia due to above
#Acute thrombocytopenia due to above - improving
#DM type II (uncontrolled - HbA1C: 7 on 08/29/2024) c/b hyperglycemia (mild)
#Acute on chronic HFrEF
#Pulmonary hypertension
#History of CAD s/p stenting x 4 (BOB to OM1 - [facility] 2002, BOB to distal LAD + BOB to RCA which overlapped a 3.0 x 16 mm Taxus BOB - [facility] 2005)
#Hypertension
#Hyperlipidemia
#CKD stage IIIa
#Obesity (BMI: 30.9)
#Former tobacco smoker (quit >30 years ago)
Plan:
Patient successfully extubated on 09/04/2024, and is currently on room air breathing comfortably saturating 95%
Maintain SpO2 >90-94%
prn nebulized bronchodilators - not currently bronchospastic
Encourage IS use q1hr while awake
Pulmonary artery catheter parameters will be followed
Pressors/antihypertensive/inotropes/diuretics will be provided as needed
Maintain MAP>65
Replete electrolytes with K>4, Mg>2
Monitor chest tube output (mediastinal chest tubes x 2 + left pleural chest tube x 1 --> pleural CT to be removed this AM)
Monitor hemoglobin
Monitor platelet count and coags
Transfuse blood products as needed to maintain Hb>7g/dL, plt>50k (given post-operative status)
CT surgery managing chest tubes
Monitor blood sugar to maintain euglycemia with goal BG 110-140
Insulin drip per protocol
Aspiration precautions
DVT prophylaxis
Early nutrition
Early mobilization
[employer] services will continue to follow along while patient remains in the CVICU.
Critical care statement: A total of 43 minutes of critical care time was provided for this patient today. This includes management of ventilator, spontaneous breathing trial, arterial blood gases, pressors, of unstable vital signs, evaluation of the
patient at bedside, reviewing the patient's pertinent medical records including radiographs, microbiology, laboratory evaluations, and discussion with primary team and critical care nursing.
Subjective Dataa
Subjective Data
Date of Service:
Date of Service: September 05, 2024
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
Subjective:
Patient was seen and evaluated today at bedside. Resting in bed with his , Ann, at bedside. Currently on room air breathing comfortably with saturations of 95%. He remains on insulin drip at 0.3 units/hr as well as dobutamine at 1
mcg/kg/min. Heart rate 80, BP 155/69 via A-line, BP via NIBP: 127/74, PAP 40/14, and CO/CI: 4.75/2.02, respectively. Mediastinal chest tubes x 2 and left pleural chest tube x [address]. He has some fatigue and postoperative chest pain but denies
ABDI, abdominal pain, nausea, fevers or chills.
Review of Systems
General: Other (Negative unless mentioned above)
Objective Data
Data Reviewed
Vital Signs / I&O / Oxygen:
Vital Signs
Temp Pulse Resp BP Pulse Ox
97.6 F 76 19 133/59 97
09/05/24 09:00 09/05/24 09:08 09/05/24 09:08 09/05/24 08:59 09/05/24 09:02
Intake and Output
09/04/24 09/05/24 09/06/24
06:59 06:59 06:59
Intake Total 480 / 480 1234.5 / 1264.7 335.7 / 335.7
Output Total 450 / 450 1320 / 1400 220 / 220
Balance 30 / 30 -85.5 / -135.3 115.7 / 115.7
SaO2 [SIMV] 98
SaO2 97
Nasal Cannula flow liters per 2
minute
Physical Exam
General: Respiratory Distress (negative), Comfortable, Chills (negative), Sweats (negative) and Other (In NAD; fatigued appearing)
HEENT: Normocephalic, Anicteric and Other (R-IJ cordis with PAC in place)
Cardiovascular: S1-S2 and Peripheral Edema (Trace right lower extremity edema, no edema on the left lower extremity)
Respiratory: Wheeze (negative), Crackles (Bibasilar), Rhonchi (negative), Non-Labored Respirations, Stridor (negative), Chest Tube (Mediastinal chest tubes x 2 + left pleural chest tube x 1) and Other (Diminished breath sounds bilaterally)
GI: Soft, Non Distended, Non Tender and Normal Bowel Sounds
Neurology: AO x 3, Tremors (negative) and Other (Drowsy but answering all questions appropriately)
Skin: Warm, Dry, Cyanosis (negative) and Jaundice (negative)
Labs/Micro/Reports
Lab Data
09/05/24 03:02
09/05/24 03:02
Laboratory Results
09/04/24 09/04/24 09/05/24
16:08 20:54 04:54
PT 16.6 H
INR 1.29
pH 7.36 7.40 7.36
pCO2 39 37 36
pO2 94 130 H 108
HCO3 22.0 22.9 20.3 L
O2 Delivery Level 2l nc
[2024-09-05 08:52] LABS: B.E. - POC 0.8 mmol/L; Glucose - POC 145 mg/dl (70-99); HCO3 - POC 26 mmol/L (21-28); Hematocrit - POC 31 % PCV (42-52); Hemodilution- POC Yes; Hemoglobin Calculated - POC 10.4; Ionized Calcium - POC 1.05 mmol/L (1.15-1.33); Lactate - POC < 0.30 mmol/L (0.36-0.75); PCO2 - POC 43 mmHg (35-48); PO2 - POC 515 mmHg (83-108); POC Comment CPB; Potassium - POC 4.9 mmol/L (3.5-5.1); Sodium - POC 139 mmol/L (136-145); Specimen Type - POC Arterial; pH - POC 7.39 (7.35-7.45)
[2024-09-05] MEDS: SENOKOT-S 1 TABLET PO ×2 (08:57→19:48)
[2024-09-05] MEDS: PROTONIX 40 MG PO (08:58)
[2024-09-05] MEDS: BUSPAR 7.5 MG PO (08:58)
[2024-09-05] MEDS: PLAVIX 75 MG PO (08:58)
[2024-09-05] MEDS: CRESTOR 40 MG PO (08:58)
[2024-09-05] MEDS: BACTROBAN 2% OINTMENT 1 APPLIC NASAL ×2 (08:58→19:48)
[2024-09-05] MEDS: NEURONTIN 100 MG PO ×3 (08:58→21:04)
[2024-09-05] MEDS: LOW STRENGTH ASPIRIN 81 MG PO (08:58)
[2024-09-05] MEDS: MAGNESIUM OXIDE 500 MG PO ×2 (08:59→19:48)
[2024-09-05] MEDS: PACERONE 200 MG PO ×3 (08:59→21:04)
[2024-09-05 09:09] LABS: Glucose - Point of Care 100 mg/dl (70-99)
[2024-09-05] MEDS: NOVOLOG FLEXPEN SC ×2 (09:48→12:36)
--- NOTE | 2024-09-05 10:45 | PTCARENOTE ---
L pleural chest tube d/c'd as ordered. Patient tolerated well. Temporary pacing wire insulated to chest wall.
[2024-09-05] MEDS: NOVOLIN R INSULIN INFUSION 100 IV (10:55)
[2024-09-05 11:04] LABS: Glucose - Point of Care 83 mg/dl (70-99)
--- NOTE | 2024-09-05 11:24 | W.PN.ANS.POP ---
Anesthesia Post Operative
- Anesthesia Post Op Note
Vital Signs Stable-See Nursing Note: Yes
Airway Patent: Yes
Adequate Pain Control: Yes
Change in Mental Status: No
Current Postoperative Nausea & Vomiting: No
Anesthesia Complications: No
General Anesthetic Recall: No
Unplanned Admission: No
Post Op Hydration Adequate: Yes
[2024-09-05] MEDS: ULTRAM 50 MG PO (12:05)
--- NOTE | 2024-09-05 12:08 | CM ---
Chart reviewed. Patient is independent of ADLS, lives with his in a 3 [address], 4 CLOTILDE, 0 DME. Plan is for the patient to return home with CT Transitional RN. CM to follow
[2024-09-05 12:12] LABS: Glucose - Point of Care 108 mg/dl (70-99)
--- NOTE | 2024-09-05 12:15 | PTCARENOTE ---
VS obtained, assessment stable. Labs sent. Patient oob in chair, mediated for pain, see MAR.
[2024-09-05 12:23] LABS: Mixed Venous O2 Saturation 66.2 %
--- NOTE | 2024-09-05 12:25 | PN.DE.MGMTRT ---
Insulin Management
- -
09/05/2024 Diabetes Management Consult
Patient admitted 08/28 after failed stress test with SOB walking short distance, 08/28 cardiac cath - multivessel disease, 09/04 CABG x 4. Prior to admission was taking Jardiance 10 mg daily, started 1 week before admission, lantus 40 units @ hs and 12
units novolog with breakfast and HS.
Patient is awake, alert and oriented OOB in chair. Able to discuss diabetes care. He currently has a [employer] G7 CGM.
POD 1 on glycemic protocol insulin infusion, per protocol will continue insulin infusion and assess in AM for readiness to transition.
Lengthy discussion with patient regarding insulin timing, explained rapid acting insulin best administered ~ 10 minutes before breakfast and 10 minutes before dinner, not at HS. Patient is agreeable.
Discussed with nurse
Will follow
Diabetes History
- -
Type of Diabetes: 2 requiring insulin
Pre-Admission Diabetes Regimen
09/04/24 09/05/24
16:08 03:02
Creatinine 1.5 H 1.5 H
Lab Results
Hemoglobin A1c 7.0 % (4.0-5.6) H 08/29/24 03:12
Insulin Pump Settings
IP Diabetes Regimen
09/04/24 09/04/24 09/04/24
16:07 16:08 16:58
Glucose 147 H
POC Glucose 135 H 135 H
09/04/24 09/04/24 09/04/24
18:00 19:01 19:53
Glucose
POC Glucose 132 H 138 H 113 H
09/04/24 09/04/24 09/05/24
20:53 22:53 00:54
Glucose
POC Glucose 111 H 103 H 119 H
09/05/24 09/05/24 09/05/24
03:01 03:02 04:54
Glucose 117 H
POC Glucose 110 H 96
0409/05/24 09/05/24
07:01 09:07 11:03
Glucose
POC Glucose 88 100 H 83
09/05/24
12:11
Glucose
POC Glucose 108 H
Meal type: Breakfast
Meal type: Dinner
Amount consumed: 50%
Patient Education
[2024-09-05] MEDS: NSS IV (12:50)
[2024-09-05 13:09] LABS: Glucose - Point of Care 103 mg/dl (70-99)
[2024-09-05 14:04] LABS: Glucose - Point of Care 97 mg/dl (70-99)
[2024-09-05] MEDS: NOVOLOG FLEXPEN 2 UNITS SC ×2 (14:35→18:38)
[2024-09-05 15:01] LABS: Glucose - Point of Care 89 mg/dl (70-99)
[2024-09-05 16:07] LABS: Glucose - Point of Care 132 mg/dl (70-99)
--- NOTE | 2024-09-05 16:15 | PTCARENOTE ---
VS obtained, assessment stable. Remains oob in chair, at bedside.
[2024-09-05 16:19] LABS: Mixed Venous O2 Saturation 63.2 %
[2024-09-05 18:00] LABS: Glucose - Point of Care 110 mg/dl (70-99)
[2024-09-05 20:01] LABS: Glucose - Point of Care 136 mg/dl (70-99)
[2024-09-05 20:16] LABS: Mixed Venous O2 Saturation 61.7 %
--- NOTE | 2024-09-05 20:30 | PTCARENOTE ---
received pt from previous rn. Pt AAOx4, VSS, NSR per tele monitor HR 80s. v wire insulated +1 edema in L hand pox 96% on RA lung sounds diminished Mediastinal chest tubes x 2 placed to -20cm suction w/no air leaks/ crepitus/ tidaling. hypoactive bs,
hassan draining light pink clear sedimented urine. all surgical sites intact. RIJ Cordis/[place]-Jose Alfredo catheter, leveled, flushed, and calibrated piv infusing insulin per glycemic protocol. plan of care discussed questions encouraged.
[2024-09-05] MEDS: BUSPAR 15 MG PO (21:04)
[2024-09-05 22:01] LABS: Glucose - Point of Care 121 mg/dl (70-99)
[2024-09-06] VITALS (18 sets, daily range): BP systolic 104–139; BP diastolic 59–92; PULSE 89; O2SAT 93–96; BMI 31.2
--- NOTE | 2024-09-06 00:30 | PTCARENOTE ---
pt resting comfortably in the chair. VSS, dobutamine gtt restarted. See JUL. NSR per tele monitor HR 70s
[2024-09-06 00:40] LABS: Mixed Venous O2 Saturation 66.8 %
[2024-09-06 00:47] LABS: Glucose - Point of Care 131 mg/dl (70-99)
[2024-09-06 00:59] LABS: Glucose - Point of Care 125 mg/dl (70-99)
[2024-09-06] MEDS: ALBUMIN 5% 250 IV ×2 (01:47→09:44)
[2024-09-06 02:08] LABS: Glucose - Point of Care 136 mg/dl (70-99)
[2024-09-06 03:10] LABS: Glucose - Point of Care 99 mg/dl (70-99)
[2024-09-06 04:13] LABS: Glucose - Point of Care 121 mg/dl (70-99)
--- NOTE | 2024-09-06 04:26 | PTCARENOTE ---
routine labs obtained, VSS, NSR per tele HR 70s assessment remains unchanged
[2024-09-06 04:36] LABS: Hematocrit 34.6 % (39.0-52.0); Hemoglobin 11.7 g/dL (13.0-18.0); Mean Corp Hgb Conc. 33.8 g/dL (33.0-37.0); Mean Corpuscular Hgb 28.7 pg (27.0-31.0); Mean Platelet Volume 12.6 fL (7.4-10.4); Platelet Count 122 10^3/uL (130-400); Red Blood Cell Count 4.07 10^6/uL (4.70-6.10); Red Cell Dist. Width 14.3 % (11.5-14.5); White Blood Cell Count 12.8 10^3/uL (4.8-10.8)
[2024-09-06 04:57] LABS: Blood Urea Nitrogen 31 mg/dl (9-20); Calcium 9.2 mg/dl (8.4-10.2); Carbon Dioxide 24 mmol/L (22-30); Chloride 108 mmol/L (98-107); Estimated Creatinine Clearance 63 ml/min; Glucose 118 mg/dl (70-99); Magnesium 2.2 mg/dl (1.6-2.3); Potassium 4.8 mmol/L (3.5-5.1); Sodium 140 mmol/L (135-145); eGFR 50.71
[2024-09-06] MEDS: TYLENOL 1000 MG PO ×3 (05:49→21:12)
[2024-09-06] MEDS: FLEXERIL 5 MG PO (05:49)
[2024-09-06 05:57] LABS: Glucose - Point of Care 101 mg/dl (70-99)
[2024-09-06] MEDS: ULTRAM 25 MG PO (06:22)
--- NOTE | 2024-09-06 07:30 | PTCARENOTE ---
Assumed care of patient from hotel night auditor RN, AAO x 3 . SR on monitor. Epicardial wire insulated. RT IJ cordis with swan at 43cm, Lines leveled, recalibrated and flushed. Room air 94%. Using IS independently. Chest tubes x 2 to - 20 cm suction.
No air leak or crepitus noted. Abdomen round, distended with positive bowel sounds. Meneses draining elizabeth urine. Trace lower extremity edema appreciated. Dobutamine and insulin infusing.
--- NOTE | 2024-09-06 07:47 | PN.DE.MGMTRT ---
Insulin Management
- -
09/06/2024 Diabetes Management Consult Follow up
Patient admitted 08/28 after failed stress test with SOB walking short distance, 08/28 cardiac cath - multivessel disease, 09/04 CABG x 4. Prior to admission was taking Jardiance 10 mg daily, started 1 week before admission, lantus 40 units @ hs and 12
units novolog with breakfast and HS.
Patient is awake, alert and oriented OOB in chair. Able to discuss diabetes care. He currently has a [employer] G7 CGM.
POD 2 on glycemic protocol insulin infusion, per protocol will continue insulin infusion until HS this evening.
CR 1.5, eGFR 50.71. Will transition to home regimen at 8PM. To receive lantus 40 units subcutaneously, insulin infusion off at 10pm. AC novolog 12 units with breakfast and dinner to start 09/08.
Lengthy discussion with patient regarding insulin timing, explained rapid acting insulin best administered ~ 10 minutes before breakfast and 10 minutes before dinner, not at HS. Patient is agreeable.
Discussed with nurse
Will follow
Diabetes History
- -
Type of Diabetes: 2 requiring insulin
Pre-Admission Diabetes Regimen
09/06/24
04:16
Creatinine 1.5 H
Lab Results
Hemoglobin A1c 7.0 % (4.0-5.6) H 08/29/24 03:12
Insulin Pump Settings
IP Diabetes Regimen
09/05/24 09/05/24 09/05/24
09:07 11:03 12:11
Glucose
POC Glucose 100 H 83 108 H
09/05/24 09/05/24 09/05/24
13:04 14:02 15:00
Glucose
POC Glucose 103 H 97 89
09/05/24 09/05/24 09/05/24
16:05 17:59 19:59
Glucose
POC Glucose 132 H 110 H 136 H
09/05/24 09/05/24 09/06/24
21:57 23:56 00:57
Glucose
POC Glucose 121 H 131 H 125 H
09/06/24 09/06/24 09/06/24
02:06 03:07 04:10
Glucose
POC Glucose 136 H 99 121 H
09/06/24 09/06/24
04:16 05:55
Glucose 118 H
POC Glucose 101 H
Meal type: Lunch
Meal type: Breakfast
Amount consumed: 25%
Amount consumed: 50%
Patient Education
[2024-09-06 07:57] LABS: Glucose - Point of Care 117 mg/dl (70-99)
--- NOTE | 2024-09-06 08:03 | W.PN.CT ---
Today's Communication / Plan
-
-pod #2
-mVO2 66.0. drips: Dobut 0.5, Insulin
-CT outputs: 2 meds 100/270
-R antecubital pruritic rash, no pain or warmth - unlikely cellulitis, more consistent with contact dermatitis from tegaderm. Started Hydrocortisone cream prn
-follow Cr - 1.5 today (preop 1.4-1.5)
-wean off Dobut, then deline
-continue current meds
-encourage IS, OOB
-
Assessment / Plan
-
Impression:
-s/p CABG x 4 (In situ HOANG to LAD, Ao to RSVG to OM sequential to OM, Ao to RSVG to RPDA); LAAE with a [address] Pinto on 09/04/24, pod #2
-intraop LOUIS: LVEF preop was approximately 45%, there was regional wall motion abnormalities towards the inferior lateral wall that appeared to be more sluggish. There was a moderate degree of mitral valve insufficiency that was both functional and
had a component of degenerative disease particularly towards the posterior leaflet which was heavily calcified. The mean gradient across the mitral valve was 3 mmHg. The mean gradient across the aortic valve was 13 mmHg. The LVEF postop was
approximately 50 to 55% and the regional wall motion abnormalities mostly towards the inferior lateral wall had improved. The basal was moving better. The mitral valve insufficiency was mild to moderate. The left atrial appendage was verified to
be free of any thrombus or debris preoperatively and found to be totally occlusive postoperatively.
-Admitted with chest pain and abnormal stress test 08/28/24
-Multivessel CAD S/p POBA distal 95% hazy distal RCA, 08/28/24
-NSTEMI (peak trop 5.1)
-Hx CAD S/P BOB to OM-1 at [facility] 04/29/03
-LVEF 30% with hypokinesis of anterolateral, inferior and inferolateral smith, per TTE 08/28/24; LVEF 40% per LOUIS 4/14
-Moderately severe pulmonary hypertension
-Mild -Moderate MR
-Mild MS
-MIld
-Trace TR
-HTN
-LAFB
-Hyperlipidemia
-T2DM (hgb A1C 7.0, on insulin)
-Class 1 obesity (BMI 30.9)
-CKD 3a (baseline 1.4-1.7)
-BPH (on Flomax)
-Anxiety disorder
-Hx elevated ANCA titer without evidence of active ANCA vasculitis
-S/p Cataracts
-Acute postop blood loss anemia
-Acute postop thrombocytopenia - improved
-Acute postop atelectasis
-Acute postop hypovolemia with subsequent hypervolemia
Discussed patient care with: Nursing and Care Team
Subjective
-
Date of Service: September 06, 2024
Objective Data
-
Lab Results
09/06/24 04:16
09/06/24 04:16
PT 16.6 Sec (11.4-14.6) H 09/04/24 16:08
INR 1.29 09/04/24 16:08
APTT 83.9 Sec (23.4-35.0) H 09/04/24 05:33
Vital Signs
Vital Signs
Temp Pulse Resp BP Pulse Ox
98.8 F 78 19 116/67 95
09/06/24 07:00 09/06/24 07:00 09/06/24 07:00 09/06/24 07:00 09/06/24 07:00
CT Intake/Output/Weight
09/05/24 09/06/24 09/06/24
18:59 06:59 18:59
Intake Total 809.5 / 1357.0 524.6 / 1357.0 22.9 / 22.9
Output Total 835 / 1490 615 / 1490 40 / 40
Balance -25.5 / -133.0 -90.4 / -133.0 -17.1 / -17.1
SaO2: 95
Physical Exam
-
General: Awake and AOx3
Cardiovascular: Regular rate & rhythm, No Murmurs and Rub
Respiratory: Decreased Breath Sounds
Sternum: Stable
Incision: Clean, Dry and Intact
Abdomen: soft, nontender, + decreased bowel sounds
Extremities: No Edema (DPs 1+ b/l)
Data Reviewed
-
Lab Results: Results Reviewed
Medications: Active Meds Reviewed
Chest X-Ray: Report Reviewed and Image Reviewed
ECG: Report Reviewed and Image Reviewed
--- NOTE | 2024-09-06 08:23 | W.PN.INTV ---
Today's Communication / Plan
Recommendations
CXR today shows slight improvement in retrocardiac opacification
Up OOB as tolerated
Pain control
Encourage IS use q1hr while awake
Keep SpO2 >90-94%
Removal of R�IJ cordis per CT surgery team
Mediastinal chest tubes to be removed later this morning
Wean off insulin drip per protocol with goal BG 110�140
Hospital Corpsman services will continue to follow along while patient remains in the CVICU. Once transferred to CVICU�telemetry status then we will sign off at that time.
Assessment
-
Assessment: 68-year-old male former tobacco smoker with a past medical history of CAD s/p stents x 4, DM type II, CKD, hypertension, hypercholesterolemia, BPH, pseudogout, colonic polyps, anxiety and herpes zoster (02/2018) who presents with an
abnormal stress test with SOB + chest pain. He attempted an exercise nuclear stress test with recurrent episodes of chest pressure and high-grade AV block. He was having progressive exertional dyspnea with intermittent episodes of exertional chest
pressure prior to this stress test. In the ER his initial troponin was elevated at 1.34. He was started on a nitroglycerin drip + heparin drip after being given aspirin. Initial EKG showed inferoanterolateral ST depressions. He was admitted to
the IVU for an NSTEMI. Transthoracic echo on 08/28 showed severely reduced LV systolic function with EF 30%, with hypokinesis of the anterolateral, inferior and inferolateral smith. Also stage II diastolic dysfunction, with mild mitral stenosis,
moderate central MR, mild this moderate aortic stenosis with peak/mean gradients of 20/12 mmHg, respectively, with AMANDA of 1.5 cm�, and normal PASP at 28 mmHg. His prior echo in June 2023 showed a preserved LVEF at 55% and his MR at that time
was mild. He underwent a left heart catheterization on 08/28 showing multivessel disease with 75-80% stenosis in the mid LAD, 100 send occlusion at the ostial left circumflex, and hazy 95% distal RCA stenosis, and he underwent plain old balloon
angioplasty of his RCA lesion. Also there was an elevated LVEDP at 32 mmHg. Surgical revascularization was discussed with the patient and he agreed to this procedure. Today he underwent a CABG x 4 + left atrial appendage exclusion with a 35mm
device. There were no complications postoperatively and he was transferred to the CVICU for further care. Hospital Corpsman service is now consulted for additional management/recommendations.
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
Impression:
#Multivessel CAD with NSTEMI/ICM s/p CABG x 4+ left atrial appendage exclusion with a 35mm device � POD #2
#Acute anemia due to above
#Acute thrombocytopenia due to above
#DM type II (uncontrolled - HbA1C: 7 on 08/29/2024) c/b hyperglycemia
#Acute on chronic HFrEF
#Pulmonary hypertension
#History of CAD s/p stenting x 4 (BOB to OM1 - [facility] 2002, BOB to distal LAD + BOB to RCA which overlapped a 3.0 x 16 mm Taxus BOB - [facility] 2005)
#Hypertension
#Hyperlipidemia
#CKD stage IIIa
#Obesity (BMI: 30.9)
#Former tobacco smoker (quit >30 years ago)
Plan:
Patient successfully extubated on 09/04/2024, and is currently on room air breathing comfortably saturating 95%
Maintain SpO2 >90-94%
prn nebulized bronchodilators - not currently bronchospastic
Encourage IS use q1hr while awake
Pulmonary artery catheter parameters will be followed
Pressors/antihypertensive/inotropes/diuretics will be provided as needed
Maintain MAP>65
Replete electrolytes with K>4, Mg>2
Monitor chest tube output (mediastinal chest tubes x 2 to be removed today; pleural CT removed on 09/05)
Monitor hemoglobin
Monitor platelet count and coags
Transfuse blood products as needed to maintain Hb>7g/dL, plt>50k (given post-operative status)
CT surgery managing chest tubes
Monitor blood sugar to maintain euglycemia with goal BG 110-140
Insulin drip per protocol
Aspiration precautions
DVT prophylaxis
Early nutrition
Early mobilization
Hospital Corpsman services will continue to follow along while patient remains in the CVICU. Once transferred to CVICU�telemetry status then we will sign off at that time.
Critical care statement: A total of 39 minutes of critical care time was provided for this patient today. This includes management of ventilator, spontaneous breathing trial, arterial blood gases, pressors, of unstable vital signs, evaluation of the
patient at bedside, reviewing the patient's pertinent medical records including radiographs, microbiology, laboratory evaluations, and discussion with primary team and critical care nursing.
Subjective Dataa
Subjective Data
Date of Service:
Date of Service: September 06, 2024
Chief Complaint: Hospital Corpsman Follow Up
Subjective:
Patient was seen and evaluated today at bedside. Currently on insulin drip at 0.2 units/hr. Heart rate 85, BP 122/59 and saturating 96% on room air. Has postoperative chest discomfort otherwise denies shortness of breath, ABDI, nausea, fevers or
chills.
Review of Systems
General: Other (Negative unless mentioned above)
Objective Data
Data Reviewed
Vital Signs / I&O / Oxygen:
Vital Signs
Temp Pulse Resp BP Pulse Ox
98.2 F 75 16 116/67 95
09/06/24 08:00 09/06/24 08:00 09/06/24 08:00 09/06/24 07:00 09/06/24 08:11
Intake and Output
09/05/24 09/06/24 09/07/24
06:59 06:59 06:59
Intake Total 1234.5 / 1264.7 1334.1 / 1357.0 285.8 / 285.8
Output Total 1320 / 1400 1450 / 1490 100 / 100
Balance -85.5 / -135.3 -115.9 / -133.0 185.8 / 185.8
SaO2 [SIMV] 98
SaO2 95
Nasal Cannula flow liters per 2
minute
Physical Exam
General: Respiratory Distress (negative), Comfortable, Chills (negative), Sweats (negative) and Other (In NAD)
HEENT: Normocephalic, Anicteric and Other (R-IJ cordis in place)
Cardiovascular: S1-S2 and Peripheral Edema (Trace right lower extremity edema, no edema on the left lower extremity)
Respiratory: Wheeze (negative), Crackles (negative), Rhonchi (negative), Non-Labored Respirations, Stridor (negative) and Chest Tube (Mediastinal chest tubes x 2)
GI: Soft, Non Distended, Non Tender and Normal Bowel Sounds
Neurology: AO x 3 and Tremors (negative)
Skin: Warm, Dry, Cyanosis (negative) and Jaundice (negative)
Labs/Micro/Reports
Lab Data
09/06/24 04:16
09/06/24 04:16
[2024-09-06] MEDS: NOVOLOG FLEXPEN SC ×2 (08:38→13:15)
[2024-09-06] MEDS: CRESTOR 40 MG PO (08:38)
[2024-09-06] MEDS: MAGNESIUM OXIDE 500 MG PO ×2 (08:38→20:22)
[2024-09-06] MEDS: BUSPAR 7.5 MG PO (08:38)
[2024-09-06] MEDS: SENOKOT-S 1 TABLET PO ×2 (08:39→20:22)
[2024-09-06] MEDS: PLAVIX 75 MG PO (08:39)
[2024-09-06] MEDS: NEURONTIN 100 MG PO ×3 (08:39→21:13)
[2024-09-06] MEDS: PROTONIX 40 MG PO (08:39)
[2024-09-06] MEDS: BACTROBAN 2% OINTMENT 1 APPLIC NASAL ×2 (08:39→20:23)
[2024-09-06] MEDS: FARXIGA 10 MG PO (08:39)
[2024-09-06] MEDS: LOW STRENGTH ASPIRIN 81 MG PO (08:39)
[2024-09-06] MEDS: PACERONE 200 MG PO ×3 (08:39→21:13)
[2024-09-06] MEDS: HYDROCORTISONE 1% CREAM 1 APPLIC TOPICAL (08:40)
--- NOTE | 2024-09-06 09:06 | W.PN.CARDCBS ---
Addendum entered and electronically signed by Carlos Michel MD 09/06/24 11:06:
I saw and examined the patient.
The INFANTRY INDIRECT FIRE CREWMEMBER or PA's note was reviewed and I agree with the note.
Comment: General: Well developed, well nourished in NAD.
Neck: Supple, no JVD, HJR, carotids +2 B/L, no bruits bilaterally.
Heart: Non displaced PMI, RRR, no murmurs, No S3, S4, no rubs.
Lungs: Scattered rhonchi
Sternal dressings noted
Extremities: No clubbing, cyanosis or edema bilaterally.
Neuro: Grossly nonfocal, awake, alert and oriented x3.
Remains in sinus rhythm. Stable cardiology status status post CABG. Discussed with CT surgery.
Original Note:
Today's Communication / Plan
-
Continue post op care
Impression / Plan
-
PCP: Dr. Cornelius Rodriguez
Card: Dr. Jonas
Impression:
Admitted with chest pain and abnormal stress test 08/28/24
NSTEMI, troponin 5.1 ng/ml
CAD
s/p 2.5 mm BOB to OM-1 at [facility] 04/29/03
s/p cath with patent previously placed OM-1 stent and then 2.5 mm Taxus to distal LAD and 3.5 mm Taxus to distal RCA 01/19/06
s/p cath with POBA of hazy 95% distal RCA stenosis, residual 75 to 80% stenosis in the mid LAD and 100% occlusion at the ostium of the circumflex by cardiac cath 08/28/2024
s/p CABG x 4 (in situ HOANG to LAD, AO to R SVG to OM sequential to OM, AO to RSVG to RPDA), AISHWARYA clip 09/04/2024
ICM EF 30% by echo 08/28/2024
Mild to mod with peak/mean 20/12 mmHg and possible fusion of the noncoronary and left coronary cusps by echo 08/28/2024
Moderate central MR
HTN
LAFB
Hyperlipidemia
DM 2
CKD 3a, baseline Cre 1.5
h/o elevated ANCA titer without evidence of active ANCA vasculitis
Cath/PCI 08/28/2024: LM:Ok, LAD: Focal 75-80% mid LAD after D2, LCX: 100% occluded, RCA: Hazy 95% stenosis at crux of vessel. RETURNING OFFICER with 2.0x20 mm to 16 dain w residual 40-50%. Could NOT deliver stent
Echo 06/23/2023: EF 55 to 60%, normal RV size and function, mild MR, calcified aortic valve with restricted leaflet motion and possible fusion of the noncoronary and left coronary cusps, mild with peak/mean 22/13 mmHg
ECHO 08/28/2024: EF 30%, hypokinesis anterolateral, inferior and inferolateral smith, stage II diastolic dysfunction, mild MS peak/mean 15/6 mmHg, moderate central MR, possible fusion between noncoronary and left coronary cusps, mild to moderate
with peak/mean 20/12 mmHg, AMANDA 1.5 cm sq
[facility] ECHO 09/02/2024: LV: global HK with mild-moderate reduced EF estimated 40%. RV: Normal, LA: Mildly dilated, RA: Normal, AISHWARYA no thrombus, MV: Prolapse of anterior leaflet with mild-mild MR. Mild MS with mean gradient 3, AV: Mild with mean
gradient of 9. No AI. TV: Trace TR
Plan:
-Presented w/ chest pain and abnormal stress test 08/28. Trop peaked at 5.1. C 08/28 noted MV CAD as outlined above.
-Ultimately underwent CABG x 4 (HOANG to LAD, AO to R SVG to OM sequential to OM, AO to RSVG to RPDA) 09/04/2024.
-POD #2. Doing well. Still feeling weak. On dobutamine @0.5.
-Continue aspirin, plavix. Hgb stable at 11.7
-Patient was taking Toprol 100mg daily to admission. BB on hold while on dobutamine.
-Continue crestor 40mg daily
-OP lisinopril, triamterene/HCTZ, finerenone, and jardiance on hold. Resume as able. Creat 1.5.
-ICM noted. EF 30% on echo 08/28/24, but a bit better at 40-45% by LOUIS 09/02/24 and same on 09/04/24 intra-op study
-Continue post op care.
HPI: Patient came to the ER today with chest pain while attempting a stress test at the [facility] and cardiology has been asked to see the patient in the ER. Patient was seen in the office on 08/15/2024 with complaints of CP and LOZA. Patient has a
history of CAD as outlined above including OM-1 PCI at [facility] in 2002. Last cath was in 2005 and at that time the OM-1 stent was patent but there was new distal LAD and distal RCA disease both of which were treated with Taxus BOB. Patient takes
aspirin 81 mg daily as an outpatient, but missed the dose today while he was NPO for stress test. Patient attempted exercise nuclear stress test at the [facility] and at the end of stage I and the beginning of stage II he has started with increased CP and
ECG showed new 3-1 AV block. Exercise was stopped before patient reached 85% of MPHR. Chest pain was waxing and waning. Patient completed second set of nuclear images and final report is pending. Patient had ongoing pain and was referred to the
ER where initial troponin was elevated at 1.34. When I saw the patient he continued with a 5 out of 10 CP and was in the process of receiving NTG gtt, aspirin chewable and heparin gtt.
Progress Note - Box Feeder
Subjective
Date of Service: September 06, 2024
Feeling weak, but improving.
Objective
Labs:
09/06/24 04:16
09/06/24 04:16
Labs
Hgb 11.7 g/dL (13.0-18.0) L 09/06/24 04:16
Hct 34.6 % (39.0-52.0) L 09/06/24 04:16
Plt Count 122 10^3/uL (130-400) L 09/06/24 04:16
PT 16.6 Sec (11.4-14.6) H 09/04/24 16:08
INR 1.29 09/04/24 16:08
APTT 83.9 Sec (23.4-35.0) H 09/04/24 05:33
Sodium 140 mmol/L (135-145) 09/06/24 04:16
Potassium 4.8 mmol/L (3.5-5.1) 09/06/24 04:16
BUN 31 mg/dl (9-20) H 09/06/24 04:16
Creatinine 1.5 mg/dL (0.7-1.3) H 09/06/24 04:16
Glucose 118 mg/dl (70-99) H 09/06/24 04:16
Vital Signs and I&O:
Vital Signs
Temp Pulse Resp BP Pulse Ox
98.2 F 75 16 116/67 95
09/06/24 08:00 09/06/24 08:00 09/06/24 08:00 09/06/24 07:00 09/06/24 08:11
Vital Signs
Temp Pulse Resp BP Pulse Ox
98.2 F 75 16 116/67 95
09/06/24 08:00 09/06/24 08:00 09/06/24 08:00 09/06/24 07:00 09/06/24 08:11
Intake & Output
09/04/24 09/05/24 09/06/24 09/07/24
06:59 06:59 06:59 06:59
Intake Total 480 / 480 1234.5 / 1264.7 1334.1 / 1357.0 285.8 / 285.8
Output Total 450 / 450 1320 / 1400 1450 / 1490 100 / 100
Balance 30 / 30 -85.5 / -135.3 -115.9 / -133.0 185.8 / 185.8
Physical Exam
Physical Exam
GEN: NAD. AAOx3
HEENT: EOMI, MMM
LUNGS:decreased BS b/l, no wheezes
CV: Reg, S1/S2, 1/6 syst murmur
EXT: No clubbing, cyanosis, or edema B/L
NEURO: Gross non-focal
SKIN: Warm, dry
[2024-09-06 10:16] LABS: Glucose - Point of Care 98 mg/dl (70-99)
--- NOTE | 2024-09-06 10:46 | PTCARENOTE ---
Dobutamine turned off per MD order. RT IJ swan removed , followed by mediastinal chest tubes x 2. Pt tolerated w/o issue. Meneses cath removed and pt instructed on needing specimen once able to void. Resting in bed after
[2024-09-06 12:15] LABS: Glucose - Point of Care 81 mg/dl (70-99)
--- NOTE | 2024-09-06 12:15 | PTCARENOTE ---
Ambulated in room with RN, passing flatus , poor appetite. VSS. Assessment otherwise unchanged from prior.
[2024-09-06 14:20] LABS: Glucose - Point of Care 184 mg/dl (70-99)
--- NOTE | 2024-09-06 14:47 | CM ---
Chart reviewed. Patient is independent of ADLS, lives with her in a 3 [address], 4 CLOTILDE, 0 DME. Plan is for the patient to return home with CT Transitional RN. CM to follow
[2024-09-06] MEDS: NSS IV (14:49)
[2024-09-06 15:43] LABS: Glucose - Point of Care 250 mg/dl (70-99)
[2024-09-06] MEDS: ULTRAM 50 MG PO (15:48)
[2024-09-06 17:07] LABS: Glucose - Point of Care 214 mg/dl (70-99)
[2024-09-06 18:03] LABS: Glucose - Point of Care 147 mg/dl (70-99)
[2024-09-06] MEDS: NOVOLOG FLEXPEN 4 UNITS SC (18:04)
[2024-09-06 19:08] LABS: Glucose - Point of Care 116 mg/dl (70-99)
[2024-09-06 20:20] LABS: Glucose - Point of Care 150 mg/dl (70-99)
[2024-09-06] MEDS: LANTUS 0.4 UNITS SC (20:24)
--- NOTE | 2024-09-06 20:30 | PTCARENOTE ---
received pt from previous rn. Pt AAOx4, VSS, NSR per tele monitor HR 80s. v wire insulated +1 edema in L hand pox 96% on RA lung sounds diminished. pt passing flatus. voids appropriately in urinal. all surgical sites intact. RIJ Cordis infusing KVO.
PIV infusing insulin per glycemic protocol. plan of care discussed questions encouraged.
[2024-09-06 21:09] LABS: Glucose - Point of Care 229 mg/dl (70-99)
[2024-09-06] MEDS: BUSPAR 15 MG PO (21:12)
--- NOTE | 2024-09-06 22:00 | PTCARENOTE ---
glycemic protocol d/c'd per order, will continue with AC HS BG checks
[2024-09-06 22:06] LABS: Glucose - Point of Care 178 mg/dl (70-99)
--- NOTE | 2024-09-07 | PTCARENOTE ---
VSS, NSR per tele monitor HR 80s. pt resting comfortably in bed assessment remains unchanged
[2024-09-07 03:34] VITALS: BP 126/73
--- NOTE | 2024-09-07 04:11 | W.PN.CT ---
Today's Communication / Plan
-
-pod #3
-doing well, no issues overnight
-weaned off O2 - pOx 94% on RA
-follow Cr (preop 1.4-1.5)
-continue current meds
-encourage IS, OOB, ambulate
Assessment / Plan
-
Impression:
-s/p CABG x 4 (In situ HOANG to LAD, Ao to RSVG to OM sequential to OM, Ao to RSVG to RPDA); LAAE with a [address] Pinto on 09/04/24, pod #3
-intraop LOUIS: LVEF preop was approximately 45%, there was regional wall motion abnormalities towards the inferior lateral wall that appeared to be more sluggish. There was a moderate degree of mitral valve insufficiency that was both functional and
had a component of degenerative disease particularly towards the posterior leaflet which was heavily calcified. The mean gradient across the mitral valve was 3 mmHg. The mean gradient across the aortic valve was 13 mmHg. The LVEF postop was
approximately 50 to 55% and the regional wall motion abnormalities mostly towards the inferior lateral wall had improved. The basal was moving better. The mitral valve insufficiency was mild to moderate. The left atrial appendage was verified to
be free of any thrombus or debris preoperatively and found to be totally occlusive postoperatively.
-Admitted with chest pain and abnormal stress test 08/28/24
-Multivessel CAD S/p POBA distal 95% hazy distal RCA, 08/28/24
-NSTEMI (peak trop 5.1)
-Hx CAD S/P BOB to OM-1 at [facility] 04/29/03
-LVEF 30% with hypokinesis of anterolateral, inferior and inferolateral smith, per TTE 08/28/24; LVEF 40% per [facility] 09/02
-Moderately severe pulmonary hypertension
-Mild -Moderate MR
-Mild MS
-MIld
-Trace TR
-HTN
-LAFB
-Hyperlipidemia
-T2DM (hgb A1C 7.0, on insulin)
-Class 1 obesity (BMI 30.9)
-CKD 3a (baseline 1.4-1.7)
-BPH (on Flomax)
-Anxiety disorder
-Hx elevated ANCA titer without evidence of active ANCA vasculitis
-S/p Cataracts
-Acute postop blood loss anemia
-Acute postop thrombocytopenia - improved
-Acute postop atelectasis
-Acute postop hypovolemia with subsequent hypervolemia
Discussed patient care with: Nursing and Care Team
Subjective
-
Date of Service: September 07, 2024
Objective Data
-
PT 16.6 Sec (11.4-14.6) H 09/04/24 16:08
INR 1.29 09/04/24 16:08
APTT 83.9 Sec (23.4-35.0) H 09/04/24 05:33
Vital Signs
Vital Signs
Temp Pulse Resp BP Pulse Ox
98.3 F 88 20 126/73 94
09/07/24 03:45 09/07/24 03:34 09/07/24 03:45 09/07/24 03:34 09/07/24 03:45
CT Intake/Output/Weight
09/06/24 09/06/24 09/07/24
06:59 18:59 06:59
Intake Total 524.6 / 1357.0 1321.4 / 1321.4
Output Total 615 / 1490 450 / 850 400 / 850
Balance -90.4 / -133.0 871.4 / 471.4 -400 / 471.4
SaO2: 94
Physical Exam
-
General: Awake and AOx3
Cardiovascular: Regular rate & rhythm, No Murmurs and Rub
Respiratory: Decreased Breath Sounds
Sternum: Stable
Incision: Clean, Dry and Intact
Extremities: Edema +1
Abdomen: soft, nontender, nondistended, + bowel sounds
Data Reviewed
-
Lab Results: Results Reviewed
Medications: Active Meds Reviewed
Chest X-Ray: Report Reviewed and Image Reviewed
ECG: Report Reviewed and Image Reviewed
--- NOTE | 2024-09-07 04:13 | PTCARENOTE ---
routine labs obtained. VSS NSR per tele monitor. HR 80s. pt assisted to the bathroom and back to chair w/ no incident. assessment remains unchanged
[2024-09-07 04:19] LABS: Hematocrit 36.9 % (39.0-52.0); Hemoglobin 12.2 g/dL (13.0-18.0); Mean Corp Hgb Conc. 33.1 g/dL (33.0-37.0); Mean Corpuscular Hgb 28.2 pg (27.0-31.0); Mean Corpuscular Volume 85.4 fL (80.0-94.0); Mean Platelet Volume 12.5 fL (7.4-10.4); Platelet Count 143 10^3/uL (130-400); Red Blood Cell Count 4.32 10^6/uL (4.70-6.10); Red Cell Dist. Width 14.6 % (11.5-14.5); White Blood Cell Count 14.4 10^3/uL (4.8-10.8)
[2024-09-07 04:33] VITALS: BMI 31.1
[2024-09-07 04:46] LABS: Blood Urea Nitrogen 28 mg/dl (9-20); Calcium 9.2 mg/dl (8.4-10.2); Carbon Dioxide 22 mmol/L (22-30); Chloride 107 mmol/L (98-107); Estimated Creatinine Clearance 68 ml/min; Glucose 163 mg/dl (70-99); Magnesium 2.2 mg/dl (1.6-2.3); Potassium 4.5 mmol/L (3.5-5.1); Sodium 142 mmol/L (135-145); eGFR 55.09
[2024-09-07] MEDS: TYLENOL 1000 MG PO ×3 (05:57→21:42)
[2024-09-07 06:01] LABS: Glucose - Point of Care 138 mg/dl (70-99)
[2024-09-07 07:46] VITALS: BP 112/65
--- NOTE | 2024-09-07 08:04 | PTCARENOTE ---
Assumed care of patient from police shift commander RN. AAO x 3 sitting up in the chair. Denies complaint at present. SR on monitor. Epicardial wire insulated. Room air 98%, Using IS to 1250, Productive cough this am with thick almodovar sputum. Abdomen obese,
round, with positive bowel sounds t/o, passing flatus. Voiding w/o issue. Surgical sites c,d,i. Pulses palpable. Plan for day discussed.
[2024-09-07] MEDS: NOVOLOG FLEXPEN SC ×3 (08:12→17:46)
[2024-09-07 08:13] LABS: Glucose - Point of Care 133 mg/dl (70-99)
[2024-09-07] MEDS: NOVOLOG FLEXPEN-LOW RESISTANCE SC ×2 (08:13→13:26)
[2024-09-07] MEDS: BACTROBAN 2% OINTMENT 1 APPLIC NASAL ×2 (08:14→21:42)
[2024-09-07] MEDS: LOW STRENGTH ASPIRIN 81 MG PO (08:14)
[2024-09-07] MEDS: PROTONIX 40 MG PO (08:14)
[2024-09-07] MEDS: FARXIGA 10 MG PO (08:14)
[2024-09-07] MEDS: MAGNESIUM OXIDE 500 MG PO ×2 (08:15→19:44)
[2024-09-07] MEDS: PLAVIX 75 MG PO (08:15)
[2024-09-07] MEDS: PACERONE 200 MG PO ×3 (08:15→21:42)
[2024-09-07] MEDS: SENOKOT-S 1 TABLET PO ×2 (08:15→19:43)
[2024-09-07] MEDS: BUSPAR 7.5 MG PO (08:15)
[2024-09-07] MEDS: CRESTOR 40 MG PO (08:15)
[2024-09-07] MEDS: NEURONTIN 100 MG PO ×3 (08:15→21:42)
[2024-09-07 09:12] VITALS: BP 128/64
[2024-09-07 09:21] VITALS: BP 137/69
[2024-09-07 09:24] VITALS: BP 128/64; BP 137/69; PULSE 90; O2SAT 94; O2SAT 98
[2024-09-07] MEDS: NOVOLOG FLEXPEN 12 UNITS SC ×3 (10:12→17:45)
[2024-09-07 12:16] VITALS: BP 120/66
[2024-09-07 12:34] LABS: Glucose - Point of Care 119 mg/dl (70-99)
[2024-09-07] MEDS: NON-FORMULARY ITEM PO ×4 (12:55→13:31)
[2024-09-07] MEDS: NSS IV (12:58)
--- NOTE | 2024-09-07 13:03 | PTCARENOTE ---
VSS, Ambulated with RN x 2 . Denies complaint, appetite better today. Assessment otherwise unchanged from prior.
[2024-09-07] MEDS: NON-FORMULARY ITEM 1 MG PO (13:15)
[2024-09-07] MEDS: NON-FORMULARY ITEM 20 MG PO (13:16)
--- NOTE | 2024-09-07 15:19 | PTCARENOTE ---
RT IJ cordis removed, Hemostasis achieved. Ambulated entire loop around unit w/o issue. VSS. Sitting up in the chair. Assessment otherwise unchanged from prior.
[2024-09-07] MEDS: HYDROCORTISONE 1% CREAM 1 APPLIC TOPICAL (15:38)
[2024-09-07 17:43] LABS: Glucose - Point of Care 216 mg/dl (70-99)
[2024-09-07] MEDS: NOVOLOG FLEXPEN-LOW RESISTANCE 2 UNITS SC (17:46)
[2024-09-07] MEDS: LOPRESSOR 25 MG PO (19:43)
--- NOTE | 2024-09-07 20:00 | PTCARENOTE ---
Received pt from [facility]. pt is POD #3 from CABGx4 and AISHWARYA Clip with Dr. Pinto. pt is AAOx4, denies pain. NSR/ST on monitor. VSS. heart sounds audible, radial and DP pulses palpable, trace CRISTINA. lung diminished st b/l bases, spo2 is 97% on RA. + bs
x4 quadrants, abdomen soft, round, non tender. pt voiding clear yellow urine. surgical sites maintained. PIV maintained. plan is for D/C tomorrow, 09/08.
[2024-09-07] MEDS: BUSPAR 15 MG PO (21:42)
[2024-09-07] MEDS: LANTUS 0.4 UNITS SC (21:45)
[2024-09-07 21:47] LABS: Glucose - Point of Care 220 mg/dl (70-99)
--- NOTE | 2024-09-08 | PTCARENOTE ---
Pt assessment unchanged. NSR on monitor. VSS. call harmon within reach. will continue to monitor.
[2024-09-08 00:05] VITALS: BP 109/71
[2024-09-08 03:42] VITALS: BMI 31.1
[2024-09-08 03:52] VITALS: BP 124/72
[2024-09-08 03:59] LABS: Hematocrit 36.5 % (39.0-52.0); Hemoglobin 12.2 g/dL (13.0-18.0); Mean Corp Hgb Conc. 33.4 g/dL (33.0-37.0); Mean Corpuscular Hgb 28.3 pg (27.0-31.0); Mean Corpuscular Volume 84.7 fL (80.0-94.0); Mean Platelet Volume 12.1 fL (7.4-10.4); Platelet Count 157 10^3/uL (130-400); Red Blood Cell Count 4.31 10^6/uL (4.70-6.10); Red Cell Dist. Width 14.3 % (11.5-14.5); White Blood Cell Count 11.4 10^3/uL (4.8-10.8)
--- NOTE | 2024-09-08 04:00 | PTCARENOTE ---
Pt assessment unchanged. NSR on monitor. VSS. labs drawn and sent. will continue to monitor.
[2024-09-08 04:16] LABS: Blood Urea Nitrogen 31 mg/dl (9-20); Calcium 9.1 mg/dl (8.4-10.2); Carbon Dioxide 25 mmol/L (22-30); Chloride 109 mmol/L (98-107); Estimated Creatinine Clearance 68 ml/min; Glucose 158 mg/dl (70-99); Magnesium 2.4 mg/dl (1.6-2.3); Potassium 4.4 mmol/L (3.5-5.1); Sodium 142 mmol/L (135-145); eGFR 55.09
--- NOTE | 2024-09-08 06:04 | W.PN.CT ---
Today's Communication / Plan
-
-pod #4
-doing well, no issues overnight, ambulating and doing stairs yesterday
-off dobutamine, restarted lopressor 25 mg last night
-follow Cr (preop 1.4-1.5)
-continue Crestor, amio, asa, plavix, Farxiga, lopressor
-follow up TTE Monday for EF 45-50% on dobutamine
-encourage IS, OOB, ambulate
Assessment / Plan
-
Impression:
-s/p CABG x 4 (In situ HOANG to LAD, Ao to RSVG to OM sequential to OM, Ao to RSVG to RPDA); LAAE with a [address] Pinto on 09/04/24, pod #4
-intraop L[facility]: LVEF preop was approximately 45%, there was regional wall motion abnormalities towards the inferior lateral wall that appeared to be more sluggish. There was a moderate degree of mitral valve insufficiency that was both functional and
had a component of degenerative disease particularly towards the posterior leaflet which was heavily calcified. The mean gradient across the mitral valve was 3 mmHg. The mean gradient across the aortic valve was 13 mmHg. The LVEF postop was
approximately 50 to 55% and the regional wall motion abnormalities mostly towards the inferior lateral wall had improved. The basal was moving better. The mitral valve insufficiency was mild to moderate. The left atrial appendage was verified to
be free of any thrombus or debris preoperatively and found to be totally occlusive postoperatively.
-Admitted with chest pain and abnormal stress test 08/28/24
-Multivessel CAD S/p POBA distal 95% hazy distal RCA, 08/28/24
-NSTEMI (peak trop 5.1)
-Hx CAD S/P BOB to OM-1 at [facility] 04/29/03
-LVEF 30% with hypokinesis of anterolateral, inferior and inferolateral smith, per TTE 08/28/24; LVEF 40% per LOUIS 09/02
-Moderately severe pulmonary hypertension
-Mild -Moderate MR
-Mild MS
-MIld
-Trace TR
-HTN
-LAFB
-Hyperlipidemia
-T2DM (hgb A1C 7.0, on insulin)
-Class 1 obesity (BMI 30.9)
-CKD 3a (baseline 1.4-1.7)
-BPH (on Flomax)
-Anxiety disorder
-Hx elevated ANCA titer without evidence of active ANCA vasculitis
-S/p Cataracts
-Acute postop blood loss anemia
-Acute postop thrombocytopenia - improved
-Acute postop atelectasis
-Acute postop hypovolemia with subsequent hypervolemia
Subjective
-
Date of Service: September 08, 2024
Objective Data
-
Lab Results
09/08/24 03:42
09/08/24 03:42
PT 16.6 Sec (11.4-14.6) H 09/04/24 16:08
INR 1.29 09/04/24 16:08
APTT 83.9 Sec (23.4-35.0) H 09/04/24 05:33
Vital Signs
Vital Signs
Temp Pulse Resp BP Pulse Ox
98.5 F 88 18 120/66 96
09/08/24 03:52 09/07/24 13:00 09/08/24 03:52 09/07/24 12:16 09/08/24 03:52
CT Intake/Output/Weight
09/07/24 09/07/24 09/08/24
06:59 18:59 06:59
Intake Total 390 / 390
Output Total 600 / 1050 150 / 625 475 / 625
Balance -600 / 271.4 240 / -235 -475 / -235
SaO2: 96
Physical Exam
-
General: Awake, Oriented and AOx3
Cardiovascular: Regular rate & rhythm, No Murmurs and No Rub
Respiratory: Clear and Equal
Sternum: Stable
Incision: Clean and Intact
Extremities: Edema +1
Data Reviewed
-
Lab Results: Results Reviewed
Medications: Active Meds Reviewed
Chest X-Ray: Report Reviewed
CT Scan: Report Reviewed
ECG: Report Reviewed
[2024-09-08] MEDS: TYLENOL 1000 MG PO ×3 (06:38→21:47)
[2024-09-08 07:33] VITALS: BP 109/93
[2024-09-08 07:39] LABS: Glucose - Point of Care 158 mg/dl (70-99)
--- NOTE | 2024-09-08 07:41 | PTCARENOTE ---
VS downloaded for previous shift
--- NOTE | 2024-09-08 07:41 | PTCARENOTE ---
Assumed care of patient from steward/stewardess night RN. AAO x 3, sitting up in the chair and ambulating around room on own w/o issues. SR on monitor. Epicardial wire insulated. Room air 97%, Using IS to 1250. Occasional cough with sputum. Abdomen soft
and non tender, passing large amounts of flatus. Voiding w/o issue. Surgical sites well approximated and intact. Trace lower extremity edema appreciated. Pulses palpable. Plan for day discussed.
[2024-09-08] MEDS: NOVOLOG FLEXPEN SC ×3 (07:50→17:19)
[2024-09-08] MEDS: NOVOLOG FLEXPEN-LOW RESISTANCE 1 UNITS SC (07:50)
[2024-09-08] MEDS: BUSPAR 7.5 MG PO (07:51)
[2024-09-08] MEDS: LOPRESSOR 25 MG PO ×2 (07:51→20:17)
[2024-09-08] MEDS: NEURONTIN 100 MG PO ×3 (07:51→21:47)
[2024-09-08] MEDS: FARXIGA 10 MG PO (07:51)
[2024-09-08] MEDS: PACERONE 200 MG PO ×3 (07:51→21:47)
[2024-09-08] MEDS: MAGNESIUM OXIDE 500 MG PO ×2 (07:51→20:17)
[2024-09-08] MEDS: PLAVIX 75 MG PO (07:51)
[2024-09-08] MEDS: LOW STRENGTH ASPIRIN 81 MG PO (07:51)
[2024-09-08] MEDS: PROTONIX 40 MG PO (07:51)
[2024-09-08] MEDS: CRESTOR 40 MG PO (07:51)
[2024-09-08] MEDS: SENOKOT-S 1 TABLET PO ×2 (07:51→20:18)
[2024-09-08] MEDS: NON-FORMULARY ITEM 1 MG PO (07:52)
[2024-09-08] MEDS: BACTROBAN 2% OINTMENT 1 APPLIC NASAL (08:37)
[2024-09-08 12:16] VITALS: BP 98/77
--- NOTE | 2024-09-08 12:30 | PTCARENOTE ---
Ambulating in hallway w/o issue on own at [place]. VSS, Assessment otherwise unchanged from prior.
[2024-09-08 13:23] LABS: Glucose - Point of Care 104 mg/dl (70-99)
[2024-09-08] MEDS: NOVOLOG FLEXPEN-LOW RESISTANCE SC (13:24)
[2024-09-08] MEDS: NSS IV (13:24)
--- NOTE | 2024-09-08 15:29 | PTCARENOTE ---
Ambulating in hallway with family. Sitting down in the lounge. Denies pain. Shaved face in bathroom, Denies complaint. Assessment otherwise unchanged from prior.
[2024-09-08 17:00] VITALS: BP 133/74
[2024-09-08 17:18] LABS: Glucose - Point of Care 240 mg/dl (70-99)
[2024-09-08] MEDS: NOVOLOG FLEXPEN 12 UNITS SC (17:19)
[2024-09-08] MEDS: NOVOLOG FLEXPEN-LOW RESISTANCE 2 UNITS SC (17:20)
--- NOTE | 2024-09-08 20:00 | PTCARENOTE ---
assumed care of pt from previous RN. pt A&Ox4, resting in chair at time of assessment. SR on tele-monitor. temp epicardial v-wires insulated. POX 97% on RA. abd s/n, round, obese. +BS. pt confirms passing gas. no BM. voiding in urinal. all surgical
sites stable, CDI. PIV intact. see worklist for complete nursing assessment, interventions, VS, and I&Os.
[2024-09-08 20:14] VITALS: BP 123/45
[2024-09-08] MEDS: BUSPAR 15 MG PO (21:47)
[2024-09-08] MEDS: LANTUS 0.4 UNITS SC (21:47)
[2024-09-08 21:48] LABS: Glucose - Point of Care 153 mg/dl (70-99)
[2024-09-09] VITALS (8 sets, daily range): BP systolic 109–126; BP diastolic 67–78; PULSE 68; O2SAT 98–100; BMI 31.2
--- NOTE | 2024-09-09 | PTCARENOTE ---
assessment remains unchanged. VSS.
--- NOTE | 2024-09-09 04:45 | PTCARENOTE ---
no acute changes. VSS. AM labs collected and sent.
[2024-09-09 05:10] LABS: Hematocrit 34.7 % (39.0-52.0); Hemoglobin 11.6 g/dL (13.0-18.0); Mean Corp Hgb Conc. 33.4 g/dL (33.0-37.0); Mean Corpuscular Hgb 28.6 pg (27.0-31.0); Mean Corpuscular Volume 85.5 fL (80.0-94.0); Mean Platelet Volume 12.2 fL (7.4-10.4); Platelet Count 190 10^3/uL (130-400); Red Blood Cell Count 4.06 10^6/uL (4.70-6.10); Red Cell Dist. Width 14.2 % (11.5-14.5); White Blood Cell Count 10.3 10^3/uL (4.8-10.8)
[2024-09-09 05:29] LABS: Blood Urea Nitrogen 32 mg/dl (9-20); Calcium 9.1 mg/dl (8.4-10.2); Carbon Dioxide 27 mmol/L (22-30); Chloride 106 mmol/L (98-107); Estimated Creatinine Clearance 63 ml/min; Glucose 133 mg/dl (70-99); Potassium 4.6 mmol/L (3.5-5.1); Sodium 141 mmol/L (135-145); eGFR 50.71
--- NOTE | 2024-09-09 05:37 | W.PN.CT ---
Today's Communication / Plan
-
-pod #5
-doing well, no issues overnight, ambulating well up stairs
-tolerating BB now that he's off dobutamine since 09/06, currently 25 mg Lopressor
-follow Cr (preop 1.4-1.5), 1.5 today
-continue Crestor, Amio, Asa, Plavix, Farxiga, Lopressor, Protonix
-follow up TTE Monday, EF 45-50% on dobutamine post op
-encourage IS, OOB, ambulate
Assessment / Plan
-
Impression:
-s/p CABG x 4 (In situ HOANG to LAD, Ao to RSVG to OM sequential to OM, Ao to RSVG to RPDA); LAAE with a [address] Pinto on 09/04/24, pod #5
-intraop [facility]IS: LVEF preop was approximately 45%, there was regional wall motion abnormalities towards the inferior lateral wall that appeared to be more sluggish. There was a moderate degree of mitral valve insufficiency that was both functional and
had a component of degenerative disease particularly towards the posterior leaflet which was heavily calcified. The mean gradient across the mitral valve was 3 mmHg. The mean gradient across the aortic valve was 13 mmHg. The LVEF postop was
approximately 50 to 55% and the regional wall motion abnormalities mostly towards the inferior lateral wall had improved. The basal was moving better. The mitral valve insufficiency was mild to moderate. The left atrial appendage was verified to
be free of any thrombus or debris preoperatively and found to be totally occlusive postoperatively.
-Admitted with chest pain and abnormal stress test 08/28/24
-Multivessel CAD S/p POBA distal 95% hazy distal RCA, 08/28/24
-NSTEMI (peak trop 5.1)
-Hx CAD S/P BOB to OM-1 at [facility] 04/29/03
-LVEF 30% with hypokinesis of anterolateral, inferior and inferolateral smith, per TTE 08/28/24; LVEF 40% per [facility] 4/14
-Moderately severe pulmonary hypertension
-Mild -Moderate MR
-Mild MS
-MIld
-Trace TR
-HTN
-LAFB
-Hyperlipidemia
-T2DM (hgb A1C 7.0, on insulin)
-Class 1 obesity (BMI 30.9)
-CKD 3a (baseline 1.4-1.7)
-BPH (on Flomax)
-Anxiety disorder
-Hx elevated ANCA titer without evidence of active ANCA vasculitis
-S/p Cataracts
-Acute postop blood loss anemia
-Acute postop thrombocytopenia - improved
-Acute postop atelectasis
-Acute postop hypovolemia with subsequent hypervolemia
Subjective
-
Date of Service: September 09, 2024
Objective Data
-
Lab Results
09/09/24 04:36
09/09/24 04:35
PT 16.6 Sec (11.4-14.6) H 09/04/24 16:08
INR 1.29 09/04/24 16:08
APTT 83.9 Sec (23.4-35.0) H 09/04/24 05:33
Vital Signs
Vital Signs
Temp Pulse Resp BP Pulse Ox
98.2 F 73 16 116/75 98
09/09/24 04:45 09/09/24 04:27 09/09/24 04:45 09/09/24 04:27 09/09/24 04:45
CT Intake/Output/Weight
09/08/24 09/08/24 09/09/24
06:59 18:59 06:59
Intake Total 1080 / 1080
Output Total 600 / 750
Balance -600 / -360 1080 / 1080
SaO2: 98
Physical Exam
-
General: Awake, Oriented and AOx3
Cardiovascular: Regular rate & rhythm, No Murmurs and No Rub
Respiratory: Clear and Equal
Sternum: Stable
Incision: Clean and Dry
Extremities: No Edema and No Erythema
Data Reviewed
-
Lab Results: Results Reviewed
Medications: Active Meds Reviewed
CT Scan: Report Reviewed
ECG: Report Reviewed
[2024-09-09] MEDS: TYLENOL 1000 MG PO (07:08)
--- NOTE | 2024-09-09 08:00 | PTCARENOTE ---
Assumed care of patient. Walking rounds completed with previous RN. Pt assessed while pt was sitting in the chair. Pt alert and oriented x4. Denies pain, shortness of breath, and nausea. Independent in the room. NSR on tele with rates in the 70s. BP
110/75. Bilateral radial pulses palpable. Bilateral DP pulses weakly palpable. No edema noted. POX 98% on RA. Lungs clear throughout. Pt reports occasional productive cough with almodovar sputum. IS encouraged-1500mL achieved. Abdomen soft, round, obese,
nontender. +BS. Pt refuses additional stool softners. Pt voiding independently in the bathroom. 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 Right groin puncture approximated, SONIDO. Right SVG harvest approximated SONIDO.
Left arm slight dependent ecchymosis. Right arm PIV intact. See MAR for medication administration. See worklist for complete nursing assessment. Plan of care reviewed and patient in agreement.
[2024-09-09] MEDS: NOVOLOG FLEXPEN SC (08:11)
[2024-09-09] MEDS: NOVOLOG FLEXPEN-LOW RESISTANCE SC (08:11)
[2024-09-09] MEDS: NOVOLOG FLEXPEN 12 UNITS SC (08:12)
[2024-09-09 08:13] LABS: Glucose - Point of Care 117 mg/dl (70-99)
[2024-09-09] MEDS: BUSPAR 7.5 MG PO (08:22)
[2024-09-09] MEDS: PROTONIX 40 MG PO (08:22)
[2024-09-09] MEDS: PLAVIX 75 MG PO (08:22)
[2024-09-09] MEDS: SENOKOT-S 1 TABLET PO (08:22)
[2024-09-09] MEDS: MAGNESIUM OXIDE 500 MG PO (08:22)
[2024-09-09] MEDS: LOPRESSOR 25 MG PO (08:23)
[2024-09-09] MEDS: NON-FORMULARY ITEM 20 MG PO (08:23)
[2024-09-09] MEDS: FARXIGA 10 MG PO (08:23)
[2024-09-09] MEDS: CRESTOR 40 MG PO (08:23)
[2024-09-09] MEDS: LOW STRENGTH ASPIRIN 81 MG PO (08:23)
[2024-09-09] MEDS: PACERONE 200 MG PO (08:23)
[2024-09-09] MEDS: NEURONTIN 100 MG PO (08:23)
--- NOTE | 2024-09-09 08:26 | PN.DE.MGMTRT ---
Insulin Management
- -
09/09/2024: Diabetes Management Follow up
Patient admitted 08/28 after failed stress test with SOB walking short distance, 08/28 cardiac cath - multivessel disease, 09/04 CABG x 4. Prior to admission was taking Jardiance 10 mg daily, started 1 week before admission, Lantus 40 units @ hs and 12
units NovoLog with breakfast and HS.
Patient is awake, alert and oriented OOB in chair. Able to discuss diabetes care. Pt has a [employer]7 CGM. A1C 7.0%, Cr 1.5, eGFR 50.71
POD # 5, transitioned off insulin infusion on 09/06 evening to home regimen.
09/08 premeal glucose 104 to 240, FBG 133 V, 117 POC this AM. pre-dinner blood sugar has been running >200, will give 1 time dose of 8 units before lunch today
Will make no other changes to current regimen: Cont Lantus 40 units @ HS, AC NovoLog 12 units with breakfast and dinner.
Lengthy discussion with patient regarding insulin timing, explained rapid acting insulin best administered ~ 10 minutes before meals, not at HS. Patient is agreeable. Will cont to follow. Pt will f/u with Endo for routine Diabetes care.
Meds at discharge: Repaglinide 4mg TID, Jardiance 10mg daily, Lantus 40 units @ HS, AC NovoLog 12 units with breakfast and dinner.
Diabetes History
- -
Type of Diabetes: 2 requiring insulin
Pre-Admission Diabetes Regimen
09/09/24
04:35
Creatinine 1.5 H
Lab Results
Hemoglobin A1c 7.0 % (4.0-5.6) H 08/29/24 03:12
Insulin Pump Settings
IP Diabetes Regimen
09/08/24 09/08/24 09/08/24
13:22 17:16 21:46
Glucose
POC Glucose 104 H 240 H 153 H
09/09/24 09/09/24
04:35 08:04
Glucose 133 H
POC Glucose 117 H
Meal type: Breakfast
Amount consumed: 80%
Patient Education
--- NOTE | 2024-09-09 08:45 | PTCARENOTE ---
Pt assisted to bed. CT PA at bedside to cut epicardial v-wire. Pt tolerated. Echo at bedside to complete repeat echo.
--- NOTE | 2024-09-09 09:23 | W.DCSUMMARY ---
Discharge Summary
Discharge Data
Date of Admission: 08/28/24
Date of Discharge: 09/09/24
Total time spent discharging patient (in min): 55
-
Pending Results: No
Hospital Course
Primary care physician:
Dr. Grier
Outpatient senior electrical designer:
Dr. Oakes
Inpatient consultants:
DCA, director energy, DM management middle school principal, Anesthesia
Procedures:
1. Coronary artery bypass grafting x 4 (In situ HOANG to LAD, Ao to RSVG to OM sequential to OM, Ao to RSVG to RPDA)
Primary Diagnosis:
1. Multivessel Coronary Artery Disease
Secondary Diagnoses:
1. Acute on chronic ischemic cardiomyopathy with both systolic and diastolic dysfunction
2. Depressed left ventricular ejection fraction approximately 35%
3. Functional and degenerative mitral valve insufficiency with mild stenosis
4. Mild aortic valve stenosis
5. Moderately severe pulmonary hypertension
6. History of CAD status post stenting x 2
7. Hypertension
8. Hyperlipidemia
9. CKD stage IIIa
10. Insulin-dependent diabetic
11. Morbidly obese with BMI of greater than 30
12. Acute postop hypovolemia with subsequent hypervolemia
HPI: 68-year-old male who presented to the emergency department after a outpatient stress test with 2 months of progressive shortness of breath and stable angina. He ruled in for an NSTEMI and underwent left heart cath with angioplasty to the
right system as the culprit vessel. He had residual significant coronary disease involving the proximal LAD as well as a ELASTIC ATTACHER ZIGZAG lesion to the proximal circumflex. He had significant functional valvular dysfunction at that time with evidence of acute
on chronic ischemic cardiomyopathy. With some diuresis, afterload reduction and inotropic support, his EF did improve to approximately 45% with reduction in mitral valve insufficiency. Therefore, patient was taken to the CVOR on 09/[address] Pinto
Hospital course:
Patient was initially admitted on 08/28 with complaints of chest pain during a stress test. Patient was taken to the Senior Genetic Counselor where multivessel disease was found and eventually taken to the CV OR by Dr. Pinto on 08/30. Postoperatively patient returned
to the CVICU on dobutamine, Levophed, Precedex, and insulin infusions. Patient Precedex was weaned off and was extubated. On 09/05 postoperative day 1 patient's dobutamine was weaned down to off. however, subsequent MVO2 was low and was restarted
at 0.5mcg/kg/min overnight. On 09/06 postoperative day 2, morning mixed venous was improved and dobutamine was turned off. Patient was given 1 5% albumin for low CVP and mediastinal chest tubes were discontinued. On 09/07 postoperative day 3
patient's TSH was low and Synthroid was increased and beta-blockers were resumed. On 09/08 postoperative day 4 patient was doing well ambulating tolerating diuresis. 2 view chest x-ray was stable. On 09/09 postoperative day 5 patient's epicardial
wires were cut at the skin. Repeat echocardiogram was performed and patient was deemed stable for discharge home.
Home medication changes:
See below
Discharge Plan
-
Patient Disposition: Home (Routine Discharge)
Discharge Diagnosis/Procedures: NSTEMI, balloon angioplasty to RCA, CABG, leftatrial appendage clip
Condition: Good
Diet: Low Cholesterol and Diabetic, Carb Controlled
Activity: No strenuous activity
Driving Restrictions: Not until seen by your Dr
Bathing Restrictions: OK to Shower
Other Services: Cardiac Rehab
Specialty Instructions: Weigh Daily- Call MD for wt gain/loss 3 lbs overnight/5 lbs in 1 week
Activity Restrictions/Additional Instructions:
ACTIVITY:
-No strenuous activity: no heavy lifting, pushing, pulling anything over 15 pounds for one month
-continue to use stairs as tolerated
DRIVING RESTRICTIONS:
-No driving for one month or until approved by your surgeon
WOUND CARE:
-Shower daily. Use soap & water.
-No lotions, creams or powders on incision area.
DIET:
-continue a low fat/low cholesterol diet.
-IF you are diabetic, continue carb controlled diet.
CARDIAC REHAB:
-Please make appointment to start in 5-6 weeks with your local hospital program. (See Cardiac Rehabilitation Discharge Booklet).
SPECIALTY INSTRUCTIONS:
-Weigh yourself daily. Call your physician for any weight gain/loss of 3 lbs overnight or 5 lbs in one week.
-REPORT any clicking noise or uneven appearance of your sternum to your surgeon immediately.
-If you smoke, you are instructed to quit. The [facility] smoking hotline phone number is [phone]
Stand Alone Forms: DC Instructions- Cath/EP Lab
Referrals:
CT Transitional Care Nurse [Outside] (The Cardiothoracic Transitional Care Nurse will call you to set up a visit in 1-2 days.)
[facility] [Outside] - 10/16/24 1:00 pm
(Cardiac Rehab Orientation appointment is on October 16 at 1pm.
The Cardiac Rehab gym is located on the first floor of the [facility].)
Genesis Delgado PA-C [Specified Professional Personl] - 10/16/24 12:40 pm
Cornelius Kelley MD [Family Provider] - in one to two months
Ashia Rosas CRNP [Specified Professional Personl] - 10/02/24 1:15 pm
Prescriptions:
New
tramadol 50 mg Tablet
25 mg PO Q6HPRN PRN (Reason: mod to severe pain) Qty: 10 0RF
gabapentin 100 mg Capsule
100 mg PO TID Qty: 30 0RF
pantoprazole 40 mg Tablet,Delayed Release (Dr/Ec)
40 mg PO DAILY Qty: 90 3RF
acetaminophen 325 mg Tablet
650 mg PO Q4HPRN PRN (Reason: mild pain,headache,temp >101F ) Qty: 0 0RF
cyclobenzaprine 10 mg Tablet
5 mg PO Q8HPRN PRN (Reason: muscle spasm) Qty: 30 0RF
clopidogrel 75 mg Tablet
75 mg PO DAILY Qty: 90 3RF
Continued
Jardiance 10 mg Tablet
10 mg PO DAILY
furosemide [Lasix] 40 mg Tablet
40 mg PO DAILY
repaglinide 2 mg Tablet
4 mg PO TID
aspirin 81 mg Tablet,Delayed Release (Dr/Ec)
81 mg PO DAILY
tamsulosin [Flomax] 0.4 mg Capsule
0.4 mg PO DAILY
buspirone [BuSpar] 15 mg Tablet
15 mg PO HS
buspirone [BuSpar] 15 mg Tablet
7.5 mg PO DAILY
rosuvastatin [Crestor] 40 mg Tablet
40 mg PO DAILY
insulin glargine [Lantus Solostar U-100 Insulin] 100 unit/mL (3 mL) Insulin Pen
40 unit SC QPM
Kerendia 20 mg Tablet
20 mg PO DAILY
Mounjaro 5 mg/0.5 mL Pen Injector
5 mg SC MO
Changed
metoprolol succinate 50 mg Tablet Extended Release 24 Hr
50 mg PO DAILY Qty: 0 0RF
Discontinued
triamterene-hydrochlorothiazid [Dyazide] 37.5-25 mg Capsule
1 cap PO DAILY
omega-3 acid ethyl esters 1 gram capsule
2 g PO BID
No Action
Lyumjev KwikPen U-100 Insulin 100 unit/mL Insulin Pen
12 sliding scale dose SC AC
Care Plan Goals
Care Plan Goals:
Problem: Readiness for enhanced knowledge related to diagnosis and treatment plan
Goal: Understand your diagnosis and treatment plan needs, including medications if applicable.
Instructions: Know your diagnosis, underlying causes and treatment plan options, including medications if applicable. Consult with your health care team to learn about your diagnosis and treatment plan, including medications if applicable.
Discharge Date and Time
Print Language: CENTRAL AFRICAN
[2024-09-09] MEDS: NSS IV (10:08)
--- NOTE | 2024-09-09 12:30 | PTCARENOTE ---
Pt showered, tolerated. PIV d/c for discharge.
--- NOTE | 2024-09-09 14:29 | PTCARENOTE ---
Discharge instructions given to patient and patients . Encouraged questions.
== END 2024-09-09 14:29 | disposition home or self-care (01) | DRG 231 ==
LOC: CVICU 15:53
PROVIDERS: Anesthesiology; Clinical Nurse Specialist Acute Care; Hospitalist; Internal Medicine; Nuclear Medicine Nuclear Cardiology; Nurse Practitioner; Nurse Practitioner Adult Health; Physician Assistant Medical; ADMITTING PHYSICIAN Internal Medicine Interventional Cardiology; ATTENDING PHYSICIAN Thoracic Surgery (Cardiothoracic Vascular Surgery); CONSULT PHYSICIAN Thoracic Surgery (Cardiothoracic Vascular Surgery); EMERGENCY PHYSICIAN Emergency Medicine; FAMILY PHYSICIAN Internal Medicine; OTHER PHYSICIAN Internal Medicine Critical Care Medicine
PROC: 02703ZZ Dilation of Coronary Artery, One Artery, Percutaneous Approach (ICD-10-PCS; 2024-08-28)
PROC: B2111ZZ Fluoroscopy of Multiple Coronary Arteries using Low Osmolar Contrast (ICD-10-PCS; 2024-08-28)
PROC: 4A023N7 Measurement of Cardiac Sampling and Pressure, Left Heart, Percutaneous Approach (ICD-10-PCS; 2024-08-28)
PROC: B24BZZ4 Ultrasonography of Heart with Aorta, Transesophageal (ICD-10-PCS; 2024-09-02)
PROC: 5A1223Z Performance of Cardiac Pacing, Continuous (ICD-10-PCS; 2024-09-04)
PROC: 02100Z9 Bypass Coronary Artery, One Artery from Left Internal Mammary, Open Approach (ICD-10-PCS; 2024-09-04)
PROC: 021209W Bypass Coronary Artery, Three Arteries from Aorta with Autologous Venous Tissue, Open Approach (ICD-10-PCS; 2024-09-04)
PROC: 02L70CK Occlusion of Left Atrial Appendage with Extraluminal Device, Open Approach (ICD-10-PCS; 2024-09-04)
PROC: 06BP4ZZ Excision of Right Saphenous Vein, Percutaneous Endoscopic Approach (ICD-10-PCS; 2024-09-04)
PROC: 5A1221Z Performance of Cardiac Output, Continuous (ICD-10-PCS; 2024-09-04)
DX: I21.4 Non-ST elevation (NSTEMI) myocardial infarction (principal); I50.23 Acute on chronic systolic (congestive) heart failure; J96.01 Acute respiratory failure with hypoxia; I13.0 Hypertensive heart and chronic kidney disease with heart failure and stage 1 through stage 4 chronic kidney disease, or unspecified chronic kidney disease; D62 Acute posthemorrhagic anemia; J98.11 Atelectasis; D69.59 Other secondary thrombocytopenia; E86.1 Hypovolemia; L23.1 Allergic contact dermatitis due to adhesives; T80.89XA Other complications following infusion, transfusion and therapeutic injection, initial encounter; Y84.8 Other medical procedures as the cause of abnormal reaction of the patient, or of later complication, without mention of misadventure at the time of the procedure; F41.9 Anxiety disorder, unspecified; N18.31 Chronic kidney disease, stage 3a; I44.1 Atrioventricular block, second degree; E11.22 Type 2 diabetes mellitus with diabetic chronic kidney disease; N40.0 Benign prostatic hyperplasia without lower urinary tract symptoms; I25.118 Atherosclerotic heart disease of native coronary artery with other forms of angina pectoris; E66.01 Morbid (severe) obesity due to excess calories; E78.00 Pure hypercholesterolemia, unspecified; I08.0 Rheumatic disorders of both mitral and aortic valves; I44.4 Left anterior fascicular block; I25.82 Chronic total occlusion of coronary artery; I25.5 Ischemic cardiomyopathy; I27.20 Pulmonary hypertension, unspecified; Z68.31 Body mass index [BMI] 31.0-31.9, adult; Z95.5 Presence of coronary angioplasty implant and graft; Z87.891 Personal history of nicotine dependence; Z79.4 Long term (current) use of insulin; Z79.01 Long term (current) use of anticoagulants; Z82.49 Family history of ischemic heart disease and other diseases of the circulatory system
CPT/HCPCS: 93308; 70355; 71045; 71046; 71250; 78452; 80048; 80053; 80061; 81003; 81015; 82248; 82330; 82565; 82805; 82810; 82947; 82962; 83036; 83735; 83880; 84132; 84302; 84484; 84520; 85014; 85018; 85025; 85027; 85049; 85347; 85610; 85730; 86803; 86850; 86900; 86901; 86920; 92920; 93005; 93017; 93306; 93312; 93320; 93325; 93458; 93880; 94002; 96374; 96375; 99152; 99153; 99291; A9500; C1725; C1874; C1887; C1894; P9045; Q9950; Q9967

== ENCOUNTER 2024-10-17 08:51 | Outpatient (RCR) | payer BC, SELFPAY ==
[2024-10-16 14:51] LABS: Glucose - Point of Care 91 mg/dl (70-99)
[2024-10-16 15:36] LABS: Glucose - Point of Care 91 mg/dl (70-99)
[2024-10-17 07:29] LABS: Glucose - Point of Care 122 mg/dl (70-99)
[2024-10-17 08:10] LABS: Glucose - Point of Care 110 mg/dl (70-99)
== END 2024-10-17 23:59 | disposition home or self-care (01) ==
LOC: CRHB 08:51
PROVIDERS: ATTENDING PHYSICIAN Internal Medicine Cardiovascular Disease
DX: I25.10 Atherosclerotic heart disease of native coronary artery without angina pectoris (principal); Z95.1 Presence of aortocoronary bypass graft
CPT/HCPCS: 82962; 93798

== ENCOUNTER 2024-11-18 08:56 | Outpatient (RCR) | payer BC, SELFPAY ==
[2024-10-21 08:00] LABS: Glucose - Point of Care 108 mg/dl (70-99)
[2024-10-21 08:51] LABS: Glucose - Point of Care 112 mg/dl (70-99)
[2024-10-23 16:06] LABS: Glucose - Point of Care 101 mg/dl (70-99)
[2024-10-23 17:03] LABS: Glucose - Point of Care 102 mg/dl (70-99)
[2024-10-25 08:05] LABS: Glucose - Point of Care 118 mg/dl (70-99)
[2024-10-25 09:06] LABS: Glucose - Point of Care 117 mg/dl (70-99)
[2024-10-28 08:13] LABS: Glucose - Point of Care 118 mg/dl (70-99)
[2024-10-28 09:11] LABS: Glucose - Point of Care 115 mg/dl (70-99)
[2024-11-01 08:08] LABS: Glucose - Point of Care 124 mg/dl (70-99)
[2024-11-01 09:12] LABS: Glucose - Point of Care 120 mg/dl (70-99)
== END 2024-11-18 23:59 | disposition home or self-care (01) ==
LOC: CRHB 08:56
PROVIDERS: ATTENDING PHYSICIAN Internal Medicine Cardiovascular Disease
DX: I25.10 Atherosclerotic heart disease of native coronary artery without angina pectoris (principal); Z95.1 Presence of aortocoronary bypass graft
CPT/HCPCS: 82962; 93797; 93798

== ENCOUNTER 2024-11-29 08:55 | Outpatient (RCR) | payer BC, SELFPAY | END 2024-11-29 11:25 | disposition home or self-care (01) | LOC: CRHB 08:55 | PROVIDERS: ATTENDING PHYSICIAN Internal Medicine Cardiovascular Disease | DX: I25.10 Atherosclerotic heart disease of native coronary artery without angina pectoris (principal); Z95.1 Presence of aortocoronary bypass graft; I12.9 Hypertensive chronic kidney disease with stage 1 through stage 4 chronic kidney disease, or unspecified chronic kidney disease; E78.5 Hyperlipidemia, unspecified; N18.30 Chronic kidney disease, stage 3 unspecified | CPT/HCPCS: 93797; 93798 ==